=== PATIENT | female | born 1945 | race Caucasian/White ===

== ENCOUNTER → 2017-10-14 | Outpatient (CLI) | payer MEDICARE ==
[2016-12-06 14:00] VITALS: BMI 16.8
[~2017-10-14] MED LIST: ACE325 PO; ACE500 PO; ALB17R INH; ALB6.7R; ALB6.7R INH; ALBU8.5H IH; ALBU8TAB4 INH; AMO500 PO; AMOX-362 PO; AMOX500T10 PO; AMOX875T60 PO; ARTO15 OP; ASMANEXPT IH; ASPI-1471 PO; AUG500 PO; AZIT-1 PO; BEN100 PO; BENZ100C26 PO; BENZ200C15 PO; CAFF200T69 PO; CALC-515 PO; CEF300 PO; CETI-169 PO; CHOL10005 PO; CHOL200038 PO; CIP500 PO; CIPHCO RIGHT EAR; CITA-137 PO; CLAR-1 PO; CLAR-13 PO; CLI150 PO; CLO10 PO; CORED RIGHT EAR; CYAN50TA3 PO; DEN60I SUBQ; DEXL60CA6 PO; DEXT1DRO15 OP; DIA2 PO; DIA5 PO; DICL100G39 TOP; DOC100 PO; DOXY-179 PO; ESOM40CA42 PO; ESTR-1 PO; ESTR-41; ESTR-41 PO; ESTR0.5T16 PO; ESTR2TAB26 PO; FISH OIL1 CAP PO; FLU IM; FLU45SYR25 IM ONLY; FLUC100T35 PO; FLUT16SP19; FLUT16SP19 NS; FLUT16SP20 NS; FOLI-68 PO; GAS X; GLUC500C29 PO; GLUC500T13 PO; GUALA600 PO; HYD200 PO; HYDR-4225 PO; HYDR200T38 PO; HYDR200T42 PO; IBUP-1618 PO; IBUP600T22 PO; ITR100; KET10 PO; LACT1CAP6 PO; LACT1CAP74 PO; LEV500 PO; LEVO-3 PO; LEVO-85 PO; LEVO50 PO; LEVO50TA80 PO; LEVO50TA86 PO; LEVO750T44 PO; LEVO75TA73 PO; LEVO88TA45 PO; LIO5 PO; LIOT5TAB10 PO; LIOT5TAB18 PO; LOP2 PO; LOR5/325 PO; LORA-788 PO; MECL12.5 PO; MELO-205 PO; MES400 PO; MESA1.2T2 PO; MESA4ENE RC; MESA800T PO; METO-1 PO; METR-1 PO; MIRT-22 PO; MIRT-27 PO; MIRT7.5T2 PO; MOMR; MONT10TA PO; MOX400 PO; MULT-900 PO; NYSL PO; NYST100040 PO; OMEG-11 PO; ONDA4TAB PO; ONDA4TAB9 PO; OSE75 PO; PAN40 PO; PANT40TA65 PO; PNEI IJ; PNEU0.5D3 IM; POTT20 PO; PRE1 PO; PRE10 PO; PRE5 PO; PRED-1 PO; PRED-420 PO; PRED20TA6 PO; PRED5DRO34 OS; PREOD OD; PROM-110 PO; PSEU-112 PO; PSEU-123; RANI-320 PO; Sucralfate PO; TOBR5DRO OP; TRA50 PO; TRAM-420 PO; TRAM-627 PO; TRI40I IM; TRIA60LO10 TP; TUM500 PO; [UNRECOGNIZED DRUG - CODE]; [UNRECOGNIZED DRUG - CODE] IH; [UNRECOGNIZED DRUG - CODE] PO; [UNRECOGNIZED DRUG - CODE] PO; [UNRECOGNIZED DRUG - CODE] PO; [UNRECOGNIZED DRUG - CODE] PR; [UNRECOGNIZED DRUG - OTHER]
[2017-10-14 15:35] LABS: PLATELET COUNT, AUTOMATED 204 K/uL (150-450)
== END ==
LOC: LAB 14:59
PROVIDERS: ATTEND Internal Medicine
DX: R42 Dizziness and giddiness (principal); R23.2 Flushing; E03.9 Hypothyroidism, unspecified; H93.19 Tinnitus, unspecified ear; M35.00 Sjogren syndrome, unspecified; M32.9 Systemic lupus erythematosus, unspecified; E55.9 Vitamin D deficiency, unspecified; R73.09 Other abnormal glucose
CPT/HCPCS: 36415; 81001; 82040; 82247; 82306; 82310; 82374; 82435; 82565; 82947; 83036; 84075; 84132; 84155; 84295; 84443; 84450; 84460; 84520; 84550; 85025; 85651; 86038; 86140; 86200; 86430

== ENCOUNTER → 2017-11-18 | Outpatient (CLI) | payer MEDICARE ==
[2016-12-06 14:00] VITALS: BMI 16.8
[~2017-11-18] MED LIST changes: +CETI-176 PO; -HYDR200T38 PO; +HYDR200T77 PO
[2017-11-18 09:39] LABS: PLATELET COUNT, AUTOMATED 236 K/uL (150-450)
== END ==
LOC: LAB 09:12
PROVIDERS: ATTEND Internal Medicine
DX: E03.9 Hypothyroidism, unspecified (principal); R23.2 Flushing; E55.9 Vitamin D deficiency, unspecified; M32.9 Systemic lupus erythematosus, unspecified; R41.3 Other amnesia
CPT/HCPCS: 36415; 82040; 82247; 82310; 82374; 82435; 82565; 82947; 84075; 84132; 84155; 84295; 84439; 84443; 84450; 84460; 84520; 85025

== ENCOUNTER → 2018-01-17 | Outpatient (CLI) | payer MEDICARE ==
[2016-12-06 14:00] VITALS: BMI 16.8
[~2018-01-17] MED LIST changes: +CHOL200051 PO; +ESCI5TAB3 PO; +HYDR10TA3 PO
--- NOTE | 2018-01-17 09:16 | EKG ---
FACILITY: [facility] PATIENT NAME: GABRIELA ROWLEY : [id number] MR: [id number] V: [id number] EXAM DATE: ORDERING PHYSICIAN: SWATHI SIMS TECHNOLOGIST: [place] Meek Reason : CHEST PAIN Blood Pressure : / mmHG Vent. Rate : 063 BPM Atrial Rate : 063 BPM P-R Int : 140 ms QRS Dur : 084 ms QT Int : 442 ms P-R-T Axes : 083 -25 080 degrees QTc Int : 452 ms Normal sinus rhythm Right atrial enlargement Borderline ECG When compared with ECG of 21-MAR-2017 11:43, Previous ECG has undetermined rhythm, needs review Referred By: Confirmed By:
[2018-01-17 09:34] LABS: PLATELET COUNT, AUTOMATED 201 K/uL (150-450)
== END ==
LOC: LAB 08:42
PROVIDERS: ATTEND Internal Medicine
DX: I51.7 Cardiomegaly (principal); E03.9 Hypothyroidism, unspecified
CPT/HCPCS: 36415; 82040; 82247; 82310; 82374; 82435; 82565; 82947; 84075; 84132; 84155; 84295; 84439; 84443; 84450; 84460; 84484; 84520; 85025

== ENCOUNTER → 2018-04-02 | Outpatient (CLI) | payer MEDICARE ==
[2016-12-06 14:00] VITALS: BMI 16.8
--- NOTE | 2018-04-02 15:42 | EKG ---
FACILITY: [facility] PATIENT NAME: GABRIELA ROWLEY : [id number] MR: [id number] V: [id number] EXAM DATE: ORDERING PHYSICIAN: DUONG JEFFERS TECHNOLOGIST: JASMYN Test Reason : HEART PALPITATIONS Blood Pressure : / mmHG Vent. Rate : 082 BPM Atrial Rate : 082 BPM P-R Int : 136 ms QRS Dur : 084 ms QT Int : 408 ms P-R-T Axes : 085 -42 082 degrees QTc Int : 476 ms Sinus rhythm with occasional premature ventricular complexes Right atrial enlargement Left axis deviation Abnormal ECG When compared with ECG of 17-JAN-2018 07:51, premature ventricular complexes are now present Referred By: AURY Confirmed By:
== END ==
LOC: RESP 15:33
PROVIDERS: ATTEND Surgery
DX: R94.31 Abnormal electrocardiogram [ECG] [EKG] (principal)

== ENCOUNTER → 2018-04-17 | Outpatient (CLI) | payer MEDICARE ==
[2016-12-06 14:00] VITALS: BMI 16.8
[~2018-04-17] MED LIST changes: +REGADENOSON 0.4 MG/5 ML SYR ONE; -TRIA60LO10 TP; +TRIA60LO3 TP
== END ==
LOC: NUC 02:10
PROVIDERS: ATTEND Internal Medicine
DX: R07.9 Chest pain, unspecified (principal)
CPT/HCPCS: J2785

== ENCOUNTER 2018-04-21 15:18 | Emergency (ER) | payer MEDICARE ==
[2016-12-06 14:00] VITALS: Wt 40.9 kg
[2018-04-21] MEDS: NS(*) 0.9% 1000 ML BAG 1,000 ML IV ONE ×2 (10:00→16:00)
[~2018-04-21 15:18] MED LIST changes: -BUDE3CAP4 PO
--- NOTE | 2018-04-21 15:35 | ER Report ---
History and Physical Time Seen By MD: 15:34 Hx. of Stated Complaint: NAUSEA AND DIARRHEA SINCE NUC MED CONTRAST THIS AM. (ARTIS ROLLINS MD) HPI/ROS CHIEF COMPLAINT: nausea and diarrhea HISTORY OF PRESENT ILLNESS: This is a 72 year old female. She had a Lexiscan for chest pain today. This was ordered after a pre-op evaluation prior to her having a colonoscopy this week on Saturday. She had been having chest pain at time. Ongoing problem has been with diarrhea and Dr. Loomis had been evaluating. Today after getting the Lexiscan, she has had ongoing vomiting as well as worsened diarrhea. She is feeling very weak and light headed when standing. Having abdominal cramping as well. Has felt like she has been urinating more than normal today as well, but no dysuria. No fevers, but she feels very cold with shivering. General weakness, but no focal weakness in arm or leg. No cough or shortness of breath with this. No chest pain at this time. REVIEW OF SYSTEMS: As above. (ARTIS ROLLINS MD) Allergies: Coded Allergies: Sulfa (Sulfonamide Antibiotics) (Verified Allergy, Severe, VISUAL DISTURBANCES, 12/06/16) clavulanic acid (Verified Allergy, Severe, CHOLITIS, 12/06/16) metoclopramide (Verified Allergy, Severe, PSYCHOTIC EFFECTS, 12/06/16) codeine (Verified Allergy, Intermediate, NAUSEA, 12/06/16) meperidine (Verified Allergy, Intermediate, NAUSEA, HIVES, 12/06/16) morphine (Verified Allergy, Intermediate, NAUSEA, HIVES, 12/06/16) lactose (Verified Allergy, Mild, GI DISTRESS, 12/06/16) Niacin Preparations (Verified Allergy, Unknown, UNKNOWN, 12/06/16) cephalexin (Verified Allergy, Unknown, UNKNOWN, 12/06/16) furosemide (Verified Allergy, Unknown, 12/06/16) levofloxacin (Verified Adverse Reaction, Mild, 12/06/16) tendon inflammation Uncoded Allergies: erythromycin (Allergy, Unknown, 06/01/14) Home Meds Active Scripts Ondansetron (ZOFRAN ODT) 4 Mg Tab.rapdis, 4 MG PO every 6 hours Y for NAUSEA/ VOMITING, #20 TAB TAKE 1 TABLET BY MOUTH EVERY 12 HOURS Prov:MARIANO FERNANDO DO 04/21/18 Hydroxyzine Hcl (HYDROXYZINE HCL) 10 Mg Tablet, 1-2 TAB PO TID Y for itching, # 60 TAB 6 Refills Prov:SWATHI SIMS MD 04/08/18 Montelukast Sodium (SINGULAIR) 10 Mg Tablet, 1 TAB PO QDAY, #90 TAB 6 Refills Prov:SWATHI SIMS MD 11/27/17 Levothyroxine Sodium (LEVOTHYROXINE SODIUM) 75 Mcg Tablet, 75 MCG PO QDAY, #90 TAB 3 Refills Prov:SWATHI SIMS MD 11/27/17 Prednisone 5 Mg Tab (PREDNISONE 5 MG TAB) 5 Mg Tablet, 5 MG PO QDAY, #90 TAB 2 Refills Prov:SWATHI SIMS MD 11/27/17 Pantoprazole Sodium (PANTOPRAZOLE SODIUM) 40 Mg Tablet.dr, 40 MG PO QDAY, #90 TAB.SR 3 Refills Prov:SWATHI SIMS MD 11/27/17 Hydroxychloroquine Sulfate (HYDROXYCHLOROQUINE SULFATE) 200 Mg Tablet, 1 TAB PO QDAY, #90 TAB 4 Refills Prov:SWATHI SIMS MD 11/27/17 Albuterol Sulfate 90 Mcg/Act (PROAIR HFA 90 MCG/ACT) 8.5 Gm Hfa.aer.ad, 2 PUFF IH TID Y for to healp breathing. , #1 INHALER Prov:SWATHI SIMS MD 11/27/17 Fluticasone Prop 50 Mcg Ns (FLONASE 50 MCG NS) 16 Gm [place].susp, 2 SPRAYS NA QDAY for 30 Days, #1 BOT 3 Refills Prov:JAY ROWLEY JR, MD 10/31/17 Dextran 70/Hypromellose (ARTIFICIAL TEARS) 1 Each [place], 1 EACH OP QID, # 15 ML Prov:SWATHI SIMS MD 07/04/17 Reported Medications Cholecalciferol (Vitamin D3) (D-2000) 2,000 Unit Capsule, 2000 UNIT PO QDAY, CAPSULE 11/27/17 Reviewed Nurses Notes: Yes (ARTIS ROLLINS MD) Hx Smoking: No Smoking Status: Never Smoker Exposure to Second Hand Smoke?: Yes Hx Substance Use Disorder: No Hx Alcohol Use: No (ARTIS ROLLINS MD) Constitutional Vital Sign - Last 24 Hours 04/21/18 04/21/18 04/21/18 04/21/18 15:19 15:21 15:24 15:26 Pulse 82 Resp 18 B/P (MAP) 137/67 (90) 137/67 143/62 (89) 108/75 (86) Pulse Ox 92 O2 Delivery Room Air 04/21/18 04/21/18 04/21/18 04/21/18 15:28 15:34 15:46 16:00 Pulse 82 Resp 18 B/P (MAP) 61/48 (52) 142/62 (88) 141/75 (97) 134/72 (92) 108/75 (86) 61/48 (52) Pulse Ox 94 O2 Delivery Room Air 04/21/18 04/21/18 04/21/18 04/21/18 16:03 16:15 16:18 16:30 Pulse 81 84 Resp 14 13 B/P (MAP) 138/72 (94) 143/70 (94) 04/21/18 04/21/18 04/21/18 04/21/18 16:33 17:21 17:30 17:35 Pulse 80 80 Resp 12 11 B/P (MAP) 138/109 (119) 149/74 (99) 04/21/18 04/21/18 04/21/18 04/21/18 17:45 17:50 18:05 18:20 Pulse 79 80 82 Resp 17 42 28 B/P (MAP) 144/79 (100) 04/21/18 04/21/18 04/21/18 04/21/18 18:35 18:40 19:25 19:40 Pulse 90 70 83 84 Resp 13 12 13 12 Pulse Ox 96 95 04/21/18 04/21/18 04/21/18 04/21/18 19:55 20:10 20:25 20:26 Pulse 102 78 79 81 Resp 44 15 21 18 B/P (MAP) 150/84 (106) 150/84 (106) Pulse Ox 96 95 O2 Delivery Room Air 04/21/18 04/21/18 20:27 20:29 Pulse 85 101 Resp 18 18 B/P (MAP) 140/73 (95) 137/86 (103) Pulse Ox 93 96 O2 Delivery Room Air Room Air (MARIANO FERNANDO DO) Physical Exam General Appearance: The patient is alert. No acute distress. Eyes: Pupils are equal, round. No pallor, injection or icterus. ENT: Mucous membranes are dry, but otherwise normal oral mucosa. Posterior oropharynx is normal. Normal nasal mucosa. Normal tympanic membranes and canals. Neck: Supple and non tender. Respiratory: Breathing easily and unlabored. Lungs are clear to auscultation. Cardiovascular: Regular rate and rhythm. No murmurs, gallops or rubs. Normal capillary refill. No edema. Gastrointestinal: Abdomen is soft, some discomfort with palpation on the left abdomen. Nondistended. Some guarding, but no rebound. Hyperactive bowel sounds. Neurological: Alert and oriented x3. Skin: Warm and dry. DIFFERENTIAL DIAGNOSIS: After history and physical exam, differential diagnosis was considered for diarrhea and abdominal cramping, the diarrhea has been chronic and undergoing workup with Dr. Frazier, worsen diarrhea and vomiting after nuclear med scan today. ([facility]) Medical Decision Making Data Points Result Diagram: 04/21/18 18004/21/18 180 Laboratory Hematology Test 04/21/18 16:50 04/21/18 18:05 Urine Color Straw Urine Clarity Clear Urine pH 7.0 pH (4.8-9.5) Urine Specific [place] 1.008 Urine Protein Negative mg/dL (NEGATIVE) Urine Glucose (UA) Negative mg/dL (NEGATIVE) Urine Ketones Trace mg/dL (NEGATIVE) Urine Blood Small (NEGATIVE) Urine Nitrite Negative (NEGATIVE) Urine Bilirubin Negative (NEGATIVE) Urine Urobilinogen Negative mg/dL (0.2-1.9) Urine Leukocyte Esterase Negative (NEGATIVE) Urine RBC 1 /HPF (0-2/HPF) Urine WBC 3 /HPF (0-5/HPF) Urine Squamous Epithelial Cells None /LPF (</=FEW) Urine Bacteria Negative /HPF (NONE-FEW) Urine Mucus None /HPF (NONE-FEW) Red Blood Count 4.25 M/uL (4.17-5.56) Mean Corpuscular Volume 93.1 fL (80.0-96.0) Mean Corpuscular Hemoglobin 32.0 pg (26.0-33.0) Mean Corpuscular Hemoglobin Concent 34.3 g/dL (32.0-36.0) Red Cell Distribution Width 13.5 % (11.5-14.5) Mean Platelet Volume 8.7 fL (7.2-11.1) Neutrophils (%) (Auto) 83.7 % (39.4-72.5) Lymphocytes (%) (Auto) 8.1 % (17.6-49.6) Monocytes (%) (Auto) 7.5 % (4.1-12.4) Eosinophils (%) (Auto) 0.6 % (0.4-6.7) Basophils (%) (Auto) 0.1 % (0.3-1.4) Nucleated RBC Relative Count (auto) 0.0 /100WBC Neutrophils # (Auto) 6.9 K/uL (2.0-7.4) Lymphocytes # (Auto) 0.7 K/uL (1.3-3.6) Monocytes # (Auto) 0.6 K/uL (0.3-1.0) Eosinophils # (Auto) 0.0 K/uL (0.0-0.5) Basophils # (Auto) 0.0 K/uL (0.0-0.1) Nucleated RBC Absolute Count (auto) 0.00 K/uL Sodium Level 141 mmol/L (137-145) Potassium Level 3.7 mmol/L (3.5-5.0) Chloride Level 107 mmol/L (98-107) Carbon Dioxide Level 24 mmol/L (22-31) Blood Urea Nitrogen 9 mg/dl (7-18) Creatinine 0.70 mg/dl (0.52-1.04) Glomerular Filtration Rate Calc > 60.0 Random Glucose 83 mg/dl (75-110) Calcium Level 7.8 mg/dl (8.4-10.2) Total Bilirubin 0.5 mg/dl (0.2-1.3) Aspartate Amino Transf (AST/SGOT) 25 U/L (0-35) Alanine Aminotransferase (ALT/SGPT) 23 U/L (0-56) Alkaline Phosphatase 59 U/L (0-126) Troponin I < 0.012 ng/ml Total Protein 6.2 g/dl (6.3-8.2) Albumin 3.4 g/dl (3.5-5.0) Chemistry Test 04/21/18 16:50 04/21/18 18:05 Urine Color Straw Urine Clarity Clear Urine pH 7.0 pH (4.8-9.5) Urine Specific [place] 1.008 Urine Protein Negative mg/dL (NEGATIVE) Urine Glucose (UA) Negative mg/dL (NEGATIVE) Urine Ketones Trace mg/dL (NEGATIVE) Urine Blood Small (NEGATIVE) Urine Nitrite Negative (NEGATIVE) Urine Bilirubin Negative (NEGATIVE) Urine Urobilinogen Negative mg/dL (0.2-1.9) Urine Leukocyte Esterase Negative (NEGATIVE) Urine RBC 1 /HPF (0-2/HPF) Urine WBC 3 /HPF (0-5/HPF) Urine Squamous Epithelial Cells None /LPF (</=FEW) Urine Bacteria Negative /HPF (NONE-FEW) Urine Mucus None /HPF (NONE-FEW) White Blood Count 8.3 k/uL (4.5-11.0) Red Blood Count 4.25 M/uL (4.17-5.56) Hemoglobin 13.6 g/dL (12.0-16.0) Hematocrit 39.6 % (34.0-47.0) Mean Corpuscular Volume 93.1 fL (80.0-96.0) Mean Corpuscular Hemoglobin 32.0 pg (26.0-33.0) Mean Corpuscular Hemoglobin Concent 34.3 g/dL (32.0-36.0) Red Cell Distribution Width 13.5 % (11.5-14.5) Platelet Count 169 K/uL (150-450) Mean Platelet Volume 8.7 fL (7.2-11.1) Neutrophils (%) (Auto) 83.7 % (39.4-72.5) Lymphocytes (%) (Auto) 8.1 % (17.6-49.6) Monocytes (%) (Auto) 7.5 % (4.1-12.4) Eosinophils (%) (Auto) 0.6 % (0.4-6.7) Basophils (%) (Auto) 0.1 % (0.3-1.4) Nucleated RBC Relative Count (auto) 0.0 /100WBC Neutrophils # (Auto) 6.9 K/uL (2.0-7.4) Lymphocytes # (Auto) 0.7 K/uL (1.3-3.6) Monocytes # (Auto) 0.6 K/uL (0.3-1.0) Eosinophils # (Auto) 0.0 K/uL (0.0-0.5) Basophils # (Auto) 0.0 K/uL (0.0-0.1) Nucleated RBC Absolute Count (auto) 0.00 K/uL Glomerular Filtration Rate Calc > 60.0 Calcium Level 7.8 mg/dl (8.4-10.2) Total Bilirubin 0.5 mg/dl (0.2-1.3) Aspartate Amino Transf (AST/SGOT) 25 U/L (0-35) Alanine Aminotransferase (ALT/SGPT) 23 U/L (0-56) Alkaline Phosphatase 59 U/L (0-126) Troponin I < 0.012 ng/ml Total Protein 6.2 g/dl (6.3-8.2) Albumin 3.4 g/dl (3.5-5.0) Urinalysis Test 04/21/18 16:50 Urine Color Straw Urine Clarity Clear Urine pH 7.0 pH (4.8-9.5) Urine Specific [place] 1.008 Urine Protein Negative mg/dL (NEGATIVE) Urine Glucose (UA) Negative mg/dL (NEGATIVE) Urine Ketones Trace mg/dL (NEGATIVE) Urine Blood Small (NEGATIVE) Urine Nitrite Negative (NEGATIVE) Urine Bilirubin Negative (NEGATIVE) Urine Urobilinogen Negative mg/dL (0.2-1.9) Urine Leukocyte Esterase Negative (NEGATIVE) Urine RBC 1 /HPF (0-2/HPF) Urine WBC 3 /HPF (0-5/HPF) Urine Squamous Epithelial Cells None /LPF (</=FEW) Urine Bacteria Negative /HPF (NONE-FEW) Urine Mucus None /HPF (NONE-FEW) (MARIANO FERNANDO DO) EKG/Imaging EKG Interpretation 12 lead EKG: Rhythm: Normal sinus rhythm, rate 92 [place]: Left axis deviation QRS: normal ST segments: No ST segment elevation or depression (ARTIS ROLLINS MD) Imaging Results: CT scan of the abdomen and pelvis with IV contrast was obtained. The results of the study are EXAMINATION: CT abdomen and pelvis with contrast COMPARISON: None. HISTORY: Chronic worsening abdominal cramping and diarrhea. PROCEDURE: Multiplanar contrast enhanced CT of the abdomen and pelvis with 75 mL intravenous Isovue 370. One of the following dose optimization techniques was utilized in the performance of this exam: Automated exposure control; adjustment of the mA and/or kV according to the patient's size; or use of an iterative reconstruction technique. Specific details can be referenced in the facility's radiology CT exam operational policy. FINDINGS: Visualized thorax: No evidence of acute disease within the visualized lower thorax. Liver: Negative. Gallbladder and biliary system: Negative Spleen: Negative. Pancreas: Negative. Adrenal glands: Negative. Kidneys and bladder: No definite radiopaque urolithiasis is identified. Bilateral mild pelviectasis is favored to be physiologic; no caliectasis or definite radiopaque urolithiasis is identified. Urinary bladder is within normal limits. Vessels: Aortoiliac moderate atherosclerosis. No aneurysm. Portal venous system and IVC are within normal limits. The superior mesenteric artery and superior mesenteric vein are patent. Bowel and mesentery: Stomach is within normal limits. Mildly prominent fluid- filled loops of proximal and mid small bowel. The distal small bowel wall including the terminal ileum is markedly thickened and edematous with prominent associated mesenteric edema as well as trace fluid tracking along the mesenteric leaves and within the dependent pelvis. No bowel wall pneumatosis. The appendix is not identified. Minimal liquid stool in the colon. Sigmoidectomy with a few diverticula along the distal colon. No definite site of acute colonic inflammation. Pelvic organs: Hysterectomy. No adnexal mass. Lymph nodes: No adenopathy. Free air/free fluid: Small amount of fluid extending along the mesentery and within the dependent pelvis is noted above. No organized fluid collection. No pneumoperitoneum. Abdominal wall and osseous structures: Abdominal wall is intact. Osseous structures are demineralized. Prior discectomy and posterior decompression at L4 -L5. No acute osseous abnormality. IMPRESSION: 1. Marked inflammation of the distal small bowel and terminal ileum is most suggestive of an infectious versus inflammatory enteritis. Ischemic enteritis due to distal mesenteric vascular occlusion is thought to be less likely. 2. Small amount of free fluid in the mesentery and dependent pelvis. This is favored to be reactive with fluid related to infection or perforation consider less likely. 3. Additional nonacute findings as described above. The study was read by the radiologist. I viewed the images myself on the PACS system. (MARIANO FERNANDO DO) ED Course/Re-evaluation Clinical Indication for ER IV: Hydration, IV Access ED Course Orthostatic hypotension and dizziness with sitting and then much worse with standing. Turned Over The care of the patient was turned over to Dr. Fernando. Artis Rollins M.D. I authorize my typed signature that I authenticated this report. (ARTIS ROLLINS MD) Clinical Indication for ER IV: Hydration, IV Access ED Course Care assumed at shift change from Dr. Rollins with a diagnostic CT pending of her abdomen. Patient's had long-term diarrhea undergoing an extensive evaluation. She has a colonoscopy planned in 2 days. She has a family history of inflammatory bowel disease. Her orthostatics are grossly positive with significant drop in her blood pressure from 140-60 systolic. He was hydrated with 2 L of crystalloid. Her CAT scan returns with gross enteritis, either infectious or inflammatory. Ischemic bowel is pretty much ruled out with good perfusion of the arteries on CT scan with contrast. Patient repeat orthostatics are unremarkable. Patient's diagnostic laboratory studies are unremarkable. Patient be discharged home on clear liquid diet with Zofran. 04/21/2018 8:26:05 pm case discussed with Dr. Jamal Frazier, general surgeon on- call, who is agreeable with the patient going home. His lungs. Orthostatics are unremarkable. Decision to Disposition Date: Apr 21, 2018 Decision to Disposition Time: 20:20 (MARIANO FERNANDO DO) Depart Departure Latest Vital Signs Vital Signs Date Time Temp Pulse Resp B/P (MAP) Pulse Ox O2 Delivery O2 Flow Rate FiO2 04/21/18 20:29 101 18 137/86 (103) 96 Room Air (MARIANO FERNANDO DO) Impression: Primary Impression: Near syncope Additional Impressions: Vomiting and diarrhea Enteritis Condition: Improved Disposition: HOME OR SELF-CARE Referrals: SWATHI SIMS MD (PCP) New Scripts Ondansetron (ZOFRAN ODT) 4 Mg Tab.rapdis 4 MG PO every 6 hours Y for NAUSEA/VOMITING, #20 TAB TAKE 1 TABLET BY MOUTH EVERY 12 HOURS Prov: MARIANO FERNANDO DO 04/21/18 Patient Instructions: Near Syncope (ED) Additional Instructions: Drink plenty of fluids, especially sports drinks with electrolytes Use Zofran to control nausea and vomiting Follow-up with Dr. Frazier as planned Problem Qualifiers ARTIS ROLLINS MD Apr 21, 2018 15:34 MARIANO FERNANDO DO Apr 21, 2018 20:23
[2018-04-21] MEDS ORDERED: EMS NS 0.9%(*) 1000 ML BAG 1,000 ML IV ONE (16:30)
[2018-04-21] MEDS ORDERED: IOPAMIDOL 76% 75 ML INFUS BTL 75 ML ONE (16:48)
--- NOTE | 2018-04-21 16:55 | EKG ---
FACILITY: [facility] PATIENT NAME: GABRIELA ROWLEY : [id number] MR: [id number] V: [id number] EXAM DATE: ORDERING PHYSICIAN: LORA MCINTYRE TECHNOLOGIST: LARISA Meek Reason : DIZZY Blood Pressure : / mmHG Vent. Rate : 092 BPM Atrial Rate : 092 BPM P-R Int : 132 ms QRS Dur : 080 ms QT Int : 360 ms P-R-T Axes : 084 -58 072 degrees QTc Int : 445 ms Normal sinus rhythm with sinus arrhythmia Right atrial enlargement Left axis deviation Pulmonary disease pattern Abnormal ECG When compared with ECG of 02-APR-2018 13:47, premature ventricular complexes are no longer present Referred By: MIGUELINA Confirmed By:
[2018-04-21 18:14] LABS: PLATELET COUNT, AUTOMATED 169 K/uL (150-450)
--- NOTE | 2018-04-21 20:12 | RADIOLOGY IMAGING REPORT ---
[place] [facility] [place] Temo Chavez : 1945 MR: [id number] V: [id number] EXAM DATE: ORDERING PHYSICIAN: LORA MCINTYRE TECHNOLOGIST: Location: [facility] [place] Patient: Temo Chavez : 1945 Visit/Account:[id number] Date of Sevice: 04/21/2018 EXAMINATION: CT abdomen and pelvis with contrast COMPARISON: None. HISTORY: Chronic worsening abdominal cramping and diarrhea. PROCEDURE: Multiplanar contrast enhanced CT of the abdomen and pelvis with 75 mL intravenous Isovue 3 70. One of the following dose optimization techniques was utilized in the performance of this exam: A utomated exposure control; adjustment of the mA and/or kV according to the patient's size; or use of an iterative reconstruction technique. Specific details can be referenced in the facility's radiolo gy CT exam operational policy. FINDINGS: Visualized thorax: No evidence of acute disease within the visualized lower thorax. Liver: Negative. Gallbladder and biliary system: Negative Spleen: Negative. Pancreas: Negative. Adrenal glands: Negative. Kidneys and bladder: No definite radiopaque urolithiasis is identified. Bilateral mild pelviectasis i s favored to be physiologic; no caliectasis or definite radiopaque urolithiasis is identified. Urinar y bladder is within normal limits. Vessels: Aortoiliac moderate atherosclerosis. No aneurysm. Portal venous system and IVC are within no rmal limits. The superior mesenteric artery and superior mesenteric vein are patent. Bowel and mesentery: Stomach is within normal limits. Mildly prominent fluid-filled loops of proximal and mid small bowel. The distal small bowel wall including the terminal ileum is markedly thickened and edematous with prominent associated mesenteric edema as well as trace fluid tracking along the me senteric leaves and within the dependent pelvis. No bowel wall pneumatosis. The appendix is not ident ified. Minimal liquid stool in the colon. Sigmoidectomy with a few diverticula along the distal colon . No definite site of acute colonic inflammation. Pelvic organs: Hysterectomy. No adnexal mass. Lymph nodes: No adenopathy. Free air/free fluid: Small amount of fluid extending along the mesentery and within the dependent pel vis is noted above. No organized fluid collection. No pneumoperitoneum. Abdominal wall and osseous structures: Abdominal wall is intact. Osseous structures are demineralized . Prior discectomy and posterior decompression at L4-L5. No acute osseous abnormality. IMPRESSION: 1. Marked inflammation of the distal small bowel and terminal ileum is most suggestive of an infectio us versus inflammatory enteritis. Ischemic enteritis due to distal mesenteric vascular occlusion is t hought to be less likely. 2. Small amount of free fluid in the mesentery and dependent pelvis. This is favored to be reactive w ith fluid related to infection or perforation consider less likely. 3. Additional nonacute findings as described above. Results were discussed with Dr. Karen Fernando at 04/21/2018 8:04 PM. Report Dictated By: Joby Ramirez MD at 04/21/2018 7:52 PM Report E-Signed By: Joby Ramirez MD at 04/21/2018 8:08 PM WSN:[id number]
[2018-04-21 20:29] VITALS: BP 137/86
[2018-04-21] MEDS ORDERED: ONDA4TAB PO (20:37)
[2018-04-21] MEDS ORDERED: ONDANSETRON 4 MG ODT TH SL ONE (20:40)
[2018-04-25] MEDS ORDERED: BUDE3CAP4 PO (11:31)
== END 2018-04-21 21:00 | disposition home or self-care (01) ==
LOC: ER 15:28
DX: K52.9 Noninfective gastroenteritis and colitis, unspecified (principal); R55 Syncope and collapse; R11.10 Vomiting, unspecified; R19.7 Diarrhea, unspecified
CPT/HCPCS: 36415; 74177; 78452; 81001; 84484; 85025; 93005; 93017; 96360; 96361; 99284; A9500; J2785; J7030; Q0162; Q9967; 82040; 82247; 82310; 82374; 82435; 82565; 82947; 84075; 84132; 84155; 84295; 84450; 84460; 84520; S0119

== ENCOUNTER → 2018-04-21 | Outpatient (CLI) | payer MEDICARE ==
[2016-12-06 14:00] VITALS: BMI 16.8
[~2018-04-21] MED LIST changes: -REGADENOSON 0.4 MG/5 ML SYR ONE
--- NOTE | 2018-04-21 18:18 | RADIOLOGY IMAGING REPORT ---
FACILITY: [facility] PATIENT NAME: Temo Chavez : 1945 MR: [id number] V: [id number] EXAM DATE: ORDERING PHYSICIAN: SWATHI SIMS TECHNOLOGIST: Location: [facility] Patient: Temo Chavez : 1945 Visit/Account:[id number] Date of Sevice: 04/21/2018 EXAMINATION: Single isotope SPECT imaging with Regadenoson infusion and gated SPECT imaging. DATE OF EXAMINATION: April 21, 2018. DATE OF INTERPRETATION: April 21, 2018. REQUESTING PHYSICIAN: SWATHI SIMS. INDICATION: The patient is a 72-year-old female evaluated for CAD. PROCEDURE: After informed consent the patient received an intravenous injection of 12.4 mCi of Tc-99 m sestamibi followed at an appropriate time interval by rest imaging. The patient then subsequently received an intravenous infusion of 0.4 mg of Regadenoson per protocol without complication. Resting heart rate was 78 bpm with a peak heart rate of 105 bpm. Blood pressure at rest was 152 / 84 and fo llowing infusion was 154 / 80. Baseline EKG demonstrates normal sinus rhythm. There were no diagnos tic EKG changes of ischemia following infusion. Symptoms were nonspecific. The patient then receive d an intravenous injection of 27.6 mCi of Tc-99m sestamibi followed by stress imaging. RAW DATA: Examination of the summed raw data revealed a good quality study. MYOCARDIAL PERFUSION: The tomographic images demonstrate normal perfusion both at rest and at stress . GATED IMAGES: The gated images demonstrate a normal if not hyperdynamic ejection fraction at 70% or greater. IMPRESSION: 1. Baseline EKG is unremarkable and there are no changes with stress 2. Normal myocardial perfusion scan. 3. Hyperdynamic LV systolic function; LVEF greater than 70%. 4. Based on the results of this exam, the patient appears to be at low risk for future cardiovascular events. Report Dictated By: Gerard Elias MD at 04/21/2018 6:11 PM Report E-Signed By: Gerard Elias MD at 04/21/2018 6:14 PM WSN:[id number]
== END ==
LOC: RESP 00:25
PROVIDERS: ATTEND Internal Medicine
DX: R07.9 Chest pain, unspecified (principal)
CPT/HCPCS: 78452; 93017; A9500; J2785

== ENCOUNTER → 2018-04-21 | Outpatient (CLI) | payer MEDICARE ==
[2016-12-06 14:00] VITALS: BMI 16.8
[~2018-04-21] MED LIST changes: +BUDE3CAP4 PO
== END ==
LOC: AMB 14:47
PROVIDERS: ATTEND Nurse Practitioner
DX: R10.84 Generalized abdominal pain (principal); R53.1 Weakness
CPT/HCPCS: A0425; A0427

== ENCOUNTER → 2018-05-13 | Outpatient (CLI) | payer MEDICARE ==
[2016-12-06 14:00] VITALS: BMI 16.8
[~2018-05-13] MED LIST changes: +BUDE3CAP4 PO; +METR-160 PO
== END ==
LOC: LAB 09:19
PROVIDERS: ATTEND Surgery
DX: R19.7 Diarrhea, unspecified (principal)
CPT/HCPCS: 82274; 82705; 83630; 87045; 87177; 87205; 87324; 87449

== ENCOUNTER 2018-05-20 00:45 | Day surgery (SDC) | payer MEDICARE ==
[2016-12-06 14:00] VITALS: Ht 154.9 cm; Wt 39.0 kg
[~2018-05-20] VITALS: Ht 154.9 cm; Wt 39.0 kg
[2018-05-20] MEDS ORDERED: PROPOFOL EMUL(*) 10MG/ML 20 ML 20 ML ONE (07:10)
[2018-05-20 09:36] VITALS: BP 128/79
[2018-05-20] MEDS ORDERED: LIDOCAINE/SOD BICARB 8.4% SYR ID ONE (10:10)
[2018-05-20] MEDS ORDERED: NORMOSOL R SOLN(*) 1000 ML BAG 1,000 ML IV PRN (10:10)
[2018-05-20 11:22] VITALS: BP 94/45
--- NOTE | 2018-05-20 11:27 | Short(Outpt) Discharge Summary ---
Discharge Summary Reason for Hosp/Final Diag: (1) Diarrhea Status: Chronic Hospital Course & Plan: Colonoscopy with biopsies of terminal ileum and random colon biopsies completed without problems. Departure Discharge to: Home, Self Care Discharge Instructions Home Meds Active Scripts Budesonide (ENTOCORT EC) 3 Mg Capdr...er, 3 CAP PO QDAY, #90 CAP 3 Refills Prov:DUONG JEFFERS MD 04/25/18 Hydroxyzine Hcl (HYDROXYZINE HCL) 10 Mg Tablet, 1-2 TAB PO TID Y for itching, # 60 TAB 6 Refills Prov:SWATHI SIMS MD 04/08/18 Montelukast Sodium (SINGULAIR) 10 Mg Tablet, 1 TAB PO QDAY, #90 TAB 6 Refills Prov:SWATHI SIMS MD 11/27/17 Levothyroxine Sodium (LEVOTHYROXINE SODIUM) 75 Mcg Tablet, 75 MCG PO QDAY, #90 TAB 3 Refills Prov:SWATHI SIMS MD 11/27/17 Prednisone 5 Mg Tab (PREDNISONE 5 MG TAB) 5 Mg Tablet, 5 MG PO QDAY, #90 TAB 2 Refills Prov:SWATHI SIMS MD 11/27/17 Pantoprazole Sodium (PANTOPRAZOLE SODIUM) 40 Mg Tablet.dr, 40 MG PO QDAY, #90 TAB.SR 3 Refills Prov:SWATHI SIMS MD 11/27/17 Hydroxychloroquine Sulfate (HYDROXYCHLOROQUINE SULFATE) 200 Mg Tablet, 1 TAB PO QDAY, #90 TAB 4 Refills Prov:SWATHI SIMS MD 11/27/17 Albuterol Sulfate 90 Mcg/Act (PROAIR HFA 90 MCG/ACT) 8.5 Gm Hfa.aer.ad, 2 PUFF IH TID Y for to healp breathing. , #1 INHALER Prov:SWATHI SIMS MD 11/27/17 Fluticasone Prop 50 Mcg Ns (FLONASE 50 MCG NS) 16 Gm [place].susp, 2 SPRAYS NA QDAY for 30 Days, #1 BOT 3 Refills Prov:JAY ROWLEY JR, MD 10/31/17 Dextran 70/Hypromellose (ARTIFICIAL TEARS) 1 Each Droperette, 1 EACH OP QID, # 15 ML Prov:SWATHI SIMS MD 07/04/17 Reported Medications Cholecalciferol (Vitamin D3) (D-2000) 2,000 Unit Capsule, 2000 UNIT PO QDAY, CAPSULE 11/27/17 Discontinued Scripts Amoxicillin 500 Mg Tab (AMOXICILLIN 500 MG TAB) 500 Mg Tablet, 1 TAB PO Q8H, # 21 TAB 0 Refills Prov:DUONG JEFFERS MD 05/12/18 Metronidazole (METRONIDAZOLE) 500 Mg Tablet, 1 TAB PO TID, #21 TAB 0 Refills Prov:DUONG JEFFERS MD 05/12/18 Ondansetron (ZOFRAN ODT) 4 Mg Tab.rapdis, 4 MG PO every 6 hours Y for NAUSEA/ VOMITING, #20 TAB TAKE 1 TABLET BY MOUTH EVERY 12 HOURS Prov:MARIANO CRISTOBAL DO 04/21/18 Diet: Regular Activity: As Tolerated Special Instructions: Your colonoscopy was completed without any problems and your prep was excellent (Good Job!!). I took biopsies from your small bowel and colon but I didn't find any evidence of inflammation (crohn's or ulcerative colitis), polyps, or cancer. My office will call you today or tomorrow to schedule a follow up appointment with me. Problem Qualifiers (1) Diarrhea: Diarrhea type: unspecified type Qualified Codes: R19.7 - Diarrhea, unspecified DUONG JEFFERS MD May 20, 2018 11:27
[2018-05-20 11:45] VITALS: BP 121/75
[2018-05-20 11:58] VITALS: BP 127/71
[2018-05-20 11:59] VITALS: BP 116/68
== END 2018-05-20 12:25 | disposition home or self-care (01) ==
LOC: OR 00:45
PROVIDERS: ATTEND Surgery
DX: K52.9 Noninfective gastroenteritis and colitis, unspecified (principal); F32.9 Major depressive disorder, single episode, unspecified; K21.9 Gastro-esophageal reflux disease without esophagitis; J44.9 Chronic obstructive pulmonary disease, unspecified; K27.9 Peptic ulcer, site unspecified, unspecified as acute or chronic, without hemorrhage or perforation; E03.9 Hypothyroidism, unspecified; J45.909 Unspecified asthma, uncomplicated
CPT/HCPCS: 00811; 45380; 88305; J2704

== ENCOUNTER 2018-09-03 14:30 | Observation (INO) | payer MEDICARE ==
[~2018-09-03] VITALS: Ht 154.9 cm; Wt 39.9 kg
[~2018-09-03 14:30] MED LIST changes: +FLU180SY11 IM; -METR-160 PO; +METR500T54 PO
--- NOTE | 2018-09-03 14:41 | ER Report ---
History and Physical Time Seen By MD: 14:42 HPI/ROS CHIEF COMPLAINT: Chest pain HISTORY OF PRESENT ILLNESS: 72-year-old female patient presents to emergency room with complaints of chest pain. Patient states that she had a sudden onset of chest pain approximately 2:00 this afternoon. She states that she was having abdominal pain as well. states that all she is complaining of this that she passed out in his arms. He did put his oxygen on her and he says that seemed to help. When she came to she said that she felt like she is going to have diarrhea. He helped her to the bathroom. He states that she sat there for a little while, she was unsure if she had any bowel movement. He states that she was then complaining of chest pain and decided to bring her up here for evaluation. She denies any nausea, vomiting. She has not taken any medication for this. She states that she had been short of breath however she is not at this time. REVIEW OF SYSTEMS: Respiratory: As noted above Cardiovascular: As noted above Gastrointestinal: No vomiting, no abdominal pain. Musculoskeletal: No back pain. Allergies: Coded Allergies: Sulfa (Sulfonamide Antibiotics) (Verified Allergy, Severe, VISUAL DISTURBANCES, 09/03/18) clavulanic acid (Verified Allergy, Severe, CHOLITIS, 09/03/18) metoclopramide (Verified Allergy, Severe, PSYCHOTIC EFFECTS, 09/03/18) codeine (Verified Allergy, Intermediate, NAUSEA, 09/03/18) meperidine (Verified Allergy, Intermediate, NAUSEA, HIVES, 09/03/18) morphine (Verified Allergy, Intermediate, NAUSEA, HIVES, 09/03/18) lactose (Verified Allergy, Mild, GI DISTRESS, 09/03/18) Niacin Preparations (Verified Allergy, Unknown, UNKNOWN, 09/03/18) cephalexin (Verified Allergy, Unknown, UNKNOWN, 09/03/18) erythromycin base (Verified Allergy, Unknown, 09/03/18) furosemide (Verified Allergy, Unknown, 09/03/18) levofloxacin (Verified Adverse Reaction, Mild, 09/03/18) tendon inflammation Home Meds Active Scripts Albuterol Sulfate 90 Mcg/Act (PROAIR HFA 90 MCG/ACT) 8.5 Gm Hfa.aer.ad, 2 PUFF IH TID PRN for to help breathing, #1 INHALER 1 Refill Prov:SWATHI SMIS MD 08/25/18 Budesonide (ENTOCORT EC) 3 Mg Capdr...er, 3 CAP PO QDAY, #90 CAP 3 Refills Prov:DUONG JEFFERS MD 04/25/18 Hydroxyzine Hcl (HYDROXYZINE HCL) 10 Mg Tablet, 1-2 TAB PO TID PRN for itching, #60 TAB 6 Refills Prov:SWATHI SIMS MD 04/08/18 Montelukast Sodium (SINGULAIR) 10 Mg Tablet, 1 TAB PO QDAY, #90 TAB 6 Refills Prov:SWATHI SIMS MD 11/27/17 Levothyroxine Sodium (LEVOTHYROXINE SODIUM) 75 Mcg Tablet, 75 MCG PO QDAY, #90 TAB 3 Refills Prov:SWATHI SIMS MD 11/27/17 Prednisone 5 Mg Tab (PREDNISONE 5 MG TAB) 5 Mg Tablet, 5 MG PO QDAY, #90 TAB 2 Refills Prov:SWATHI SIMS MD 11/27/17 Pantoprazole Sodium (PANTOPRAZOLE SODIUM) 40 Mg Tablet.dr, 40 MG PO QDAY, #90 TAB.SR 3 Refills Prov:SWATHI SIMS MD 11/27/17 Hydroxychloroquine Sulfate (HYDROXYCHLOROQUINE SULFATE) 200 Mg Tablet, 1 TAB PO QDAY, #90 TAB 4 Refills Prov:SWATHI SIMS MD 11/27/17 Fluticasone Prop 50 Mcg Ns (FLONASE 50 MCG NS) 16 Gm [place].susp, 2 SPRAYS NA QDA Y for 30 Days, #1 BOT 3 Refills Prov:EDDIE ROWLEY JR, MD 10/31/17 Dextran 70/Hypromellose (ARTIFICIAL TEARS) 1 Each [place]pe[place], 1 EACH OP QID, #15 ML Prov:SWATHI SIMS MD 07/04/17 Reported Medications Ibuprofen (IBUPROFEN) 200 Mg Capsule, 1 CAP PO Q6H PRN for pain, CAPSULE 09/03/18 Cholecalciferol (Vitamin D3) (D-2000) 2,000 Unit Capsule, 2000 UNIT PO QDAY, CAPSULE 11/27/17 Past Medical/Surgical History Patient has a past medical history of possible MS, seizures, asthma, occasional skipped heartbeat, hyperlipidemia, asthma, pneumonia, ulcerative colitis, hiatal hernia, arthritis, fractures, back pain, difficulty swallowing, Sjorgren syndrome, shingles, basal cell carcinoma, depression. Patient has surgical history of basal cell carcinoma removed, bilateral cataract surgery, back fusion, rotator cuff surgery, right knee surgery, hysterectomy, partial colectomy, appendectomy, bilateral inguinal hernia repair. Patient has a family medical history of cancer, CAD, stroke, diabetes. Reviewed Nurses Notes: Yes Hx Smoking: No Smoking Status: Never Smoker Exposure to Second Hand Smoke?: Yes Hx Substance Use Disorder: No Hx Alcohol Use: No Constitutional Vital Sign - Last 24 Hours 09/03/18 09/03/18 09/03/18 09/03/18 14:36 14:38 14:45 15:10 Temp 98.1 Pulse 86 84 Resp 16 21 B/P (MAP) 164/94 164/94 (117) 151/74 (99) 159/80 (106) Pulse Ox 95 96 O2 Delivery Room Air 09/03/18 09/03/18 09/03/18 09/03/18 15:15 15:30 15:45 15:56 Pulse 79 81 81 Resp 12 31 12 B/P (MAP) 145/117 (126) 156/93 (114) 162/87 (112) 130/65 (86) Pulse Ox 96 93 09/03/18 09/03/18 09/03/18 09/03/18 16:00 16:11 16:15 16:15 Pulse 76 79 79 Resp 10 10 B/P (MAP) 135/64 (87) 119/63 (81) 141/73 (95) 141/73 (95) Pulse Ox 87 96 96 09/03/18 09/03/18 09/03/18 09/03/18 16:30 16:45 17:00 17:15 Pulse 72 76 81 72 Resp 14 14 13 17 B/P (MAP) 135/65 (88) 133/70 (91) 119/65 (83) 122/62 (82) Pulse Ox 85 87 89 90 09/03/18 09/03/18 09/03/18 17:30 17:45 19:06 Pulse 75 67 Resp 17 13 B/P (MAP) 116/54 (74) 136/76 (96) 152/70 (97) Pulse Ox 89 Physical Exam General Appearance: The patient is alert, has no immediate need for airway protection and no current signs of toxicity. Respiratory: Chest is non tender, lungs are clear to auscultation. Cardiac: regular rate and rhythm Gastrointestinal: Abdomen is soft and non tender, no masses, bowel sounds normal. Musculoskeletal: Neck: Neck is supple and non tender. Extremities have full range of motion and are non tender. Skin: No rashes or lesions. DIFFERENTIAL DIAGNOSIS: After history and physical exam differential diagnosis was considered for chest pain including but not limited to myocardial ischemia, pericarditis pulmonary embolus, chest wall pain, pleural inflammation and pulmonary infectious causes. Medical Decision Making Data Points Result Diagram: 09/03/18 1456 09/03/18 1456 Laboratory Hematology Test 09/03/18 14:56 09/03/18 15:06 Red Blood Count 4.22 M/uL (4.17-5.56) Mean Corpuscular Volume 91.5 fL (80.0-96.0) Mean Corpuscular Hemoglobin 31.1 pg (26.0-33.0) Mean Corpuscular Hemoglobin Concent 33.9 g/dL (32.0-36.0) Red Cell Distribution Width 13.6 % (11.5-14.5) Mean Platelet Volume 9.2 fL (7.2-11.1) Neutrophils (%) (Auto) 63.7 % (39.4-72.5) Lymphocytes (%) (Auto) 20.9 % (17.6-49.6) Monocytes (%) (Auto) 10.4 % (4.1-12.4) Eosinophils (%) (Auto) 3.4 % (0.4-6.7) Basophils (%) (Auto) 1.6 % (0.3-1.4) Nucleated RBC Relative Count (auto) 0.0 /100WBC Neutrophils # (Auto) 3.0 K/uL (2.0-7.4) Lymphocytes # (Auto) 1.0 K/uL (1.3-3.6) Monocytes # (Auto) 0.5 K/uL (0.3-1.0) Eosinophils # (Auto) 0.2 K/uL (0.0-0.5) Basophils # (Auto) 0.1 K/uL (0.0-0.1) Nucleated RBC Absolute Count (auto) 0.00 K/uL Sodium Level 139 mmol/L (137-145) Potassium Level 3.2 mmol/L (3.5-5.0) Chloride Level 103 mmol/L (98-107) Carbon Dioxide Level 29 mmol/L (22-31) Blood Urea Nitrogen 10 mg/dl (7-18) Creatinine 1.00 mg/dl (0.52-1.04) Glomerular Filtration Rate Calc 54.3 Random Glucose 102 mg/dl (75-110) Calcium Level 8.9 mg/dl (8.4-10.2) Total Bilirubin 0.2 mg/dl (0.2-1.3) Aspartate Amino Transf (AST/SGOT) 24 U/L (0-35) Alanine Aminotransferase (ALT/SGPT) 25 U/L (0-56) Alkaline Phosphatase 64 U/L (0-126) Troponin I < 0.012 ng/ml Total Protein 7.4 g/dl (6.3-8.2) Albumin 4.0 g/dl (3.5-5.0) Urine Color Colorless Urine Clarity Clear Urine pH 6.0 pH (4.8-9.5) Urine Specific [place] 1.003 Urine Protein Negative mg/dL (NEGATIVE) Urine Glucose (UA) Negative mg/dL (NEGATIVE) Urine Ketones Negative mg/dL (NEGATIVE) Urine Blood Small (NEGATIVE) Urine Nitrite Negative (NEGATIVE) Urine Bilirubin Negative (NEGATIVE) Urine Urobilinogen Negative mg/dL (0.2-1.9) Urine Leukocyte Esterase Negative (NEGATIVE) Urine RBC 1 /HPF (0-2/HPF) Urine WBC <1 /HPF (0-5/HPF) Urine Squamous Epithelial Cells None /LPF (</=FEW) Urine Bacteria Negative /HPF (NONE-FEW) Urine Mucus None /HPF (NONE-FEW) Chemistry Test 09/03/18 14:56 09/03/18 15:06 White Blood Count 4.6 k/uL (4.5-11.0) Red Blood Count 4.22 M/uL (4.17-5.56) Hemoglobin 13.1 g/dL (12.0-16.0) Hematocrit 38.6 % (34.0-47.0) Mean Corpuscular Volume 91.5 fL (80.0-96.0) Mean Corpuscular Hemoglobin 31.1 pg (26.0-33.0) Mean Corpuscular Hemoglobin Concent 33.9 g/dL (32.0-36.0) Red Cell Distribution Width 13.6 % (11.5-14.5) Platelet Count 192 K/uL (150-450) Mean Platelet Volume 9.2 fL (7.2-11.1) Neutrophils (%) (Auto) 63.7 % (39.4-72.5) Lymphocytes (%) (Auto) 20.9 % (17.6-49.6) Monocytes (%) (Auto) 10.4 % (4.1-12.4) Eosinophils (%) (Auto) 3.4 % (0.4-6.7) Basophils (%) (Auto) 1.6 % (0.3-1.4) Nucleated RBC Relative Count (auto) 0.0 /100WBC Neutrophils # (Auto) 3.0 K/uL (2.0-7.4) Lymphocytes # (Auto) 1.0 K/uL (1.3-3.6) Monocytes # (Auto) 0.5 K/uL (0.3-1.0) Eosinophils # (Auto) 0.2 K/uL (0.0-0.5) Basophils # (Auto) 0.1 K/uL (0.0-0.1) Nucleated RBC Absolute Count (auto) 0.00 K/uL Glomerular Filtration Rate Calc 54.3 Calcium Level 8.9 mg/dl (8.4-10.2) Total Bilirubin 0.2 mg/dl (0.2-1.3) Aspartate Amino Transf (AST/SGOT) 24 U/L (0-35) Alanine Aminotransferase (ALT/SGPT) 25 U/L (0-56) Alkaline Phosphatase 64 U/L (0-126) Troponin I < 0.012 ng/ml Total Protein 7.4 g/dl (6.3-8.2) Albumin 4.0 g/dl (3.5-5.0) Urine Color Colorless Urine Clarity Clear Urine pH 6.0 pH (4.8-9.5) Urine Specific [place] 1.003 Urine Protein Negative mg/dL (NEGATIVE) Urine Glucose (UA) Negative mg/dL (NEGATIVE) Urine Ketones Negative mg/dL (NEGATIVE) Urine Blood Small (NEGATIVE) Urine Nitrite Negative (NEGATIVE) Urine Bilirubin Negative (NEGATIVE) Urine Urobilinogen Negative mg/dL (0.2-1.9) Urine Leukocyte Esterase Negative (NEGATIVE) Urine RBC 1 /HPF (0-2/HPF) Urine WBC <1 /HPF (0-5/HPF) Urine Squamous Epithelial Cells None /LPF (</=FEW) Urine Bacteria Negative /HPF (NONE-FEW) Urine Mucus None /HPF (NONE-FEW) Urinalysis Test 09/03/18 15:06 Urine Color Colorless Urine Clarity Clear Urine pH 6.0 pH (4.8-9.5) Urine Specific [place] 1.003 Urine Protein Negative mg/dL (NEGATIVE) Urine Glucose (UA) Negative mg/dL (NEGATIVE) Urine Ketones Negative mg/dL (NEGATIVE) Urine Blood Small (NEGATIVE) Urine Nitrite Negative (NEGATIVE) Urine Bilirubin Negative (NEGATIVE) Urine Urobilinogen Negative mg/dL (0.2-1.9) Urine Leukocyte Esterase Negative (NEGATIVE) Urine RBC 1 /HPF (0-2/HPF) Urine WBC <1 /HPF (0-5/HPF) Urine Squamous Epithelial Cells None /LPF (</=FEW) Urine Bacteria Negative /HPF (NONE-FEW) Urine Mucus None /HPF (NONE-FEW) EKG/Imaging EKG Interpretation 12 lead EKG: Rhythm: normal sinus rhythm [place]: normal QRS: normal ST segments: normal Imaging COMPARISON: CT head without contrast performed earlier today. MR brain without and with contrast 04/02/2017 TECHNIQUE: Multi-planar, multi-sequence brain MRI was performed before and after IV gadolinium. CONTRAST: 8 mL IV enhance FINDINGS: Brain volume: Normal for patient age. Sagittal midline structures: Normal. Ventricles: Normal. Acute ischemic changes: None. Hemorrhage: None. Masses / edema: Stable 1 cm enhancing extra-axial mass overlying the an terior/superior right frontal lobe, partially calcified on the preceding CT and compatible with a small meningioma. Enhancement: No abnormal parenchymal enhancement. Oliveira-white: Negative. White matter lesions: Stable scattered foci of T2/FLAIR hyperintensity in the deep white matter bilaterally, compatible with chronic small vessel ischemic change. Vessels: Normal. Extra-axial: Small right frontal meningioma described above. Otherwise negative. Calvarium / scalp: Negative. Skull base: Negative. Visualized sinuses / orbits: Negative. Visualized upper neck: Negative. IMPRESSION: 1. No MR evidence of acute intracranial pathology. 2. Mild age-appropriate parenchymal volume loss with chronic small vessel ischemic change. 3. Stable small meningioma overlies the anterior/superior right frontal lobe. Report Dictated By: Eddie Rowley MD at 09/03/2018 6:44 PM Report E-Signed By: Eddie Rowley MD at 09/03/2018 6:52 PM Exam type: CHEST SINGLE AP History: chest pain Comparison: December 06, 2016. Findings: EKG leads project over the thorax. Mild hyperinflation lung camacho again noted. There is no evidence of focal infiltrates, pleural effusions or pulmonary edema. There is no evidence of a pneumothorax or pneumomediastinum. The cardiac silhouette appears normal in size. There has been postsurgical resection of the distal right clavicle. IMPRESSION: 1. Hyperinflation lung camacho although no evidence of acute pulmonary consolidation Report Dictated By: Melissa Gunn MD at 09/03/2018 3:39 PM Report E-Signed By: Melissa Gunn MD at 09/03/2018 3:41 PM EXAMINATION: CT head without IV contrast HISTORY: Seizure. TECHNIQUE: Axial CT images of the head were obtained from the vertex to the skull base without IV contrast, with coronal and sagittal 2D reconstructed images. One of the following dose optimization techniques was utilized in the p erformance of this exam: Automated exposure control; adjustment of the mA and/or kV according to the patient's size; or use of an iterative reconstruction technique. Specific details can be referenced in the facility's radiology CT exam operational policy. COMPARISON: 03/21/2017. FINDINGS: There is mild age-appropriate parenchymal volume loss, with stable mild patchy low attenuation in the deep white matter, compatible with chronic small vessel ischemic change. Intracranial vascular calcifications. Stable small partially calcified meningioma overlying the anterior/superior right frontal lobe, measuring [address] evidence of intracranial hemorrhage, new mass effect, or acute infarct. No midline shift or extra-axial fluid collections. Oliveira-white differentiation is maintained. The calvarium is intact. The partially visualized paranasal sinuses and mastoid air cells are unopacified. IMPRESSION: 1. No CT evidence of acute intracranial pathology. 2. Stable chronic age-related changes. 3. Stable small meningioma overlying the right frontal lobe. Report Dictated By: Eddie Rowley MD at 09/03/2018 4:25 PM Report E-Signed By: Eddie Rowley MD at 09/03/2018 4:30 PM ED Course/Re-evaluation ED Course Patient was admitted on exam room, history and physical were obtained. Differential diagnoses were considered. On examination lungs are clear, heart is regular, abdomen soft nontender. Patient at that time was acting normally. An IV was started, a CBC, CMP, EKG, troponin, chest x-ray were done. I was called back to the room with patient having a seizure. Patient was done by the time I arrived. The nurse states that she had gotten the patient up to go the bathroom. When they returned the patient slumped to the side and started having tonic- clonic movements. She is concerned that she may have had a seizure. Patient had no recollection of this. Patient did seem confused when normally she is very on top of things. She also had difficulty transitioning from the wheelchair to the bed in the bed to wheelchair. A CT scan of the head was done which was negative. The labs which were done were negative including a troponin. EKG was normal sinus rhythm and chest x-ray showed hyperinflation of the lungs but no other findings. I was concerned the patient may have had a stroke, I did a neuro exam which was normal. Patient had equal strength, although she did seem confused when historically she is not been. An MRI of the brain was done which was negative. I discussed the findings with the patient and her . I encouraged them to consider admission. I also states that she has been confused at home for quite some time and would like the patient to be admitted to the hospital. The patient also agreed to be admitted. I discussed the case with Dr. Muonz, hospitalist, who agreed to accept the patient for admission. I d iscussed this with the patient and her they verbalized understanding and agreement with plan. Decision to Disposition Date: Sep 03, 2018 Decision to Disposition Time: 19:38 Depart Departure Latest Vital Signs Vital Signs Date Time Temp Pulse Resp B/P (MAP) Pulse Ox O2 Delivery O2 Flow Rate FiO2 09/03/18 19:06 152/70 (97) 09/03/18 17:45 67 13 09/03/18 17:30 89 09/03/18 14:36 98.1 Room Air Impression: Primary Impression: Weakness Additional Impression: Confusion Condition: Condition Unchanged Disposition: Admitted from ER Referrals: SWATHI SIMS MD (PCP) Problem Qualifiers PIEDAD HUTCHISON Sep 03, 2018 14:41
[2018-09-03] MEDS ORDERED: ASPIRIN 81 MG CHEW PO ONE (14:50)
[2018-09-03] MEDS ORDERED: IBUP-136 PO (14:52)
[2018-09-03 15:08] LABS: PLATELET COUNT, AUTOMATED 192 K/uL (150-450)
[2018-09-03] MEDS ORDERED: LORazepam 2 MG/ML VIAL IVP ONE (15:10)
--- NOTE | 2018-09-03 15:45 | RADIOLOGY IMAGING REPORT ---
[place] [facility] [place] Temo Chavez : 1945 MR: [id number] V: [id number] EXAM DATE: ORDERING PHYSICIAN: PIEDAD HUTCHISON TECHNOLOGIST: Location: [facility] [place] Patient: Temo Chavez : 1945 Visit/Account:[id number] Date of Sevice: 09/03/2018 Exam type: CHEST SINGLE AP History: chest pain Comparison: December 06, 2016. Findings: EKG leads project over the thorax. Mild hyperinflation lung camacho again noted. There is no evidenc e of focal infiltrates, pleural effusions or pulmonary edema. There is no evidence of a pneumothorax or pneumomediastinum. The cardiac silhouette appears normal in size. There has been postsurgical r esection of the distal right clavicle. IMPRESSION: 1. Hyperinflation lung camacho although no evidence of acute pulmonary consolidation Report Dictated By: Melissa Gunn MD at 09/03/2018 3:39 PM Report E-Signed By: Melissa Gunn MD at 09/03/2018 3:41 PM [id number]
--- NOTE | 2018-09-03 16:03 | EKG ---
FACILITY: [facility] - [place], [place] PATIENT NAME: GABRIELA ROWLEY : [id number] MR: [id number] V: [id number] EXAM DATE: ORDERING PHYSICIAN: PIEDAD HUTCHISON TECHNOLOGIST: CESARIO Test Reason : CHEST PAIN Blood Pressure : / mmHG Vent. Rate : 085 BPM Atrial Rate : 085 BPM P-R Int : 138 ms QRS Dur : 086 ms QT Int : 390 ms P-R-T Axes : 083 -23 073 degrees QTc Int : 464 ms Normal sinus rhythm Right atrial enlargement Borderline ECG When compared with ECG of 21-APR-2018 16:50, No significant change was found Confirmed by Luis Winters ([id number]) on 09/03/2018 7:00:29 PM Referred By: PONCHO Confirmed By:Luis Ramos
--- NOTE | 2018-09-03 16:34 | RADIOLOGY IMAGING REPORT ---
FACILITY: [facility] PATIENT NAME: Temo Chavez : 1945 MR: [id number] V: [id number] EXAM DATE: ORDERING PHYSICIAN: PIEDAD HUTCHISON TECHNOLOGIST: Location: [facility] - [place] Patient: Temo Chavez : 1945 Visit/Account:[id number] Date of Sevice: 09/03/2018 EXAMINATION: CT head without IV contrast HISTORY: Seizure. TECHNIQUE: Axial CT images of the head were obtained from the vertex to the skull base without IV c ontrast, with coronal and sagittal 2D reconstructed images. One of the following dose optimization techniques was utilized in the performance of this exam: Autom ated exposure control; adjustment of the mA and/or kV according to the patient's size; or use of an i terative reconstruction technique. Specific details can be referenced in the facility's radiology C T exam operational policy. COMPARISON: 03/21/2017. FINDINGS: There is mild age-appropriate parenchymal volume loss, with stable mild patchy low attenuation in the deep white matter, compatible with chronic small vessel ischemic change. Intracranial vascular calci fications. Stable small partially calcified meningioma overlying the anterior/superior right frontal lobe, measu ring [address] evidence of intracranial hemorrhage, new mass effect, or acute infarct. No midline shift or ext ra-axial fluid collections. Oliveira-white differentiation is maintained. The calvarium is intact. The partially visualized paranasal sinuses and mastoid air cells are unopaci fied. IMPRESSION: 1. No CT evidence of acute intracranial pathology. 2. Stable chronic age-related changes. 3. Stable small meningioma overlying the right frontal lobe. Report Dictated By: Eddie Chavez MD at 09/03/2018 4:25 PM Report E-Signed By: Eddie Chavez MD at 09/03/2018 4:30 PM WSN:[id number]
[2018-09-03] MEDS ORDERED: GADOBENATE 529MG/1ML 10ML VIAL IVP ONE (18:13)
--- NOTE | 2018-09-03 18:56 | RADIOLOGY IMAGING REPORT ---
FACILITY: [facility] - [place] PATIENT NAME: Temo Chavez : 1945 MR: [id number] V: [id number] EXAM DATE: ORDERING PHYSICIAN: PIEDAD HUTCHISON TECHNOLOGIST: Location: [facility] [place] Patient: Temo Chavez : 1945 Visit/Account:[id number] Date of Sevice: 09/03/2018 EXAMINATION: MR Brain without and with IV contrast HISTORY: Syncope. Confusion. COMPARISON: CT head without contrast performed earlier today. MR brain without and with contrast 04/02/2017 TECHNIQUE: Multi-planar, multi-sequence brain MRI was performed before and after IV gadolinium. CONTRAST: 8 mL IV enhance FINDINGS: Brain volume: Normal for patient age. Sagittal midline structures: Normal. Ventricles: Normal. Acute ischemic changes: None. Hemorrhage: None. Masses / edema: Stable 1 cm enhancing extra-axial mass overlying the anterior/superior right frontal lobe, partially calcified on the preceding CT and compatible with a small meningioma. Enhancement: No abnormal parenchymal enhancement. Oliveira-white: Negative. White matter lesions: Stable scattered foci of T2/FLAIR hyperintensity in the deep white matter bila terally, compatible with chronic small vessel ischemic change. Vessels: Normal. Extra-axial: Small right frontal meningioma described above. Otherwise negative. Calvarium / scalp: Negative. Skull base: Negative. Visualized sinuses / orbits: Negative. Visualized upper neck: Negative. IMPRESSION: 1. No MR evidence of acute intracranial pathology. 2. Mild age-appropriate parenchymal volume loss with chronic small vessel ischemic change. 3. Stable small meningioma overlies the anterior/superior right frontal lobe. Report Dictated By: Eddie Chavez MD at 09/03/2018 6:44 PM Report E-Signed By: Eddie Chavez MD at 09/03/2018 6:52 PM WSN:[id number]
[2018-09-03 20:35] VITALS: BP 140/74
[2018-09-03] MEDS ORDERED: FLUSH 10 ML SYR IVP PRN (21:45)
[2018-09-03] MEDS ORDERED: ONDANSETRON 4 MG/2 ML VIAL IVP PRN (21:45)
[2018-09-03] MEDS ORDERED: ACETAMINOPHEN 325 MG TAB PO PRN (21:45)
[2018-09-03] MEDS ORDERED: INFLUENZA VIRUS VAC 0.5ML SYR IM ONLY ONE (21:45)
[2018-09-03] MEDS: NS(*) 0.9% 1000 ML BAG 1,000 ML IV PRN (22:23)
[2018-09-03 23:38] VITALS: BP 137/71
[2018-09-04] VITALS (7 sets, daily range): BP systolic 118–154; BP diastolic 67–123; Ht 154.9 cm; Wt 39.9 kg
--- NOTE | 2018-09-04 00:32 | History & Physical ---
History of Present Illness Chief Complaint syncope History of Present Illness 72F with PMHx significant for pre-syncope, dementia, Sjogren syndrome, chronic abdominal pain, presented with syncopal episode today while experiencing abdominal pain. Had episode of abdominal pain, then reported chest pain to and tried to have BM. After had renewed abdominal pain and reportedly passed out briefly. In ER again had episode of decreased consciousness. reports she has had episodes of presyncope, orthostasis, unsteadiness in past. Notes worsening memory since they moved 5 months ago. MMSE found on review of records showing MOCA score of 18/30 in 2017. History Problems: (1) Sjogrens syndrome Status: Chronic (2) Diastolic dysfunction Onset Date: 06/24/2015 Status: Chronic (3) Osteopenia Status: Chronic (4) Dementia Status: Chronic (5) Syncope Status: Acute Home Meds Active Scripts Albuterol Sulfate 90 Mcg/Act (PROAIR HFA 90 MCG/ACT) 8.5 Gm Hfa.aer.ad, 2 PUFF IH TID PRN for to help breathing, #1 INHALER 1 Refill Prov:SWATHI SIMS MD 08/25/18 Budesonide (ENTOCORT EC) 3 Mg Capdr...er, 3 CAP PO QDAY, #90 CAP 3 Refills Prov:DUONG JEFFERS MD 04/25/18 Hydroxyzine Hcl (HYDROXYZINE HCL) 10 Mg Tablet, 1-2 TAB PO TID PRN for itching, #60 TAB 6 Refills Prov:SWATHI SIMS MD 04/08/18 Montelukast Sodium (SINGULAIR) 10 Mg Tablet, 1 TAB PO QDAY, #90 TAB 6 Refills Prov:SWATHI SIMS MD 11/27/17 Levothyroxine Sodium (LEVOTHYROXINE SODIUM) 75 Mcg Tablet, 75 MCG PO QDAY, #90 TAB 3 Refills Prov:SWATHI SIMS MD 11/27/17 Prednisone 5 Mg Tab (PREDNISONE 5 MG TAB) 5 Mg Tablet, 5 MG PO QDAY, #90 TAB 2 Refills Prov:SWATIH SIMS MD 11/27/17 Pantoprazole Sodium (PANTOPRAZOLE SODIUM) 40 Mg Tablet.dr, 40 MG PO QDAY, #90 TAB.SR 3 Refills Prov:SWATHI SIMS MD 11/27/17 Hydroxychloroquine Sulfate (HYDROXYCHLOROQUINE SULFATE) 200 Mg Tablet, 1 TAB PO QDAY, #90 TAB 4 Refills Prov:SWATHI SIMS MD 11/27/17 Fluticasone Prop 50 Mcg Ns (FLONASE 50 MCG NS) 16 Gm [place].susp, 2 SPRAYS NA QDAY for 30 Days, #1 BOT 3 Refills Prov:JAY ROWLEY JR, MD 10/31/17 Dextran 70/Hypromellose (ARTIFICIAL TEARS) 1 Each Droperette, 1 EACH OP QID, #15 ML Prov:SWATHI SIMS MD 07/04/17 Reported Medications Ibuprofen (IBUPROFEN) 200 Mg Capsule, 1 CAP PO Q6H PRN for pain, CAPSULE 09/03/18 Cholecalciferol (Vitamin D3) (D-2000) 2,000 Unit Capsule, 2000 UNIT PO QDAY, CAPSULE 11/27/17 Allergies: Coded Allergies: Sulfa (Sulfonamide Antibiotics) (Verified Allergy, Severe, VISUAL DISTURBANCES, 09/03/18) clavulanic acid (Verified Allergy, Severe, CHOLITIS, 09/03/18) metoclopramide (Verified Allergy, Severe, PSYCHOTIC EFFECTS, 09/03/18) codeine (Verified Allergy, Intermediate, NAUSEA, 09/03/18) meperidine (Verified Allergy, Intermediate, NAUSEA, HIVES, 09/03/18) morphine (Verified Allergy, Intermediate, NAUSEA, HIVES, 09/03/18) lactose (Verified Allergy, Mild, GI DISTRESS, 09/03/18) Niacin Preparations (Verified Allergy, Unknown, UNKNOWN, 09/03/18) cephalexin (Verified Allergy, Unknown, UNKNOWN, 09/03/18) erythromycin base (Verified Allergy, Unknown, 09/03/18) furosemide (Verified Allergy, Unknown, 09/03/18) levofloxacin (Verified Adverse Reaction, Mild, 09/03/18) tendon inflammation Patient History: Cancer of mouth BROTHER OR SISTER (Smokes, Healthy and several half sisters and brothers. ) Hx Smoking: No Smoking Status: Never Smoker Exposure to Second Hand Smoke?: Yes Caffeine Intake: Soda Caffeine/Cups Per Day: 1 CAN DAILY Hx Alcohol Use: No Hx Substance Use Disorder: No Review of Systems All Systems Reviewed/Normal: Yes, Except as Noted Cardiovascular: Other (syncope) Exam Vital Signs Vital Signs Date Time Temp Pulse Resp B/P (MAP) Pulse Ox O2 Delivery O2 Flow Rate FiO2 09/03/18 23:38 98.3 77 16 137/71 (93) 97 Room Air General Appearance: Awake, No Acute Distress, Afebrile Neuro: No Gross deficits Eyes: PERRLA ENT: Normal Neck: No Masses Cardiovascular: Normal Rhythm & Peripheral Pulses Respiratory: No Respiratory Distress GI: Abd Soft and Non-Tender Extremities: Soft and Non Tender, Warm, Pulses, Perfused; No Edema Integumentary: Skin Intact without Lesion / Mass Medical Decision Making Data Points Result Diagram: 09/03/18 1456 09/03/18 1456 EKG / Imaging EKG Interpretation NSR Monitor Interpretation: Normal Sinus Rhythm Imaging MRI brain IMPRESSION: 1. No MR evidence of acute intracranial pathology. 2. Mild age-appropriate parenchymal volume loss with chronic small vessel ischemic change. 3. Stable small meningioma overlies the anterior/superior right frontal lobe. Assessment and Plan Problems: (1) Syncope Status: Acute Assessment & Plan: Previous presyncope but deny any previous syncopal episode. Suspect vasovagal due to reported abdominal pain. MRI and CT head negative for acute pathology. Had Lexiscan 4 months ago, unlikely ischemic heart disease. Will monitor on telemetry for arrhythmia, ECHO to evaluate for aortic stenosis (no murmur), carotid mechanical engineering draftsperson pending. If negative telemetry could discharge with Holter monitor arranged. (2) Systemic lupus erythematosus Assessment & Plan: Working diagnosis, CRISTIANA is elevated. On chronic steroid. (3) Dementia Status: Chronic Assessment & Plan: MOCA in 2017, consult speech for new MOCA. (4) Sjogrens syndrome Status: Chronic Venous Thromboembolism Antithrombotics Is Pt On Any Antithrombotics?: Yes Exam Sepsis Risk: No Definite Risk SPEARS ZAFAR LEBLANC DO Sep 04, 2018 00:32
[2018-09-04] MEDS ORDERED: ENOXAPARIN 40 MG/0.4ML SYR SC SCH (09:00)
[2018-09-04] MEDS: NS(*) 0.9% 1000 ML BAG 1,000 ML IV PRN (09:53)
[2018-09-04] MEDS: ENOXAPARIN 30 MG/0.3 ML SYR SC SCH (11:47)
[2018-09-04] MEDS ORDERED: FLUOD OU (13:42)
--- NOTE | 2018-09-04 13:54 | SLP EVALUATION SUMMARY REPORT ---
COGNITIVE LINGUISTIC AND CLINICAL DYSPHAGIA certified coding specialist: Dariana Plummer MS, CCC-SEED ANALYST Type of Assessment: Bedside dysphagia evaluation; Cognitive linguistic assessment Patient: Temo Chavez : [birth year], 72yo Evaluation Date: 09/04/2018 BACKGROUND The patient is a 72year old female w/ pmhx significant for pre-syncope, dementia, and Sjogrens syndrome. She was brought in by her on 09/03/18 with syncopal episode while experiencing abdominal pain. In the ER, she had an episode of decreased consciousness and was admitted. An ST assessment was ordered to analyze cognitive linguistic status due to suspected decline in cognition with advancing dementia diagnosis, and to evaluate swallow status due to reports of dysphagia. Primary Medical Diagnosis: syncope Pain Scale (0-10): patient w/ no reports of pain. LOC / Participation: alert, cooperative Follows Instructions: single level only, frequently required repetition of task instructions Orientation: A&O to self, caregivers Functional Communication Deficits impact swallow function/safety, or response to therapy: Yes. Pt with severe memory deficits, difficulty following complex commands, decreased orientation to current situation. Will benefit from intermittent supervision to monitor diet tolerance and provide reminders for compensatory swallow strategies. DYSPHAGIA ASSESSMENT Sialorrhea: No Xerostomia: Yes Supplemental Oxygen Use: No COPD Dx: No Pain with Swallow: Denies Pt was seen at the bedside for clinical swallowing assessment with spouse present throughout entirety of encounter. Pt was alert and cooperative, but confused re: current situation with intermittent requests to leave hospital. Oromotor exam was unremarkable with adequate strength, speed, coordination, and ROM of all oral musculature. Administered PO trials of thin liquids via cup and straw, pureed solids, soft solids, and regular solids. Oral phase was WNL. Pharyngeally, the pt tolerated all trials with no overt or subtle s/sx of aspiration. However, visible effort was observed during swallow execution characterized by facial grimace and muscle strain. Pt reported sensation of material sticking in throat with trials of puree, soft solids, and hard solids. Sticking sensation was successfully alleviated with use of double swallow, liquid wash, and/or instruction to perform effortful swallow. Pt and spouse report long-standing history of globus sensation with increased effort to clear material from pharynx. Suspect symptoms of Sjogrens syndrome are negatively impacting swallow function. Unable to directly observe pt w/ medication administration. However, pt and spouse do not report any difficulties. Recommend medications as tolerated. At baseline, the pt consumes whole medications with thin liquids. STEFANI: Level 5: Mild dysphagia. Intermittent supervision with meals. Provide extra moisture with dry foods. Aspiration Risk: Mildly increased. Suspected reduction in pharyngeal clearance with elevated risk for post-swallow aspiration of residual material. Pt is also at increased risk for aspiration of solids d/t medical diagnosis. RECOMMENDATIONS 1. Diet: regular solids, thin liquids, add extra moisture to dry foods. 2. Medications: whole, with thin liquids 3. Compensatory Techniques: ensure upright positioning during PO intake, small bites/sips, one bite/sip at a time, alternate solids and liquids, swallow twice per bite, swallow with effort. COGNITIVE LINGUISTIC ASSESSMENT Pt also seen at the bedside for cognitive linguistic analysis using the Antoine Cognitive Assessment, (Version 7.3) paired with informal evaluation procedures. The pt obtained a score of 8/30, exhibiting severe, widespread deficits in the areas of attention, immediate recall, short-term recall, executive function, language, temporal orientation, and visuospatial skills. Of note, the pt obtained an 18/30 in 2017. Relative areas of strength were observed during tasks requiring object naming and mental abstraction. Long-term memory also appears to be a relative area of strength. The pt required multiple repetitions of task instructions and demonstrated non-linear, disorganized thought patterns during encounter. Language was often vague with frequent word finding difficulties. The pt appeared aware of cognitive deficits with attempts to mask impairments via humor, conversational redirection, and negation of task relevance. Although the pt was oriented to her current location when directly questioned, she appeared disoriented to the current situation with attempt to exit her bed and go home upon completion of evaluation tasks. Spouse reports he is available to provide 24/7 supervision and assists with all IADLs. He also supports the pt with majority of ADLs, and they receive assistance with cleaning 1x/wk. Spouse attempts to support the pt with medication management; however, he states that the pt is resistant to utilizing a pill box system and insists on administering her own pills. She often forgets what whether or not a dosage was already taken. Speech Therapy Need ST will continue monitor diet tolerance, provide diet upgrade recommendations, and instruct patient/caregiver re: safe swallow strategies to minimize risk for aspiration. ST will provide caregiver education re: external strategies and environmental modifications to support advancing dementia. It is recommended that the pt receive HH ST services at discharge to continue addressing pharyngeal dysphagia and to provide support for advancing dementia diagnosis. PLAN OF CARE Goals 1. Pt/caregivers will receive education regarding safe swallow strategies/precautions, diet modification recommendations, and compensatory techniques, and will provide verbal/visual demonstration of comprehension. 2. Patient will safely tolerate least restrictive diet textures at PLOF (regular solids, thin liquids) during 90% of attempts with appropriate support via trained caregivers for execution of compensatory strategies (e.g., double swallow, effortful swallow, etc). 3. Caregivers will demonstrate comprehension of education provided re: communication strategies and environmental arrangement techniques to support advancing dementia diagnosis when provided with min SEED ANALYST assist. Rehabilitation Prognosis: Good. Pt is cooperative. Strong spousal support. Thank you for this referral. Dariana Plummer M.S., [facility]ED ANALYST Speech Therapist [*] SERGIO
--- NOTE | 2018-09-04 14:12 | RADIOLOGY IMAGING REPORT ---
FACILITY: [facility] - [place] PATIENT NAME: Temo Chavez : 1945 MR: [id number] V: [id number] EXAM DATE: ORDERING PHYSICIAN: ZAFAR LEBLANC TECHNOLOGIST: Location: [facility] [place] Patient: Temo Chavez : 1945 Visit/Account:[id number] Date of Sevice: 09/03/2018 CAROTID HISTORY: syncope COMPARISON: September 11, 2011 FINDINGS: Grayscale, duplex and color Doppler interrogation of the extracranial carotid and vertebral arteries was performed bilateral. On the right, peak systolic velocities within the common and internal carotid arteries are 100 and 96 cm/sec respectively. There is mild intimal thickening in the right common carotid artery. Antegrad e flow within the common, internal and external carotid arteries as well as vertebral artery. ICA/CCA ratio 1. On the left, peak systolic velocities within the common and internal carotid arteries are 105 and 141 cm/sec respectively. There is mild intimal thickening in the left common carotid artery. Antegrade flow within the common, internal and external carotid arteries as well as vertebral artery. ICA/CCA ratio 1.3. IMPRESSION: There is mild intimal thickening in the common carotid arteries bilaterally. Area there is a mildly elevated peak systolic velocity in the distal left ICA measuring 141 cm/s which is increased when com pared the prior study. No significant stenoses identified Velocity criteria are extrapolated from diameter data as defined by the Society of Radiologists in [facility] Consensus Conference Radiology 2003; 229;[id number] Report Dictated By: Melissa Gunn MD at 09/04/2018 2:02 PM Report E-Signed By: Melissa Gunn MD at 09/04/2018 2:09 PM WSN:[id number]
[2018-09-04] MEDS ORDERED: HYDR10TA3 PO (14:13)
[2018-09-04] MEDS ORDERED: DEXT1DRO15 OU (14:13)
[2018-09-04] MEDS ORDERED: POLY15DR5 OU (14:13)
[2018-09-04] MEDS ORDERED: ALBU8.5H IH (14:13)
[2018-09-04] MEDS ORDERED: HYPROMELLOSE 0.4% LUB 15ML BTL OU PRN (14:35)
[2018-09-04] MEDS ORDERED: ALBUTEROL 2.5 MG/3 ML NEB NEB PRN (14:35)
--- NOTE | 2018-09-04 14:54 | Hospitalist Progress Note ---
Subjective Progress Notes Subjective The patient had an event this morning with staff where she was transiently very confused. The nurse also noted that the patient was bradycardic on the monitor. She reported some bilateral shoulder pain, but said it was chronic. No further events. Physical Exam Vital Signs Date Time Temp Pulse Resp B/P (MAP) Pulse Ox O2 Delivery O2 Flow Rate FiO2 09/04/18 11:44 98.1 66 8 134/118 (123) 95 Room Air 09/03/18 23:09 2.0 Intake and Output 09/04/18 06:58 # Voids 5 # Bowel Movements 1 General Appearance: Alert, Awake, No Acute Distress Cardiovascular: Regular Rate and Rhythm Respiratory: Clear to Auscultation Extremities: No Edema Result Diagram: 09/03/18 1456 09/04/18 0615 Monitor Interpretation: Normal Sinus Rhythm Assessment and Plan Problems: (1) Syncope Status: Acute Assessment & Plan: She presented with chest pain, SOB and then a syncopal event while on the toilet. Then, in the ER, she had a syncopal event after going to the bathroom while in the wheelchair going back to her room. Previously, she has had presyncope but denies any syncopal episodes. Likely, she had increased vagal tone due to reported abdominal pain. MRI and CT head negative for acute pathology. Had a negative Lexiscan 4 months ago, so unlikely ischemic heart disease. Echo and carotid studies pending. This morning, she had a witnessed episode of increased confusion that correlated with a sinus bradycardia event that led to a 3.6 second pause. The whole event was about a minute. I discussed with the patient and about the possible need for a pacemaker. She would like to be more conservative. I spoke with Cardiology from [facility]. They felt that she didn't need immediate pacemaker placement based on one event. Manjit gordon watch tonight on telemetry and if she has no further events, then could have the Cardiology clinic tech's place a patch that will follow electrical activity for 2 weeks. (2) Symptomatic bradycardia Status: Acute Assessment & Plan: See above. (3) Systemic lupus erythematosus Assessment & Plan: Working diagnosis, CRISTIANA is elevated. On chronic prednisone and Plaquenil. (4) Dementia Status: Chronic Assessment & Plan: MOCA in 2017, consult speech for new MOCA. (5) Sjogrens syndrome Status: Chronic Exam Sepsis Risk: No Definite Risk FIDEL UP MD Sep 04, 2018 14:54
[2018-09-04] MEDS: predniSONE 5 MG TAB PO SCH (16:07)
[2018-09-04] MEDS: FLUOROMETHOLONE 0.1% OP SUSP OU SCH (21:13)
[2018-09-05 02:38] VITALS: BP 174/85
[2018-09-05] MEDS ORDERED: LEVOTHYROXINE SOD 0.075 MG TAB PO SCH (06:00)
[2018-09-05 07:21] VITALS: BP 155/89
[2018-09-05] MEDS ORDERED: HYDROXYCHLOROQUINE 200 MG TAB PO SCH (09:00)
[2018-09-05] MEDS ORDERED: MONTELUKAST SODIUM 10 MG TAB PO SCH (09:00)
[2018-09-05] MEDS ORDERED: PANTOPRAZOLE SOD 40 MG TABEC PO SCH (09:00)
[2018-09-05] MEDS: ENOXAPARIN 30 MG/0.3 ML SYR SC SCH (09:29)
[2018-09-05] MEDS: predniSONE 5 MG TAB PO SCH (09:30)
[2018-09-05] MEDS: FLUOROMETHOLONE 0.1% OP SUSP OU SCH (09:30)
--- NOTE | 2018-09-05 09:32 | Hospitalist Depart ---
Discharge Summary Reason for Hosp/Final Diag: (1) Syncope Status: Acute Hospital Course & Plan: She presented with chest pain, SOB and then a syncopal event while on the toilet. Then, in the ER, she had a syncopal event after going to the bathroom while in the wheelchair going back to her room. Previously, she has had presyncope but denies any syncopal episodes. Likely, she had increased vagal tone due to reported abdominal pain. MRI and CT head were both negative for acute pathology. An echocardiogram and carotid ultrasound were also unrevealing. She did have a witnessed episode of increased confusion that correlated with a sinus bradycardia event that led to a 3.6 second pause. She will have a cardiac recorder placed and follow up in the cardiology clinic. (2) Symptomatic bradycardia Status: Acute Hospital Course & Plan: See above. (3) Systemic lupus erythematosus Hospital Course & Plan: She is on chronic prednisone and Plaquenil. (4) Dementia Status: Chronic Hospital Course & Plan: MOCA in 2017, consult speech for new MOCA. (5) Sjogrens syndrome Status: Chronic Departure Latest Vital Signs Vital Signs 09/03/18 09/05/18 23:09 07:21 Temp 97.9 Pulse 82 Resp 16 B/P (MAP) 155/89 (111) Pulse Ox 95 O2 Delivery Room Air O2 Flow Rate 2.0 Weight (Pounds): 88 Weight (Ounces): 7.0 Result Diagram: 09/03/18 1456 09/04/18 0615 Condition: Improved Discharge: Home, Home Health PT/OT Follow Up For: PT For Strengthening Home Health RN Follow Up For: Medication Management, Nursing Assessment Discharge Instructions Home Meds Active Scripts Montelukast Sodium (SINGULAIR) 10 Mg Tablet, 1 TAB PO QDAY, #90 TAB 6 Refills Prov:SWATHI SIMS MD 11/27/17 Levothyroxine Sodium (LEVOTHYROXINE SODIUM) 75 Mcg Tablet, 75 MCG PO QDAY, #90 TAB 3 Refills Prov:SWATHI SIMS MD 11/27/17 Prednisone 5 Mg Tab (PREDNISONE 5 MG TAB) 5 Mg Tablet, 5 MG PO QDAY, #90 TAB 2 Refills Prov:SWATHI SIMS MD 11/27/17 Pantoprazole Sodium (PANTOPRAZOLE SODIUM) 40 Mg Tablet.dr, 40 MG PO QDAY, #90 TAB.SR 3 Refills Prov:SWATHI SIMS MD 11/27/17 Hydroxychloroquine Sulfate (HYDROXYCHLOROQUINE SULFATE) 200 Mg Tablet, 1 TAB PO QDAY, #90 TAB 4 Refills Prov:SWATHI SIMS MD 11/27/17 Fluticasone Prop 50 Mcg Ns (FLONASE 50 MCG NS) 16 Gm [place].susp, 2 SPRAYS NA QDAY for 30 Days, #1 BOT 3 Refills Prov:JAY ROWLEY JR, MD 10/31/17 Reported Medications Hydroxyzine Hcl (HYDROXYZINE HCL) 10 Mg Tablet, 2 TAB PO TID 09/04/18 Dextran 70/Hypromellose (ARTIFICIAL TEARS) 1 Each Droperette, 1 DROP OU PRN 09/04/18 Albuterol Sulfate 90 Mcg/Act (PROAIR HFA 90 MCG/ACT) 8.5 Gm Hfa.aer.ad, 2 PUFF IH QDAY, INHALER 09/04/18 Fluorometholone (FLUOROMETHOLONE) 5 Ml Drops.susp, 1 DROP OU BID 09/04/18 Ibuprofen (IBUPROFEN) 200 Mg Capsule, 1 CAP PO Q6H PRN for pain, CAPSULE 09/03/18 Cholecalciferol (Vitamin D3) (D-2000) 2,000 Unit Capsule, 2000 UNIT PO QDAY, CAPSULE 11/27/17 Discontinued Reported Medications Polyvinyl Alcohol (ARTIFICIAL TEARS) 15 Ml Drops, 15 ML OU PRN 09/04/18 Discontinued Scripts Albuterol Sulfate 90 Mcg/Act (PROAIR HFA 90 MCG/ACT) 8.5 Gm Hfa.aer.ad, 2 PUFF IH TID PRN for to help breathing, #1 INHALER 1 Refill Prov:SWATHI SIMS MD 08/25/18 Budesonide (ENTOCORT EC) 3 Mg Capdr...er, 3 CAP PO QDAY, #90 CAP 3 Refills Prov:DUONG JEFFERS MD 04/25/18 Hydroxyzine Hcl (HYDROXYZINE HCL) 10 Mg Tablet, 1-2 TAB PO TID PRN for itching, #60 TAB 6 Refills Prov:SWATHI SIMS MD 04/08/18 Dextran 70/Hypromellose (ARTIFICIAL TEARS) 1 Each Droperette, 1 EACH OP QID, #15 ML Prov:SWATHI SIMS MD 07/04/17 Diet: Regular Activity: As Tolerated Copies to: SWATHI SIMS MD ; Venous Thromboembolism Antithrombotics Is Pt On Any Antithrombotics?: Yes [id number] Certification Face to Face Home Health Certification Institutional Provider conducted the [id number] encounter. Electronic Undersigning Physician Certifies Home Health. I certify that the patient has been under my care and that I had a [id number] encounter that meets the physician [id number] encounter requirements with this patient. This patient is home-bound due to safety issues and continues to require assistance with ADL's. I certify that based on my findings, that Nursing, Aides and the following Home Health services are medically necessary: Medical Necessity: Nursing, Rehab Date Face to Face Conducted: Sep 05, 2018 DUONG VILLAGOMZE DO Sep 05, 2018 09:32
--- NOTE | 2018-09-05 10:00 | Medical Nutrition Therapy ---
Nutrition Anthropometrics Height (Inches): 61.00 Height (Calculated Centimeters: 154.617260 Weight (Pounds): 88 Weight (Calculated Kilograms): 39.916 BMI: 16.6 Nazario Nutrition Score: Probably Inadequate Nazario Nutrition Risk Score: 20 Dietary Referral Nutrition Risk Factors: Significantly Underwt., Diff. Swallowing, Special Diet Nutrition Risk Comment: LACTOSE INTOLERANT Physical Findings Physical Appearance: Underweight BMI<19 Skin Appearance Skin Appearance: Edema Edema Location Modifier: Edema Location: Type of Edema: Degree of Edema: Gastrointestinal Symptoms GI Symtoms: Tube Present: Bowel Sounds: Recent Bowel Pattern: Stool Characteristics: Nutritional Diagnosis Nutritional Risk Acuity 2: Swallowing Problem Nutritional Risk Acuity 3: %IBW 81-89% Past Medical History: Hx of glaucoma, vetigo, difficulty swallowing, headaches, asthma, partial colectomy, osteoarthritis, hypothyroidism, basal cell carcinoma, shingles, Sjorgrens Syndrome. Nutritional Acuity: 2-Moderate Nutrition Diagnosis: Under-weight Nutrition Etiology: Physiological Causes Nutrition Problem/Etiology/Sym: Underweight r/t physiological causes AEB BMI of 16.6, 84% IDW Energy Requirement: 1100 (M-SJ * 1.3) Protein Requirement: 50 (1.3g/kg) Fluid Requirement: 1200 (30ml/kg) Diet Type: Diet as Tolerated UMM/REG Nutrition Intervention: Cont diet as ordered, Encourage intake, Between meal supplement Additional Diet Restrictions: LACTOSE INTOLERANT Diet Comment To RSA: PROVIDE NUTR SUPPLEMENT, extra moist dry foods for swallowing Nutrition Monitoring & Eval Nutrition Goals: Drink > 1200 cc/day, Eat 75-100% Meal RD Patient Assessment Time: [address] Assessment Type: RD Assessment Patient Nutrition Acuity: 2-Moderate Follow Up Date: Sep 08, 2018 Nutritional Comment: 09/04 Pt admitted for syncope showing symptoms of confusion and weakness. Hx of glaucoma, vetigo, difficulty swallowing, headaches, asthma, partial colectomy, osteoarthritis, hypothyroidism, basal cell carcinoma, shingles, Sjorgrens Syndrome, IBS. Pt on UMM. Pt is underweight with BMI of 16.6 and 84% IBW. Muscle wasting prevalent in temples, clavicles, scapula, and interosseous per Nutrition-Focused Physical Assessment.Will provide nutrition supplement. Discussed TF as a means of ensuring pt recieving adequate kcal and protein for wt maintence and/ or wt gain. Pt stated her and her will think about it. Pt has difficulty swallowing and is lactose intolerant. Per ST eval, pt is fine with regular solids, thin liquids, but needs extra moist dry foods (noted to RSAs). Pt admitted with low K+, but back WNL today. Pt ate 100% of soft food for lunch. Will follow labs and intake. EDMOND NEWBY Sep 04, 2018 08:15
[2018-09-05 11:34] VITALS: BP 134/83
== END 2018-09-05 12:10 | disposition home health service (06) ==
LOC: ER 14:58 → INTOOBSV 20:01 → MED 20:01
PROVIDERS: ADMIT Internal Medicine; ATTEND Internal Medicine
DX: R00.1 Bradycardia, unspecified (principal); M32.9 Systemic lupus erythematosus, unspecified; M35.00 Sjogren syndrome, unspecified; R53.1 Weakness; R41.0 Disorientation, unspecified
CPT/HCPCS: 36415; 70450; 70553; 71045; 81001; 84484; 85025; 92523; 92610; 93005; 93306; 93880; 96374; 97162; 97165; 99285; A9270; A9577; G0378; J1650; J2060; J7030; J7512; 82040; 82247; 82310; 82374; 82435; 82565; 82947; 84075; 84132; 84155; 84295; 84450; 84460; 84520; 96372

== ENCOUNTER → 2018-09-16 | Outpatient (CLI) | payer MEDICARE ==
[2018-09-04 07:56] VITALS: BMI 16.6
[~2018-09-16] MED LIST changes: +DEXT1DRO15 OU; +FLUOD OU; +IBUP-136 PO; +POLY15DR5 OU
== END ==
LOC: LAB 13:19
PROVIDERS: ATTEND Internal Medicine
DX: E03.9 Hypothyroidism, unspecified (principal)
CPT/HCPCS: 36415; 84439; 84443

== ENCOUNTER → 2018-09-19 | Outpatient (CLI) | payer MEDICARE ==
[2018-09-04 07:56] VITALS: BMI 16.6
== END ==
LOC: RESP 07:50
PROVIDERS: ATTEND Internal Medicine
DX: F03.90 Unspecified dementia, unspecified severity, without behavioral disturbance, psychotic disturbance, mood disturbance, and anxiety (principal); R55 Syncope and collapse; I45.5 Other specified heart block
CPT/HCPCS: 95819

== ENCOUNTER 2018-11-12 15:22 | Observation (INO) | payer MEDICARE ==
[~2018-11-12] VITALS: Ht 157.5 cm; Wt 44.9 kg
[~2018-11-12 15:22] MED LIST changes: -ASPI81TA94 PO; -CYA1000 PO; -PROM12.556 PO
--- NOTE | 2018-11-12 15:35 | ER Report ---
History and Physical Time Seen By MD: 15:35 Hx. of Stated Complaint: flu like symptoms since this morning. nausea and vomitting unable to keep anything down HPI/ROS CHIEF COMPLAINT: Nausea, vomiting and diarrhea HISTORY OF PRESENT ILLNESS: 73-year-old female patient presents to the emergency room with complaint of nausea, vomiting and diarrhea. Patient states that she has not been feeling well all day today. She states she started not feeling well last night, having some fevers and chills. They stated they never did check her temperature, however she was complaining of being hot and then cold. This morning patient's not been able to keep anything down, she's been having bouts of nausea and vomiting. Patient states that she has not taken any medication for this. She states that they felt that she needed to be evaluated so she is not been able to keep anything down. Patient states that yesterday she had been feeling fine. REVIEW OF SYSTEMS: Respiratory: No cough, no dyspnea. Cardiovascular: No chest pain, no palpitations. Gastrointestinal: As noted above Musculoskeletal: No back pain. Allergies: Coded Allergies: Sulfa (Sulfonamide Antibiotics) (Verified Allergy, Severe, VISUAL DISTURBANCES, 09/03/18) clavulanic acid (Verified Allergy, Severe, CHOLITIS, 09/03/18) metoclopramide (Verified Allergy, Severe, PSYCHOTIC EFFECTS, 09/03/18) codeine (Verified Allergy, Intermediate, NAUSEA, 09/03/18) meperidine (Verified Allergy, Intermediate, NAUSEA, HIVES, 09/03/18) morphine (Verified Allergy, Intermediate, NAUSEA, HIVES, 09/03/18) lactose (Verified Allergy, Mild, GI DISTRESS, 09/03/18) Niacin Preparations (Verified Allergy, Unknown, UNKNOWN, 09/03/18) cephalexin (Verified Allergy, Unknown, UNKNOWN, 09/03/18) erythromycin base (Verified Allergy, Unknown, 09/03/18) furosemide (Verified Allergy, Unknown, 09/03/18) levofloxacin (Verified Adverse Reaction, Mild, 09/03/18) tendon inflammation Home Meds Active Scripts Mirtazapine (MIRTAZAPINE) 7.5 Mg Tablet, 7.5 MG PO QHS, #30 TAB 6 Refills Prov:SWATHI SIMS MD 11/07/18 Montelukast Sodium (SINGULAIR) 10 Mg Tablet, 1 TAB PO QDAY, #90 TAB 3 Refills Prov:SWATHI SIMS MD 11/05/18 Triamcinolone Acet 0.5% (TRIAMCINOLONE ACETONIDE 0.5%) 15 Gm Cr, 15 GM TP BID for 14 Days, #15 GM Prov:SWATHI SIMS MD 10/21/18 Prednisone 5 Mg Tab (PREDNISONE 5 MG TAB) 5 Mg Tablet, 5 MG PO QDAY, #90 TAB 4 Refills Prov:SWATHI SIMS MD 09/23/18 Levothyroxine Sodium (LEVOTHYROXINE SODIUM) 75 Mcg Tablet, 75 MCG PO QDAY, #90 TAB 3 Refills Prov:ELÍAS CORRALES MD 09/23/18 Pantoprazole Sodium (PANTOPRAZOLE SODIUM) 40 Mg Tablet.dr, 40 MG PO QDAY, #90 TAB.SR 3 Refills Prov:SWATHI SIMS MD 11/27/17 Hydroxychloroquine Sulfate (HYDROXYCHLOROQUINE SULFATE) 200 Mg Tablet, 1 TAB PO QDAY, #90 TAB 4 Refills Prov:SWATHI SIMS MD 11/27/17 Fluticasone Prop 50 Mcg Ns (FLONASE 50 MCG NS) 16 Gm [place].susp, 2 SPRAYS NA QDAY for 30 Days, #1 BOT 3 Refills Prov:JAY ROWLEY JR, MD 10/31/17 Reported Medications Dextran 70/Hypromellose (ARTIFICIAL TEARS) 1 Each Droperette, 1 DROP OU PRN 09/04/18 Albuterol Sulfate 90 Mcg/Act (PROAIR HFA 90 MCG/ACT) 8.5 Gm Hfa.aer.ad, 2 PUFF IH QDAY, INHALER 09/04/18 Fluorometholone (FLUOROMETHOLONE) 5 Ml Drops.susp, 1 DROP OU BID 09/04/18 Ibuprofen (IBUPROFEN) 200 Mg Capsule, 1 CAP PO Q6H PRN for pain, CAPSULE 09/03/18 Cholecalciferol (Vitamin D3) (D-2000) 2,000 Unit Capsule, 2000 UNIT PO QDAY, CAPSULE 11/27/17 Discontinued Reported Medications Hydroxyzine Hcl (HYDROXYZINE HCL) 10 Mg Tablet, 2 TAB PO TID 09/04/18 Past Medical/Surgical History Patient has a past medical history of seizures, asthma, occasional missed beats, asthma, shortness of breath with exertion, pneumonia, ulcerative colitis, reflux, hiatal hernia, arthritis, fractures, difficulty swallowing, Sjogrens syndrome, shingles, depression, skin cancer. Patient has surgical history of skin cancer removal, bilateral cataract surgery, back surgery, rotator cuff surgery, right knee surgery, hysterectomy, partial colectomy, appendectomy. Patient has a family medical history of cancer, CAD, stroke, diabetes. Reviewed Nurses Notes: Yes Hx Smoking: No Smoking Status: Never Smoker Exposure to Second Hand Smoke?: Yes Hx Substance Use Disorder: No Hx Alcohol Use: No Constitutional Vital Sign - Last 24 Hours 11/12/18 11/12/18 11/12/18 11/12/18 15:22 15:27 15:31 15:37 Pulse ??? 89 B/P (MAP) 128/77 (94) Pulse Ox 95 O2 Delivery Room Air 11/12/18 11/12/18 11/12/18 11/12/18 15:52 16:07 16:22 16:31 Pulse 95 85 ??? B/P (MAP) 123/111 (115) Pulse Ox 96 94 11/12/18 11/12/18 11/12/18 11/12/18 16:37 16:52 17:07 17:12 Pulse ? 92 ??? Pulse Ox 81 90 81 11/12/18 11/12/18 11/12/18 11/12/18 17:27 17:30 17:42 17:57 Pulse ? B/P (MAP) ???/??? (1665) 11/12/18 11/12/18 11/12/18 11/12/18 18:00 18:12 18:27 18:30 Pulse ? B/P (MAP) ???/??? (1665) ???/??? (166) 11/12/18 11/12/18 11/12/18 11/12/18 18:42 18:57 19:02 19:03 Pulse ? 105 B/P (MAP) 129/80 (96) Pulse Ox 85 11/12/18 11/12/18 11/12/18 11/12/18 19:17 19:32 19:40 19:47 Pulse ? 98 Pulse Ox 90 95 O2 Flow Rate 1.0 11/12/18 20:02 Pulse ??? Physical Exam General Appearance: The patient is alert, has no immediate need for airway protection and no current signs of toxicity. Respiratory: Chest is non tender, lungs are clear to auscultation. Cardiac: regular rate and rhythm Gastrointestinal: Abdomen is soft and diffusely tender, no masses, bowel sounds are hyperactive. Musculoskeletal: Neck: Neck is supple and non tender. Extremities have full range of motion and are non tender. Skin: No rashes or lesions. DIFFERENTIAL DIAGNOSIS: After history and physical exam differential diagnosis was considered for nausea and vomiting including but not limited to gastroenteritis, gastritis, appendicitis, and medication side effect. Medical Decision Making Data Points Result Diagram: 11/12/18 1522 11/12/18 1522 Laboratory Hematology Test 11/12/18 15:22 11/12/18 15:50 11/12/18 19:38 Red Blood Count 4.40 M/uL (4.17-5.56) Mean Corpuscular Volume 92.2 fL (80.0-96.0) Mean Corpuscular Hemoglobin 30.9 pg (26.0-33.0) Mean Corpuscular Hemoglobin Concent 33.5 g/dL (32.0-36.0) Red Cell Distribution Width 14.0 % (11.5-14.5) Mean Platelet Volume 8.9 fL (7.2-11.1) Neutrophils (%) (Auto) 90.9 % (39.4-72.5) Lymphocytes (%) (Auto) 2.6 % (17.6-49.6) Monocytes (%) (Auto) 5.2 % (4.1-12.4) Eosinophils (%) (Auto) 1.1 % (0.4-6.7) Basophils (%) (Auto) 0.2 % (0.3-1.4) Nucleated RBC Relative Count (auto) 0.0 /100WBC Neutrophils # (Auto) 6.0 K/uL (2.0-7.4) Lymphocytes # (Auto) 0.2 K/uL (1.3-3.6) Monocytes # (Auto) 0.3 K/uL (0.3-1.0) Eosinophils # (Auto) 0.1 K/uL (0.0-0.5) Basophils # (Auto) 0.0 K/uL (0.0-0.1) Nucleated RBC Absolute Count (auto) 0.00 K/uL Peripheral Blood Smear No Y/N Sodium Level 137 mmol/L (137-145) Potassium Level 3.4 mmol/L (3.5-5.0) Chloride Level 107 mmol/L (98-107) Carbon Dioxide Level 27 mmol/L (22-31) Blood Urea Nitrogen 15 mg/dl (7-18) Creatinine 0.90 mg/dl (0.52-1.04) Glomerular Filtration Rate Calc > 60.0 Random Glucose 97 mg/dl (75-110) Calcium Level 9.3 mg/dl (8.4-10.2) Total Bilirubin 0.7 mg/dl (0.2-1.3) Aspartate Amino Transf (AST/SGOT) 26 U/L (0-35) Alanine Aminotransferase (ALT/SGPT) 23 U/L (0-56) Alkaline Phosphatase 88 U/L (0-126) Total Protein 7.5 g/dl (6.3-8.2) Albumin 4.1 g/dl (3.5-5.0) Amylase Level 139 U/L (0-110) Lipase 105 U/L (23-300) Influenza Virus Type A (PCR) Negative (NEGATIVE) Influenza Virus Type B (PCR) Negative (NEGATIVE) Urine Color Yellow Urine Clarity Clear Urine pH 8.0 pH (4.8-9.5) Urine Specific [place] 1.012 Urine Protein Negative mg/dL (NEGATIVE) Urine Glucose (UA) Negative mg/dL (NEGATIVE) Urine Ketones Trace mg/dL (NEGATIVE) Urine Blood Negative (NEGATIVE) Urine Nitrite Negative (NEGATIVE) Urine Bilirubin Negative (NEGATIVE) Urine Urobilinogen Negative mg/dL (0.2-1.9) Urine Leukocyte Esterase Negative (NEGATIVE) Urine RBC 3 /HPF (0-2/HPF) Urine WBC 3 /HPF (0-5/HPF) Urine Squamous Epithelial Cells Moderate /LPF (</=FEW) Urine Bacteria Negative /HPF (NONE-FEW) Urine Mucus Few /HPF (NONE-FEW) Chemistry Test 11/12/18 15:22 11/12/18 15:50 11/12/18 19:38 White Blood Count 6.6 k/uL (4.5-11.0) Red Blood Count 4.40 M/uL (4.17-5.56) Hemoglobin 13.6 g/dL (12.0-16.0) Hematocrit 40.6 % (34.0-47.0) Mean Corpuscular Volume 92.2 fL (80.0-96.0) Mean Corpuscular Hemoglobin 30.9 pg (26.0-33.0) Mean Corpuscular Hemoglobin Concent 33.5 g/dL (32.0-36.0) Red Cell Distribution Width 14.0 % (11.5-14.5) Platelet Count 197 K/uL (150-450) Mean Platelet Volume 8.9 fL (7.2-11.1) Neutrophils (%) (Auto) 90.9 % (39.4-72.5) Lymphocytes (%) (Auto) 2.6 % (17.6-49.6) Monocytes (%) (Auto) 5.2 % (4.1-12.4) Eosinophils (%) (Auto) 1.1 % (0.4-6.7) Basophils (%) (Auto) 0.2 % (0.3-1.4) Nucleated RBC Relative Count (auto) 0.0 /100WBC Neutrophils # (Auto) 6.0 K/uL (2.0-7.4) Lymphocytes # (Auto) 0.2 K/uL (1.3-3.6) Monocytes # (Auto) 0.3 K/uL (0.3-1.0) Eosinophils # (Auto) 0.1 K/uL (0.0-0.5) Basophils # (Auto) 0.0 K/uL (0.0-0.1) Nucleated RBC Absolute Count (auto) 0.00 K/uL Peripheral Blood Smear No Y/N Glomerular Filtration Rate Calc > 60.0 Calcium Level 9.3 mg/dl (8.4-10.2) Total Bilirubin 0.7 mg/dl (0.2-1.3) Aspartate Amino Transf (AST/SGOT) 26 U/L (0-35) Alanine Aminotransferase (ALT/SGPT) 23 U/L (0-56) Alkaline Phosphatase 88 U/L (0-126) Total Protein 7.5 g/dl (6.3-8.2) Albumin 4.1 g/dl (3.5-5.0) Amylase Level 139 U/L (0-110) Lipase 105 U/L (23-300) Influenza Virus Type A (PCR) Negative (NEGATIVE) Influenza Virus Type B (PCR) Negative (NEGATIVE) Urine Color Yellow Urine Clarity Clear Urine pH 8.0 pH (4.8-9.5) Urine Specific [place] 1.012 Urine Protein Negative mg/dL (NEGATIVE) Urine Glucose (UA) Negative mg/dL (NEGATIVE) Urine Ketones Trace mg/dL (NEGATIVE) Urine Blood Negative (NEGATIVE) Urine Nitrite Negative (NEGATIVE) Urine Bilirubin Negative (NEGATIVE) Urine Urobilinogen Negative mg/dL (0.2-1.9) Urine Leukocyte Esterase Negative (NEGATIVE) Urine RBC 3 /HPF (0-2/HPF) Urine WBC 3 /HPF (0-5/HPF) Urine Squamous Epithelial Cells Moderate /LPF (</=FEW) Urine Bacteria Negative /HPF (NONE-FEW) Urine Mucus Few /HPF (NONE-FEW) Urinalysis Test 11/12/18 19:38 Urine Color Yellow Urine Clarity Clear Urine pH 8.0 pH (4.8-9.5) Urine Specific [place] 1.012 Urine Protein Negative mg/dL (NEGATIVE) Urine Glucose (UA) Negative mg/dL (NEGATIVE) Urine Ketones Trace mg/dL (NEGATIVE) Urine Blood Negative (NEGATIVE) Urine Nitrite Negative (NEGATIVE) Urine Bilirubin Negative (NEGATIVE) Urine Urobilinogen Negative mg/dL (0.2-1.9) Urine Leukocyte Esterase Negative (NEGATIVE) Urine RBC 3 /HPF (0-2/HPF) Urine WBC 3 /HPF (0-5/HPF) Urine Squamous Epithelial Cells Moderate /LPF (</=FEW) Urine Bacteria Negative /HPF (NONE-FEW) Urine Mucus Few /HPF (NONE-FEW) EKG/Imaging Imaging EXAMINATION: CT HEAD WITHOUT CONTRAST COMPARISON: 09/03/2018. HISTORY: Confusion. PROCEDURE: Noncontrast CT from the vertex through the skull base. One of the following dose optimization techniques was utilized in the performance of this exam: Automated exposure control; adjustment of the mA and/or kV according to t he patient's size; or use of an iterative reconstruction technique. Specific details can be referenced in the facility's radiology CT exam operational policy. FINDINGS: Brain volume: Mild global volume loss. Hemorrhage/extra-axial fluid: None. Mass effect/midline shift/edema: Right frontal calcified 8 mm meningioma is unchanged. No mass effect, midline shift, or edema. Ischemia: No flores-white differentiation loss. Ventricles and basal cisterns: Within normal limits. Posterior fossa: Negative. Vessels: Atherosclerosis. Calvarium, skull base, and scalp: Negative. Visualized sinuses and orbits: Within normal limits. IMPRESSION: 1. No intracranial hemorrhage or mass effect. 2. No CT findings of acute ischemia. 3. Unchanged right frontal small meningioma. Report Dictated By: Joby Ramirez MD at 11/12/2018 6:31 PM Report E-Signed By: Joby Ramirez MD at 11/12/2018 6:38 PM Study: ACUTE ABDOMEN SERIES 3 VIEW Indication: Pain Comparison study: September 23, 2014 Findings: Upright AP chest and upright and supine views of the abdomen demonstrates no evidence of acute chest abnormality. The abdomen is unremarkable in appearance. There is no evidence of small bowel obstruction. There is no evidence of pneumoperitoneum. IMPRESSION: Unremarkable exam Report Dictated By: Neftaly Cleary at 11/12/2018 5:54 PM Report E-Signed By: Neftaly Cleary at 11/12/2018 5:55 PM ED Course/Re-evaluation ED Course Patient was admitted to an exam room, history and physical obtained. Differential diagnoses were considered. On examination lungs are clear, heart is regular, abdomen is soft and nontender. Bowel sounds were hyperactive. An IV was started, a CBC, CMP, urinalysis, acute abdominal x-ray were done. Lab results were unremarkable, patient had a slight left shift, but I believe that is likely secondary to a viral illness. Imaging results were also negative. I went and discussed the findings with the patient and her . stated that he did not feel that she was able to go home. He felt that if she were to go home that she would not do well and would come back. He also stated that he felt that her confusion was getting worse. At that time a CT scan of the head was done which was negative. I discussed the case with Dr. Valderrama, hospitalist, who came down and evaluated the patient. He felt that he would go ahead and admit her as she does appear to be very frail this point in time. I discussed this with the patient and her verbalized understanding and agreement with plan. Decision to Disposition Date: Nov 12, 2018 Decision to Disposition Time: 19:23 Depart Departure Latest Vital Signs Vital Signs Date Time Temp Pulse Resp B/P (MAP) Pulse Ox O2 Delivery O2 Flow Rate FiO2 11/12/18 20:02 ??? 11/12/18 19:47 95 11/12/18 19:40 1.0 11/12/18 19:03 129/80 (96) 11/12/18 15:27 Room Air Impression: Primary Impression: Gastroenteritis Condition: Condition Unchanged Disposition: Admitted from ER Referrals: SWATHI SIMS MD (PCP) PIEDAD HUTCHISON Nov 12, 2018 15:35
[2018-11-12] MEDS ORDERED: NS(*) 0.9% 500 ML BAG 500 ML IV ONE (15:40)
[2018-11-12 15:50] LABS: PLATELET COUNT, AUTOMATED 197 K/uL (150-450)
[2018-11-12] MEDS ORDERED: ONDANSETRON 4 MG/2 ML VIAL IVP ONE ×2 (16:00→17:20)
--- NOTE | 2018-11-12 17:59 | RADIOLOGY IMAGING REPORT ---
FACILITY: [facility] [place] PATIENT NAME: Temo Chavez : 1945 MR: [id number] V: [id number] EXAM DATE: ORDERING PHYSICIAN: PIEDAD HUTCHISON TECHNOLOGIST: Location: [facility] Patient: Temo Chavez : 1945 Visit/Account:[id number] Date of Sevice: 11/12/2018 Study: ACUTE ABDOMEN SERIES 3 VIEW Indication: Pain Comparison study: September 23, 2014 Findings: Upright AP chest and upright and supine views of the abdomen demonstrates no evidence of ac bessy chest abnormality. The abdomen is unremarkable in appearance. There is no evidence of small bowel obstruction. There is no evidence of pneumoperitoneum. IMPRESSION: Unremarkable exam Report Dictated By: Neftaly Cleary at 11/12/2018 5:54 PM Report E-Signed By: Neftaly Cleary at 11/12/2018 5:55 PM WSN:[id number]
--- NOTE | 2018-11-12 18:41 | RADIOLOGY IMAGING REPORT ---
FACILITY: [facility] PATIENT NAME: Temo Cahvez : 1945 MR: [id number] V: [id number] EXAM DATE: ORDERING PHYSICIAN: PIEDAD HUTCHISON TECHNOLOGIST: Location: [facility] [place] Patient: Temo Chavez : 1945 Visit/Account:[id number] Date of Sevice: 11/12/2018 EXAMINATION: CT HEAD WITHOUT CONTRAST COMPARISON: 09/03/2018. HISTORY: Confusion. PROCEDURE: Noncontrast CT from the vertex through the skull base. One of the following dose optimizat ion techniques was utilized in the performance of this exam: Automated exposure control; adjustment o f the mA and/or kV according to the patient's size; or use of an iterative reconstruction technique. Specific details can be referenced in the facility's radiology CT exam operational policy. FINDINGS: Brain volume: Mild global volume loss. Hemorrhage/extra-axial fluid: None. Mass effect/midline shift/edema: Right frontal calcified 8 mm meningioma is unchanged. No mass effect , midline shift, or edema. Ischemia: No flores-white differentiation loss. Ventricles and basal cisterns: Within normal limits. Posterior fossa: Negative. Vessels: Atherosclerosis. Calvarium, skull base, and scalp: Negative. Visualized sinuses and orbits: Within normal limits. IMPRESSION: 1. No intracranial hemorrhage or mass effect. 2. No CT findings of acute ischemia. 3. Unchanged right frontal small meningioma. Report Dictated By: Joby Ramirez MD at 11/12/2018 6:31 PM Report E-Signed By: oJby Ramirez MD at 11/12/2018 6:38 PM WSN:[id number]
[2018-11-12] MEDS ORDERED: ALBUTEROL 2.5 MG/3 ML NEB NEB PRN (19:50)
[2018-11-12] MEDS ORDERED: PROMETHAZINE 25 MG/ML 1 ML AMP IVP PRN (19:50)
[2018-11-12] MEDS ORDERED: HYPROMELLOSE 0.4% LUB 15ML BTL OU PRN (19:50)
--- NOTE | 2018-11-12 20:17 | History & Physical ---
History of Present Illness History of Present Illness 73yo female with dementia, SLE vs RA who was brought to the ER for n/v/diarrhea. She was in her normal state of health until this morning. When she began having q15min vomiting and diarrhea. There was no report of blood or black substance in either. She has felt hot and cold all day. She hasn't had any sick contacts or suspicious food exposures. She is not reporting abdominal pain. She was started on mirtazapine by her PCP on 11/07, but no other new medications or supplements. In the ER, she was given Zofran x2 and 500cc of crystalloid. History Problems: (1) Rheumatoid arthritis Status: Chronic (2) Sjogrens syndrome Status: Chronic (3) Hypothyroidism Status: Chronic (4) PUD (peptic ulcer disease) Status: Chronic (5) Glaucoma Status: Chronic (6) GERD (gastroesophageal reflux disease) Status: Chronic (7) Asthma Status: Chronic (8) Memory loss Status: Chronic (9) Eczematous dermatitis Status: Chronic Home Meds Active Scripts Mirtazapine (MIRTAZAPINE) 7.5 Mg Tablet, 7.5 MG PO QHS, #30 TAB 6 Refills Prov:SWATHI SIMS MD 11/07/18 Montelukast Sodium (SINGULAIR) 10 Mg Tablet, 1 TAB PO QDAY, #90 TAB 3 Refills Prov:SWATHI SIMS MD 11/05/18 Triamcinolone Acet 0.5% (TRIAMCINOLONE ACETONIDE 0.5%) 15 Gm Cr, 15 GM TP BID for 14 Days, #15 GM Prov:SWATHI SIMS MD 10/21/18 Prednisone 5 Mg Tab (PREDNISONE 5 MG TAB) 5 Mg Tablet, 5 MG PO QDAY, #90 TAB 4 Refills Prov:SWATHI SIMS MD 09/23/18 Levothyroxine Sodium (LEVOTHYROXINE SODIUM) 75 Mcg Tablet, 75 MCG PO QDAY, #90 TAB 3 Refills Prov:ELÍAS CORRALES MD 09/23/18 Pantoprazole Sodium (PANTOPRAZOLE SODIUM) 40 Mg Tablet.dr, 40 MG PO QDAY, #90 TAB.SR 3 Refills Prov:SWATHI SIMS MD 11/27/17 Hydroxychloroquine Sulfate (HYDROXYCHLOROQUINE SULFATE) 200 Mg Tablet, 1 TAB PO QDAY, #90 TAB 4 Refills Prov:SWATHI SIMS MD 11/27/17 Fluticasone Prop 50 Mcg Ns (FLONASE 50 MCG NS) 16 Gm [place].susp, 2 SPRAYS NA QDAY for 30 Days, #1 BOT 3 Refills Prov:JAY ROWLEY JR, MD 10/31/17 Reported Medications Dextran 70/Hypromellose (ARTIFICIAL TEARS) 1 Each Droperette, 1 DROP OU PRN 09/04/18 Albuterol Sulfate 90 Mcg/Act (PROAIR HFA 90 MCG/ACT) 8.5 Gm Hfa.aer.ad, 2 PUFF IH QDAY, INHALER 09/04/18 Fluorometholone (FLUOROMETHOLONE) 5 Ml Drops.susp, 1 DROP OU BID 09/04/18 Ibuprofen (IBUPROFEN) 200 Mg Capsule, 1 CAP PO Q6H PRN for pain, CAPSULE 09/03/18 Cholecalciferol (Vitamin D3) (D-2000) 2,000 Unit Capsule, 2000 UNIT PO QDAY, CAPSULE 11/27/17 Discontinued Reported Medications Hydroxyzine Hcl (HYDROXYZINE HCL) 10 Mg Tablet, 2 TAB PO TID 09/04/18 Allergies: Coded Allergies: Sulfa (Sulfonamide Antibiotics) (Verified Allergy, Severe, VISUAL DISTURBANCES, 09/03/18) clavulanic acid (Verified Allergy, Severe, CHOLITIS, 09/03/18) metoclopramide (Verified Allergy, Severe, PSYCHOTIC EFFECTS, 09/03/18) codeine (Verified Allergy, Intermediate, NAUSEA, 09/03/18) meperidine (Verified Allergy, Intermediate, NAUSEA, HIVES, 09/03/18) morphine (Verified Allergy, Intermediate, NAUSEA, HIVES, 09/03/18) lactose (Verified Allergy, Mild, GI DISTRESS, 09/03/18) Niacin Preparations (Verified Allergy, Unknown, UNKNOWN, 09/03/18) cephalexin (Verified Allergy, Unknown, UNKNOWN, 09/03/18) erythromycin base (Verified Allergy, Unknown, 09/03/18) furosemide (Verified Allergy, Unknown, 09/03/18) levofloxacin (Verified Adverse Reaction, Mild, 09/03/18) tendon inflammation Patient History: Cancer of mouth BROTHER OR SISTER (Smokes, Healthy and several half sisters and brothers. ) Other Social/Family Hx Lives with her . No alcohol or tobacco use. Hx Smoking: No Smoking Status: Never Smoker Exposure to Second Hand Smoke?: Yes Caffeine Intake: Soda Caffeine/Cups Per Day: 1 CAN DAILY Hx Alcohol Use: No Hx Substance Use Disorder: No Review of Systems All Systems Reviewed/Normal: Yes, Except as Noted Exam Vital Signs Vital Signs Date Time Temp Pulse Resp B/P (MAP) Pulse Ox O2 Delivery O2 Flow Rate FiO2 11/12/18 19:40 1.0 11/12/18 18:57 ??? 11/12/18 18:30 ???/??? (2485) 11/12/18 17:12 81 11/12/18 15:27 Room Air General Appearance: Awake, Other (Pale. Breathing comfortably. Cachectic appearing) Neuro: Other (Answers questions, but is confused to the events of the day.) ENT: Other (Dry mmm) Cardiovascular: Regular Rate and Rhythm Respiratory: Clear to Auscultation GI: Other (Soft, non-distended, mild epigastric tenderness with palpation) Extremities: No Edema Integumentary: No Jaundice, No Cyanosis Medical Decision Making Data Points Result Diagram: 11/12/18 1522 11/12/18 1522 Item Value Date Time Neutrophils (%) (Auto) 90.9 % H 11/12/18 1522 Lymphocytes (%) (Auto) 2.6 % L 11/12/18 1522 Monocytes (%) (Auto) 5.2 % 11/12/18 1522 Eosinophils (%) (Auto) 1.1 % 11/12/18 1522 Basophils (%) (Auto) 0.2 % L 11/12/18 1522 Total Bilirubin 0.7 mg/dl 11/12/18 1522 Aspartate Amino Transf (AST/SGOT) 26 U/L 11/12/18 1522 Alanine Aminotransferase (ALT/SGPT) 23 U/L 11/12/18 1522 Alkaline Phosphatase 88 U/L 11/12/18 1522 Influenza Virus Type A (PCR) Negative 11/12/18 1550 Influenza Virus Type B (PCR) Negative 11/12/18 1550 EKG / Imaging Imaging Head CT - 1. No intracranial hemorrhage or mass effect. 2. No CT findings of acute ischemia. 3. Unchanged right frontal small meningioma. Abd Xray - Unremarkable exam Assessment and Plan Problems: (1) Vomiting and diarrhea Status: Acute Assessment & Plan: She presented with about 12 hours of nausea, vomiting, and diarrhea. There are no symptoms concerning for bleeding. She has no sick contacts or worrisome food exposures. She has mild epigastric tenderness on exam, but it is otherwise benign. WBC wnl. Afebrile. Amylase is mildly elevated. Likely, a viral gastroenteritis that is complicated by her baseline malnutrition. Will hydrate, treat nausea, test stool for C. D if/leukocytes/offending bacteria. Will not start Imodium until stool studies back. Recheck amylase and lipase in the morning. (2) PUD (peptic ulcer disease) Status: Chronic Assessment & Plan: She is chronically on Protonix. Will change to IV and give a dose tonight for probable gastritis. (3) Rheumatoid arthritis Status: Chronic Assessment & Plan: Chronically on prednisone 5mg daily with will be continued. Will give a dose of hydrocortisone IV for stress dosing. (4) Sjogrens syndrome Status: Chronic Assessment & Plan: Continue chronic Plaquenil. (5) Memory loss Status: Chronic Copies to: SWATHI SIMS MD ; Venous Thromboembolism Antithrombotics Is Pt On Any Antithrombotics?: No Exam Sepsis Risk: No Definite Risk FIDEL UP MD Nov 12, 2018 20:16
[2018-11-12 20:30] VITALS: BP 123/63
[2018-11-12] MEDS ORDERED: HYDROCORTISONE 100 MG/2 ML IVP ONE (20:30)
[2018-11-12] MEDS: KCL/D1/2NS 20 MEQ 1000 ML 1,000 ML IV PRN (21:26)
[2018-11-12] MEDS: PANTOPRAZOLE SOD 40 MG IV VIAL IVP SCH (21:28)
[2018-11-12] MEDS: FLUOROMETHOLONE 0.1% OP SUSP OU SCH (21:28)
[2018-11-13 03:17] VITALS: BP 121/66
[2018-11-13] MEDS: LEVOTHYROXINE SOD 0.075 MG TAB PO SCH (05:29)
[2018-11-13 06:59] LABS: PLATELET COUNT, AUTOMATED 194 K/uL (150-450)
[2018-11-13 07:43] VITALS: BP 116/59
[2018-11-13] MEDS: KCL/D1/2NS 20 MEQ 1000 ML 1,000 ML IV PRN ×2 (08:05→18:19)
[2018-11-13] MEDS: PANTOPRAZOLE SOD 40 MG IV VIAL IVP SCH (09:53)
[2018-11-13] MEDS: FLUOROMETHOLONE 0.1% OP SUSP OU SCH ×2 (09:53→20:38)
[2018-11-13] MEDS: predniSONE 5 MG TAB PO SCH (09:54)
[2018-11-13] MEDS: ENOXAPARIN 30 MG/0.3 ML SYR SC SCH (09:54)
[2018-11-13] MEDS: HYDROXYCHLOROQUINE 200 MG TAB PO SCH (09:54)
[2018-11-13] MEDS: MONTELUKAST SODIUM 10 MG TAB PO SCH (09:54)
[2018-11-13] MEDS: ACETAMINOPHEN 325 MG TAB PO PRN ×2 (11:56→20:37)
[2018-11-13] MEDS ORDERED: ASPI81TA94 PO (13:19)
[2018-11-13] MEDS ORDERED: CYA1000 PO (13:19)
--- NOTE | 2018-11-13 13:50 | Hospitalist Progress Note ---
Subjective Progress Notes Subjective She was admitted with gastroenteritis. She has complaints of slight headache, some nausea and diarrhea. She did try to eat part of her lunch, but became nauseous. Patient Complains of: Cardiovascular: No: Chest Pain Respiratory: No: Shortness of Breath Gastrointestinal: Nausea Physical Exam Vital Signs Date Time Temp Pulse Resp B/P (MAP) Pulse Ox O2 Delivery O2 Flow Rate FiO2 11/13/18 07:43 95 Room Air 11/13/18 07:43 99.2 93 16 116/59 (78) 11/13/18 03:17 0.5 Intake and Output 11/13/18 07:00 Intake Total 700 ml Balance 700 ml Intake Oral 200 ml IV Total 500 ml # Voids 1 General Appearance: Alert, Awake, No Acute Distress, Afebrile Neuro: No Gross deficits Cardiovascular: Regular Rate and Rhythm Respiratory: No Respiratory Distress, Clear to Auscultation GI: Soft and Non-Tender Psych: Alert & Oriented X3, Appropriate Mood & Affect Result Diagram: 11/13/1864611/13/18646 Assessment and Plan Problems: (1) Vomiting and diarrhea Status: Acute Assessment & Plan: She presented with about 12 hours of nausea, vomiting, and diarrhea. There are no symptoms concerning for bleeding. She has no sick contacts or worrisome food exposures. She has mild epigastric tenderness on exam, but it is otherwise benign. WBC wnl. Afebrile. Amylase is mildly elevated upon admission. Likely, a viral gastroenteritis that is complicated by her baseline malnutrition. Will hydrate, treat nausea, test stool for C. Dif/leukocytes/offending bacteria. Will not start Imodium until stool studies back. Amylase and lipase were within normal limits. (2) PUD (peptic ulcer disease) Status: Chronic Assessment & Plan: She is chronically on Protonix. It was changed to IV and was given a dose upon admission for probable gastritis. (3) Rheumatoid arthritis Status: Chronic Assessment & Plan: Chronically on prednisone 5mg daily with will be continued. She was given a dose of hydrocortisone IV for stress dosing. (4) Sjogrens syndrome Status: Chronic Assessment & Plan: Continue chronic Plaquenil. (5) Memory loss Status: Chronic Exam Sepsis Risk: No Definite Risk JOSIAH CARRILLO Nov 13, 2018 13:50
[2018-11-13 14:00] VITALS: Ht 157.5 cm; Wt 44.9 kg
[2018-11-13 15:46] VITALS: BP 138/64
[2018-11-13 18:49] VITALS: BP 129/66
[2018-11-13] MEDS ORDERED: KCL/D1/2NS 20 MEQ 1000 ML 1,000 ML IV PRN (22:02)
[2018-11-13 23:00] VITALS: BP 138/60
[2018-11-14 05:38] VITALS: BP 153/72
[2018-11-14] MEDS: ACETAMINOPHEN 325 MG TAB PO PRN ×4 (05:38→21:29)
[2018-11-14] MEDS: LEVOTHYROXINE SOD 0.075 MG TAB PO SCH (05:38)
[2018-11-14 06:27] LABS: PLATELET COUNT, AUTOMATED 162 K/uL (150-450)
[2018-11-14 07:27] VITALS: BP 149/78
[2018-11-14] MEDS ORDERED: INFLUENZA VIRUS VAC 0.5ML SYR IM ONLY ONE (09:00)
[2018-11-14] MEDS: MONTELUKAST SODIUM 10 MG TAB PO SCH (09:21)
[2018-11-14] MEDS: ENOXAPARIN 30 MG/0.3 ML SYR SC SCH (09:21)
[2018-11-14] MEDS: PANTOPRAZOLE SOD 40 MG IV VIAL IVP SCH (09:21)
[2018-11-14] MEDS: HYDROXYCHLOROQUINE 200 MG TAB PO SCH (09:21)
[2018-11-14] MEDS: predniSONE 5 MG TAB PO SCH (09:21)
[2018-11-14] MEDS: FLUOROMETHOLONE 0.1% OP SUSP OU SCH ×2 (09:22→21:29)
--- NOTE | 2018-11-14 10:30 | NUR ---
Patient belongings After shower while getting dressed, money fell out of patient's jeans pocket. It was found to be a couple hundred dollars. This nurse encouraged patient and patient's to place money in sealed envelope and store in hospital safe. Patient and her have decided that items will stay in patient's possession at this time.
--- NOTE | 2018-11-14 10:45 | NUR ---
After giving Pt. a shower, I witness a few hundred dollars fall on the floor. I decided to pull all the money out of her pockets in front of the Pt. and put it all into a ziplock bad. Pt. refused to have the nurse and I count it and put it away.
--- NOTE | 2018-11-14 11:11 | Hospitalist Progress Note ---
Subjective Progress Notes Subjective She reports she feels better this morning. However, she reports her is ill with the same thing and had to go to the ER this morning. She reports he would be the one to care for her. Physical Exam Vital Signs Date Time Temp Pulse Resp B/P (MAP) Pulse Ox O2 Delivery O2 Flow Rate FiO2 11/14/18 07:27 97.5 73 18 149/78 (101) 96 Room Air 11/13/18 03:17 0.5 Intake and Output 11/14/18 00:00 Intake Total 240 ml Output Total 700 ml Balance -460 ml Intake Oral 240 ml Output Urine Total 700 ml # Voids 14 # Bowel Movements 4 General Appearance: Alert, Awake, No Acute Distress, Afebrile Neuro: No Gross deficits Cardiovascular: Regular Rate and Rhythm Respiratory: No Respiratory Distress, Clear to Auscultation GI: Soft and Non-Tender Psych: Alert & Oriented X3, Appropriate Mood & Affect Result Diagram: 11/14/1855011/14/18550 Assessment and Plan Problems: (1) Vomiting and diarrhea Status: Acute Assessment & Plan: She presented with about 12 hours of nausea, vomiting, and diarrhea. There are no symptoms concerning for bleeding. She has no sick contacts or worrisome food exposures. She has mild epigastric tenderness on exam, but it is otherwise benign. WBC wnl. Afebrile. Amylase is mildly elevated upon admission. Likely, a viral gastroenteritis that is complicated by her baseline malnutrition. Will hydrate, treat nausea, stool was tested for C. Diff was negative/leukocytes were positive/offending bacteria pending. Amylase and lipase were within normal limits. (2) PUD (peptic ulcer disease) Status: Chronic Assessment & Plan: She is chronically on Protonix. It was changed to IV and was given a dose upon admission for probable gastritis. (3) Rheumatoid arthritis Status: Chronic Assessment & Plan: Chronically on prednisone 5mg daily with will be continued. She was given a dose of hydrocortisone IV for stress dosing. (4) Sjogrens syndrome Status: Chronic Assessment & Plan: Continue chronic Plaquenil. (5) Memory loss Status: Chronic Assessment & Plan: She will remain in the hospital, secondary to her not being able to care for her. Exam Sepsis Risk: No Definite Risk JOSIAH CARRILLO Nov 14, 2018 11:11
[2018-11-14 11:12] VITALS: BP 141/77
[2018-11-14 19:50] VITALS: BP 154/74
[2018-11-15 02:25] VITALS: BP 136/83
[2018-11-15] MEDS: LEVOTHYROXINE SOD 0.075 MG TAB PO SCH (05:32)
[2018-11-15 07:36] VITALS: BP 129/81
--- NOTE | 2018-11-15 07:37 | Hospitalist Progress Note ---
Subjective Progress Notes Subjective This patient was admitted for diarrhea and weakness. She had no acute events overnight. Patient Complains of: Cardiovascular: No: Chest Pain Respiratory: No: Shortness of Breath Physical Exam Vital Signs Date Time Temp Pulse Resp B/P (MAP) Pulse Ox O2 Delivery O2 Flow Rate FiO2 11/15/18 02:25 97.8 87 18 136/83 (100) 95 Room Air 11/13/18 03:17 0.5 Intake and Output 11/15/18 07:00 Intake Total 230 ml Balance 230 ml Intake Oral 100 ml IV Total 130 ml # Voids 5 Cardiovascular: Regular Rate and Rhythm Respiratory: Clear to Auscultation GI: Soft and Non-Tender Result Diagram: 11/14/1855011/14/18550 Assessment and Plan Problems: (1) Vomiting and diarrhea Status: Acute Assessment & Plan: She presented with about 12 hours of nausea, vomiting, and diarrhea. Her symptoms have now resolved. However, her day care home mother is now admitted for a similar diagnosis. She will need to remain until a safe discharge plan is in place. (2) PUD (peptic ulcer disease) Status: Chronic Assessment & Plan: She is chronically on Protonix. (3) Rheumatoid arthritis Status: Chronic Assessment & Plan: Chronically on prednisone 5mg daily with will be continued. She was given a dose of hydrocortisone IV for stress dosing. (4) Sjogrens syndrome Status: Chronic Assessment & Plan: Continue chronic Plaquenil. (5) Memory loss Status: Chronic Assessment & Plan: She will remain in the hospital, secondary to her not being able to care for her. Exam Sepsis Risk: No Definite Risk DUONG VILLAGOMEZ DO Nov 15, 2018 07:37
[2018-11-15] MEDS: HYDROXYCHLOROQUINE 200 MG TAB PO SCH (09:13)
[2018-11-15] MEDS: MONTELUKAST SODIUM 10 MG TAB PO SCH (09:13)
[2018-11-15] MEDS: PANTOPRAZOLE SOD 40 MG TABEC PO SCH (09:13)
[2018-11-15] MEDS: ENOXAPARIN 30 MG/0.3 ML SYR SC SCH (09:13)
[2018-11-15] MEDS: predniSONE 5 MG TAB PO SCH (09:13)
[2018-11-15] MEDS: FLUOROMETHOLONE 0.1% OP SUSP OU SCH ×2 (09:13→20:59)
[2018-11-15 14:45] VITALS: BP 134/6
[2018-11-15] MEDS: ACETAMINOPHEN 325 MG TAB PO PRN (21:01)
[2018-11-16] MEDS: LEVOTHYROXINE SOD 0.075 MG TAB PO SCH (05:56)
--- NOTE | 2018-11-16 08:04 | Hospitalist Progress Note ---
Subjective Progress Notes Subjective No new problems today. She is eating/drinking. Physical Exam Vital Signs Date Time Temp Pulse Resp B/P (MAP) Pulse Ox O2 Delivery O2 Flow Rate FiO2 11/15/18 21:01 96 Room Air 11/15/18 14:45 98.5 77 16 134/6 (48) 11/13/18 03:17 0.5 Intake and Output 11/16/18 07:00 Intake Total 500 ml Balance 500 ml Intake Oral 500 ml # Voids 2 General Appearance: Alert, Awake Cardiovascular: Regular Rate and Rhythm Respiratory: Clear to Auscultation GI: Soft and Non-Tender Result Diagram: 11/14/1851 11/14/18550 Assessment and Plan Problems: (1) Vomiting and diarrhea Status: Acute Assessment & Plan: Improved/resolved. However, her manager respiratory care is now admitted for a similar diagnosis. Due to her dementia, she will need to remain until a safe discharge plan is in place. (2) PUD (peptic ulcer disease) Status: Chronic Assessment & Plan: She is chronically on Protonix. (3) Rheumatoid arthritis Status: Chronic Assessment & Plan: Chronically on prednisone 5mg daily with will be continued. She was given a dose of hydrocortisone IV for stress dosing. (4) Sjogrens syndrome Status: Chronic Assessment & Plan: Continue chronic Plaquenil. (5) Memory loss Status: Chronic Assessment & Plan: She will remain in the hospital, secondary to her not being available/able to care for her (as he is currently admitted to [facility] as well). Exam Sepsis Risk: No Definite Risk ALEJANDRO GILL MD Nov 16, 2018 08:04
[2018-11-16 08:10] VITALS: BP 149/75
[2018-11-16] MEDS: HYDROXYCHLOROQUINE 200 MG TAB PO SCH (09:31)
[2018-11-16] MEDS: FLUOROMETHOLONE 0.1% OP SUSP OU SCH ×2 (09:31→20:41)
[2018-11-16] MEDS: predniSONE 5 MG TAB PO SCH (09:31)
[2018-11-16] MEDS: PANTOPRAZOLE SOD 40 MG TABEC PO SCH (09:31)
[2018-11-16] MEDS: ENOXAPARIN 30 MG/0.3 ML SYR SC SCH (09:31)
[2018-11-16] MEDS: MONTELUKAST SODIUM 10 MG TAB PO SCH (09:31)
[2018-11-16 13:38] VITALS: BP 150/82
[2018-11-16 19:42] VITALS: BP 129/72
[2018-11-16] MEDS: ACETAMINOPHEN 325 MG TAB PO PRN (20:41)
[2018-11-17 01:35] VITALS: BP 152/74
[2018-11-17] MEDS: LEVOTHYROXINE SOD 0.075 MG TAB PO SCH (05:51)
[2018-11-17 08:54] VITALS: BP 126/76
[2018-11-17] MEDS: predniSONE 5 MG TAB PO SCH (09:03)
[2018-11-17] MEDS: MONTELUKAST SODIUM 10 MG TAB PO SCH (09:03)
[2018-11-17] MEDS: HYDROXYCHLOROQUINE 200 MG TAB PO SCH (09:03)
[2018-11-17] MEDS: PANTOPRAZOLE SOD 40 MG TABEC PO SCH (09:03)
[2018-11-17] MEDS: FLUOROMETHOLONE 0.1% OP SUSP OU SCH (09:03)
[2018-11-17] MEDS: ENOXAPARIN 30 MG/0.3 ML SYR SC SCH (09:04)
--- NOTE | 2018-11-17 10:09 | Hospitalist Progress Note ---
Subjective Progress Notes Subjective She has no complaints this morning. She had no acute events overnight. Patient Complains of: Cardiovascular: No: Chest Pain Respiratory: No: Shortness of Breath Physical Exam Vital Signs Date Time Temp Pulse Resp B/P (MAP) Pulse Ox O2 Delivery O2 Flow Rate FiO2 11/17/18 08:54 98.5 9 16 126/76 (93) Room Air 11/17/18 07:55 97 Intake and Output 11/17/18 07:00 Intake Total 940 ml Balance 940 ml Intake Oral 940 ml # Voids 2 General Appearance: Alert, Awake, No Acute Distress, Afebrile Neuro: No Gross deficits Cardiovascular: Regular Rate and Rhythm Respiratory: No Respiratory Distress, Clear to Auscultation GI: Soft and Non-Tender Psych: Alert & Oriented X3, Appropriate Mood & Affect Result Diagram: 11/14/1855011/14/18550 Assessment and Plan Problems: (1) Vomiting and diarrhea Status: Acute Assessment & Plan: Improved/resolved. However, her hearing care professional is now admitted for a similar diagnosis. Due to her dementia, she will need to remain until a safe discharge plan is in place. (2) PUD (peptic ulcer disease) Status: Chronic Assessment & Plan: She is chronically on Protonix. (3) Rheumatoid arthritis Status: Chronic Assessment & Plan: Chronically on prednisone 5mg daily with will be continued. She was given a dose of hydrocortisone IV for stress dosing. (4) Sjogrens syndrome Status: Chronic Assessment & Plan: Continue chronic Plaquenil. (5) Memory loss Status: Chronic Assessment & Plan: She will remain in the hospital, secondary to her not being available/able to care for her (as he is currently admitted to [facility] as well). Exam Sepsis Risk: No Definite Risk JOSIAH CARRILLO Nov 17, 2018 10:09
[2018-11-17] MEDS ORDERED: PROM12.556 PO (13:34)
--- NOTE | 2018-11-17 13:37 | Hospitalist Depart ---
Discharge Summary Reason for Hosp/Final Diag: (1) Vomiting and diarrhea Status: Acute Hospital Course & Plan: Improved/resolved. However, her long term care phlebotomist was admitted for a similar diagnosis. Due to her dementia, she remained at the hospital until a safe discharge plan was in place. She will go home with her and has home health. (2) PUD (peptic ulcer disease) Status: Chronic Hospital Course & Plan: She is chronically on Protonix. (3) Rheumatoid arthritis Status: Chronic Hospital Course & Plan: Chronically on prednisone 5mg daily with will be continued. She was given a dose of hydrocortisone IV for stress dosing. (4) Sjogrens syndrome Status: Chronic Hospital Course & Plan: Continue chronic Plaquenil. (5) Memory loss Status: Chronic Hospital Course & Plan: She remained in the hospital, secondary to her not being available/able to care for her (as he is currently admitted to [facility] as well). Departure Weight (Pounds): 99 Weight (Ounces): 0.6 Result Diagram: 11/14/1855011/14/18550 Condition: Improved Discharge: Home, Home Health PT/OT Follow Up For: PT For Strengthening, OT For ADL's, ST Evaluation and Treat, OT Evaluation and Treat Home Health RN Follow Up For: Medication Management, Nursing Assessment Home Health PACKAGING SPECIALIST Follow Up For: ADL Assistance Discharge Instructions Home Meds Active Scripts Promethazine Hcl (PROMETHAZINE HCL) 12.5 Mg Tablet, 12.5 MG PO Q6H, #20 TAB Prov:JOSIAH CARRILLO MANAGER OCCUPATIONAL 11/17/18 Mirtazapine (MIRTAZAPINE) 7.5 Mg Tablet, 7.5 MG PO QHS, #30 TAB 6 Refills Prov:SWATHI HANDY MD 11/07/18 Montelukast Sodium (SINGULAIR) 10 Mg Tablet, 1 TAB PO QDAY, #90 TAB 3 Refills Prov:SWATHI HANDY MD 11/05/18 Triamcinolone Acet 0.5% (TRIAMCINOLONE ACETONIDE 0.5%) 15 Gm Cr, 15 GM TP BID for 14 Days, #15 GM Prov:SWATHI HANDY MD 10/21/18 Prednisone 5 Mg Tab (PREDNISONE 5 MG TAB) 5 Mg Tablet, 5 MG PO QDAY, #90 TAB 4 Refills Prov:SWATHI HANDY MD 09/23/18 Levothyroxine Sodium (LEVOTHYROXINE SODIUM) 75 Mcg Tablet, 75 MCG PO QDAY, #90 TAB 3 Refills Prov:ELÍAS CORRALES MD 09/23/18 Pantoprazole Sodium (PANTOPRAZOLE SODIUM) 40 Mg Tablet.dr, 40 MG PO QDAY, #90 TAB.SR 3 Refills Prov:SWATHI HANDY MD 11/27/17 Hydroxychloroquine Sulfate (HYDROXYCHLOROQUINE SULFATE) 200 Mg Tablet, 1 TAB PO QDAY, #90 TAB 4 Refills Prov:SWATHI HANDY MD 11/27/17 Fluticasone Prop 50 Mcg Ns (FLONASE 50 MCG NS) 16 Gm [place].susp, 2 SPRAYS NA QDAY for 30 Days, #1 BOT 3 Refills Prov:JAY ROWLEY JR, MD 10/31/17 Reported Medications Cyanocobalamin (Vitamin B-12) (VITAMIN B-12) 1,000 Mcg Tablet, 1000 MCG PO QDAY 11/13/18 Aspirin (ASPIRIN) 81 Mg Tab.chew, 81 MG PO QDAY, TAB.CHEW 11/13/18 Albuterol Sulfate 90 Mcg/Act (PROAIR HFA 90 MCG/ACT) 8.5 Gm Hfa.aer.ad, 2 PUFF IH QDAY, INHALER 09/04/18 Fluorometholone (FLUOROMETHOLONE) 5 Ml Drops.susp, 1 DROP OU BID 09/04/18 Ibuprofen (IBUPROFEN) 200 Mg Capsule, 1 CAP PO Q6H PRN for pain, CAPSULE 09/03/18 Cholecalciferol (Vitamin D3) (D-2000) 2,000 Unit Capsule, 2000 UNIT PO QDAY, CAPSULE 11/27/17 Discontinued Reported Medications Dextran 70/Hypromellose (ARTIFICIAL TEARS) 1 Each Droperette, 1 DROP OU PRN 09/04/18 Diet: Regular Activity: As Tolerated Special Instructions: Follow up with Dr. Handy in one week. Copies to: SWATHI HANDY MD ; Venous Thromboembolism Antithrombotics Is Pt On Any Antithrombotics?: No [id number] Certification Face to Face Home Health Certification Institutional Provider conducted the [id number] encounter. Electronic Undersigning Physician Certifies Home Health. I certify that the patient has been under my care and that I had a [id number] encounter that meets the physician [id number] encounter requirements with this patient. This patient is home-bound due to safety issues and continues to require assistance with ADL's. I certify that based on my findings, that Nursing, Aides and the following Home Health services are medically necessary. Medical Necessity: Nursing, Rehab Date Face to Face Conducted: Nov 17, 2018 JOSIAH CARRILLO Nov 17, 2018 13:37
[2018-11-24] MEDS ORDERED: GENT3.5O26 OP (15:47)
== END 2018-11-17 13:33 | disposition home health service (06) ==
LOC: ER 15:48 → MED 20:08
PROVIDERS: ADMIT Internal Medicine; ATTEND Internal Medicine
DX: K52.9 Noninfective gastroenteritis and colitis, unspecified (principal); K27.7 Chronic peptic ulcer, site unspecified, without hemorrhage or perforation; M06.9 Rheumatoid arthritis, unspecified; M35.00 Sjogren syndrome, unspecified; R41.3 Other amnesia
CPT/HCPCS: 36415; 70450; 74022; 81001; 82150; 82274; 83605; 83630; 83690; 85025; 87045; 87177; 87493; 87502; 96361; 96372; 96374; 96376; 99284; A9270; C9113; G0378; J1650; J1720; J2405; J3480; J7040; J7512; 82040; 82247; 82310; 82374; 82435; 82565; 82947; 84075; 84132; 84155; 84295; 84450; 84460; 84520

== ENCOUNTER → 2018-11-12 | Outpatient (CLI) | payer MEDICARE ==
[~2018-11-12] MED LIST changes: +ASPI81TA94 PO; +CYA1000 PO; +METR500T15 PO; -METR500T54 PO; -MIRT-27 PO; +MIRT15TA11 PO; +PROM12.556 PO; +TRI05T TP
[2018-11-13 14:00] VITALS: BMI 18.1
== END ==
LOC: AMB 14:48
PROVIDERS: ATTEND Nurse Practitioner
DX: R11.2 Nausea with vomiting, unspecified (principal); R19.7 Diarrhea, unspecified; R53.1 Weakness
CPT/HCPCS: A0425; A0427

== ENCOUNTER → 2018-11-27 | Outpatient (CLI) | payer MEDICARE ==
[2018-11-13 14:00] VITALS: BMI 18.1
[~2018-11-27] MED LIST changes: +ASPI81TA94 PO; +CYA1000 PO; +DEXTROSE 5%(*) 100 ML BAG 100 ML IVPB PRN; +GENT3.5O26 OP; +LIDOCAINE/SOD BICARB 8.4% SYR ID PRN; +NS(*) 0.9% 100 ML BAG 100 ML IVPB PRN; +NS(*) 0.9% 1000 ML BAG 1,000 ML IV ONE; +PROM12.556 PO
[2018-11-27 15:24] VITALS: BP 122/63
[2018-11-27 15:27] LABS: PLATELET COUNT, AUTOMATED 249 K/uL (150-450)
== END ==
LOC: SPU 14:51
PROVIDERS: ATTEND Internal Medicine
DX: K52.9 Noninfective gastroenteritis and colitis, unspecified (principal); M06.9 Rheumatoid arthritis, unspecified; R42 Dizziness and giddiness; R41.3 Other amnesia; M35.00 Sjogren syndrome, unspecified
CPT/HCPCS: 82150; 83690; 84439; 84443; 85025; 86140; 96360; J7030; 82040; 82247; 82310; 82374; 82435; 82565; 82947; 84075; 84132; 84155; 84295; 84450; 84460; 84520

== ENCOUNTER 2018-12-03 15:24 | Emergency (ER) | payer MEDICARE ==
[2018-11-13 14:00] VITALS: Wt 39.9 kg
[~2018-12-03 15:24] MED LIST changes: -DEXTROSE 5%(*) 100 ML BAG 100 ML IVPB PRN; -LIDOCAINE/SOD BICARB 8.4% SYR ID PRN; -NS(*) 0.9% 100 ML BAG 100 ML IVPB PRN; -NS(*) 0.9% 1000 ML BAG 1,000 ML IV ONE
--- NOTE | 2018-12-03 16:02 | ER Report ---
History and Physical Time Seen By : 15:30 Hx. of Stated Complaint: Pt. having seizure like activity, per . Dr. Handy is supposed to set up an EEG. HPI/ROS CHIEF COMPLAINT: Seizure-like activity HISTORY OF PRESENT ILLNESS: 73-year-old female multiple significant past medical history comes emergency Department today while sitting at [facility] waiting for food she had was reportedly witnessed seizure activity since she realized it was happening this is happening multiple times in the last couple of days on arrival to the emergency department she is back at her baseline she denies having any postictal phase poked her primary care schedule her for an EEG tomorrow however when the 2nd episode happened restaurant she came here for emergent evaluation. Arrival here she is at her baseline since she feels weeks that she didn't eat anything this morning or this afternoon which is somewhat abnormal for her patient denies any chest pain shortness of breath nausea vomiting diarrhea fever chills or additional complaints noted REVIEW OF SYSTEMS: Respiratory: No cough, no dyspnea. Cardiovascular: No chest pain, no palpitations. Gastrointestinal: No vomiting, no abdominal pain. Musculoskeletal: No back pain. Remainder of the 14 system rev: Yes Allergies: Coded Allergies: Sulfa (Sulfonamide Antibiotics) (Verified Allergy, Severe, VISUAL DISTURBANCES, 09/03/18) clavulanic acid (Verified Allergy, Severe, CHOLITIS, 09/03/18) metoclopramide (Verified Allergy, Severe, PSYCHOTIC EFFECTS, 09/03/18) codeine (Verified Allergy, Intermediate, NAUSEA, 09/03/18) meperidine (Verified Allergy, Intermediate, NAUSEA, HIVES, 09/03/18) morphine (Verified Allergy, Intermediate, NAUSEA, HIVES, 09/03/18) lactose (Verified Allergy, Mild, GI DISTRESS, 09/03/18) Niacin Preparations (Verified Allergy, Unknown, UNKNOWN, 09/03/18) cephalexin (Verified Allergy, Unknown, UNKNOWN, 09/03/18) erythromycin base (Verified Allergy, Unknown, 09/03/18) furosemide (Verified Allergy, Unknown, 09/03/18) levofloxacin (Verified Adverse Reaction, Mild, 09/03/18) tendon inflammation Home Meds Active Scripts Levothyroxine Sodium (LEVOTHYROXINE SODIUM) 50 Mcg Tablet, 50 MCG PO QDAY, #90 TAB 3 Refills Prov:SWATHI HANDY MD 12/01/18 Gentamicin Sulfate (GENTAMICIN SULFATE) 3.5 Gm Oint...g., 1-2 DROP OP Q4H for 7 Days, #1 BOTTLE 1-2 drops [id number] for 7 days in Left Eye Prov:SWATHI HANDY MD 11/24/18 Promethazine Hcl (PROMETHAZINE HCL) 12.5 Mg Tablet, 12.5 MG PO Q6H, #20 TAB Prov:JOSIAH CARRILLO WHEAT SHIPPER 11/17/18 Mirtazapine (MIRTAZAPINE) 7.5 Mg Tablet, 7.5 MG PO QHS, #30 TAB 6 Refills Prov:SWATHI HANDY MD 11/07/18 Montelukast Sodium (SINGULAIR) 10 Mg Tablet, 1 TAB PO QDAY, #90 TAB 3 Refills Prov:SWATHI HANDY MD 11/05/18 Triamcinolone Acet 0.5% (TRIAMCINOLONE ACETONIDE 0.5%) 15 Gm Cr, 15 GM TP BID for 14 Days, #15 GM Prov:SWATHI HANDY MD 10/21/18 Prednisone 5 Mg Tab (PREDNISONE 5 MG TAB) 5 Mg Tablet, 5 MG PO QDAY, #90 TAB 4 Refills Prov:SWATHI HANDY MD 09/23/18 Pantoprazole Sodium (PANTOPRAZOLE SODIUM) 40 Mg Tablet.dr, 40 MG PO QDAY, #90 TAB.SR 3 Refills Prov:SWATHI HANDY MD 11/27/17 Hydroxychloroquine Sulfate (HYDROXYCHLOROQUINE SULFATE) 200 Mg Tablet, 1 TAB PO QDAY, #90 TAB 4 Refills Prov:SWATHI HANDY MD 11/27/17 Fluticasone Prop 50 Mcg Ns (FLONASE 50 MCG NS) 16 Gm [place].susp, 2 SPRAYS NA QDAY for 30 Days, #1 BOT 3 Refills Prov:JAY ROWLEY JR, MD 10/31/17 Reported Medications Cyanocobalamin (Vitamin B-12) (VITAMIN B-12) 1,000 Mcg Tablet, 1000 MCG PO QDAY 11/13/18 Aspirin (ASPIRIN) 81 Mg Tab.chew, 81 MG PO QDAY, TAB.CHEW 11/13/18 Albuterol Sulfate 90 Mcg/Act (PROAIR HFA 90 MCG/ACT) 8.5 Gm Hfa.aer.ad, 2 PUFF IH QDAY, INHALER 09/04/18 Fluorometholone (FLUOROMETHOLONE) 5 Ml Drops.susp, 1 DROP OU BID 09/04/18 Cholecalciferol (Vitamin D3) (D-2000) 2,000 Unit Capsule, 2000 UNIT PO QDAY, CAPSULE 11/27/17 Discontinued Reported Medications Ibuprofen (IBUPROFEN) 200 Mg Capsule, 1 CAP PO Q6H PRN for pain, CAPSULE 09/03/18 Discontinued Scripts Levothyroxine Sodium (LEVOTHYROXINE SODIUM) 75 Mcg Tablet, 75 MCG PO QDAY, #90 TAB 3 Refills Prov:ELÍAS CORRALES MD 09/23/18 Reviewed Nurses Notes: Yes Old Medical Records Reviewed: Yes Hx Smoking: No Smoking Status: Never Smoker Exposure to Second Hand Smoke?: Yes (childhood) Hx Substance Use Disorder: No Hx Alcohol Use: No Constitutional Vital Sign - Last 24 Hours 12/03/18 12/03/18 12/03/18 12/03/18 15:30 15:40 15:54 16:10 Temp 97.8 Pulse 82 78 Resp 16 B/P (MAP) 137/77 137/77 (97) 140/85 (103) Pulse Ox 96 94 O2 Delivery Room Air 12/03/18 12/03/18 12/03/18 12/03/18 16:30 16:35 17:00 17:05 Pulse 72 B/P (MAP) 125/82 (96) 75/53 (60) Pulse Ox 71 92 12/03/18 17:17 B/P (MAP) 131/61 (84) Physical Exam General Appearance: [The patient is alert, has no immediate need for airway protection and no current signs of toxicity.] [ ] Eyes: Pupils equal and round no injection. Respiratory: Chest is non tender, lungs are clear to auscultation. Cardiac: regular rate and rhythm [ ] Gastrointestinal: Abdomen is soft and non tender, no masses, bowel sounds normal. Musculoskeletal: Neck: Neck is supple and non tender. Extremities have full range of motion and are non tender. Skin: No rashes or lesions. [ ] DIFFERENTIAL DIAGNOSIS: After history and physical exam differential diagnosis was considered for syncope versus seizure hypoglycemia cardiac abnormality cardiac-induced syncope neurogenic syncope Medical Decision Making Data Points Result Diagram: 12/03/18 1605 12/03/18 1605 Laboratory Hematology Test 12/03/18 15:38 12/03/18 15:45 12/03/18 16:05 12/03/18 16:43 Urine Color Straw Urine Clarity Clear Urine pH 7.0 pH (4.8-9.5) Urine Specific [place] 1.003 Urine Protein Negative mg/dL (NEGATIVE) Urine Glucose (UA) Negative mg/dL (NEGATIVE) Urine Ketones Negative mg/dL (NEGATIVE) Urine Blood Negative (NEGATIVE) Urine Nitrite Negative (NEGATIVE) Urine Bilirubin Negative (NEGATIVE) Urine Urobilinogen Negative mg/dL (0.2-1.9) Urine Leukocyte Esterase Negative (NEGATIVE) Urine RBC None /HPF (0-2/HPF) Urine WBC <1 /HPF (0-5/HPF) Urine Squamous Epithelial Cells Moderate /LPF (</=FEW) Urine Bacteria Negative /HPF (NONE-FEW) Urine Mucus None /HPF (NONE-FEW) Whole Blood Glucose 92 mg/DL (75-110) Red Blood Count 4.07 M/uL (4.17-5.56) Mean Corpuscular Volume 93.6 fL (80.0-96.0) Mean Corpuscular Hemoglobin 31.2 pg (26.0-33.0) Mean Corpuscular Hemoglobin Concent 33.3 g/dL (32.0-36.0) Red Cell Distribution Width 14.2 % (11.5-14.5) Mean Platelet Volume 9.0 fL (7.2-11.1) Neutrophils (%) (Auto) 65.5 % (39.4-72.5) Lymphocytes (%) (Auto) 21.6 % (17.6-49.6) Monocytes (%) (Auto) 10.2 % (4.1-12.4) Eosinophils (%) (Auto) 1.9 % (0.4-6.7) Basophils (%) (Auto) 0.8 % (0.3-1.4) Nucleated RBC Relative Count (auto) 0.0 /100WBC Neutrophils # (Auto) 3.1 K/uL (2.0-7.4) Lymphocytes # (Auto) 1.0 K/uL (1.3-3.6) Monocytes # (Auto) 0.5 K/uL (0.3-1.0) Eosinophils # (Auto) 0.1 K/uL (0.0-0.5) Basophils # (Auto) 0.0 K/uL (0.0-0.1) Nucleated RBC Absolute Count (auto) 0.00 K/uL Sodium Level 137 mmol/L (137-145) Potassium Level 3.4 mmol/L (3.5-5.0) Chloride Level 101 mmol/L (98-107) Carbon Dioxide Level 26 mmol/L (22-31) Blood Urea Nitrogen 12 mg/dl (7-18) Creatinine 0.90 mg/dl (0.52-1.04) Glomerular Filtration Rate Calc > 60.0 Random Glucose 84 mg/dl (75-110) Calcium Level 9.0 mg/dl (8.4-10.2) Total Bilirubin 0.5 mg/dl (0.2-1.3) Aspartate Amino Transf (AST/SGOT) 28 U/L (0-35) Alanine Aminotransferase (ALT/SGPT) 23 U/L (0-56) Alkaline Phosphatase 66 U/L (0-126) Troponin I < 0.012 ng/ml Total Protein 7.8 g/dl (6.3-8.2) Albumin 4.3 g/dl (3.5-5.0) Prothrombin Time 13.5 seconds (12.0-14.4) Prothromb Time International Ratio 1.02 Activated Partial Thromboplast Time 29 seconds (23-35) Chemistry Test 12/03/18 15:38 12/03/18 15:45 12/03/18 16:05 12/03/18 16:43 Urine Color Straw Urine Clarity Clear Urine pH 7.0 pH (4.8-9.5) Urine Specific [place] 1.003 Urine Protein Negative mg/dL (NEGATIVE) Urine Glucose (UA) Negative mg/dL (NEGATIVE) Urine Ketones Negative mg/dL (NEGATIVE) Urine Blood Negative (NEGATIVE) Urine Nitrite Negative (NEGATIVE) Urine Bilirubin Negative (NEGATIVE) Urine Urobilinogen Negative mg/dL (0.2-1.9) Urine Leukocyte Esterase Negative (NEGATIVE) Urine RBC None /HPF (0-2/HPF) Urine WBC <1 /HPF (0-5/HPF) Urine Squamous Epithelial Cells Moderate /LPF (</=FEW) Urine Bacteria Negative /HPF (NONE-FEW) Urine Mucus None /HPF (NONE-FEW) Whole Blood Glucose 92 mg/DL (75-110) White Blood Count 4.7 k/uL (4.5-11.0) Red Blood Count 4.07 M/uL (4.17-5.56) Hemoglobin 12.7 g/dL (12.0-16.0) Hematocrit 38.1 % (34.0-47.0) Mean Corpuscular Volume 93.6 fL (80.0-96.0) Mean Corpuscular Hemoglobin 31.2 pg (26.0-33.0) Mean Corpuscular Hemoglobin Concent 33.3 g/dL (32.0-36.0) Red Cell Distribution Width 14.2 % (11.5-14.5) Platelet Count 220 K/uL (150-450) Mean Platelet Volume 9.0 fL (7.2-11.1) Neutrophils (%) (Auto) 65.5 % (39.4-72.5) Lymphocytes (%) (Auto) 21.6 % (17.6-49.6) Monocytes (%) (Auto) 10.2 % (4.1-12.4) Eosinophils (%) (Auto) 1.9 % (0.4-6.7) Basophils (%) (Auto) 0.8 % (0.3-1.4) Nucleated RBC Relative Count (auto) 0.0 /100WBC Neutrophils # (Auto) 3.1 K/uL (2.0-7.4) Lymphocytes # (Auto) 1.0 K/uL (1.3-3.6) Monocytes # (Auto) 0.5 K/uL (0.3-1.0) Eosinophils # (Auto) 0.1 K/uL (0.0-0.5) Basophils # (Auto) 0.0 K/uL (0.0-0.1) Nucleated RBC Absolute Count (auto) 0.00 K/uL Glomerular Filtration Rate Calc > 60.0 Calcium Level 9.0 mg/dl (8.4-10.2) Total Bilirubin 0.5 mg/dl (0.2-1.3) Aspartate Amino Transf (AST/SGOT) 28 U/L (0-35) Alanine Aminotransferase (ALT/SGPT) 23 U/L (0-56) Alkaline Phosphatase 66 U/L (0-126) Troponin I < 0.012 ng/ml Total Protein 7.8 g/dl (6.3-8.2) Albumin 4.3 g/dl (3.5-5.0) Prothrombin Time 13.5 seconds (12.0-14.4) Prothromb Time International Ratio 1.02 Activated Partial Thromboplast Time 29 seconds (23-35) Coagulation Test 12/03/18 16:43 Prothrombin Time 13.5 seconds Prothromb Time International Ratio 1.02 Activated Partial Thromboplast Time 29 seconds Urinalysis Test 12/03/18 15:38 Urine Color Straw Urine Clarity Clear Urine pH 7.0 pH (4.8-9.5) Urine Specific [place] 1.003 Urine Protein Negative mg/dL (NEGATIVE) Urine Glucose (UA) Negative mg/dL (NEGATIVE) Urine Ketones Negative mg/dL (NEGATIVE) Urine Blood Negative (NEGATIVE) Urine Nitrite Negative (NEGATIVE) Urine Bilirubin Negative (NEGATIVE) Urine Urobilinogen Negative mg/dL (0.2-1.9) Urine Leukocyte Esterase Negative (NEGATIVE) Urine RBC None /HPF (0-2/HPF) Urine WBC <1 /HPF (0-5/HPF) Urine Squamous Epithelial Cells Moderate /LPF (</=FEW) Urine Bacteria Negative /HPF (NONE-FEW) Urine Mucus None /HPF (NONE-FEW) ED Course/Re-evaluation ED Course 73-year-old female with unclear syncope versus seizure versus hypoglycemic episode earlier today she's had several she has an EEG scheduled tomorrow workup here is negative head CT chest x-ray EKG continual monitoring blood work all within normal limits she feels great we ambulated her she saturated 92% with name [place] pulse ox without supplemental O2 she feels great wants to go home and has an appointment tomorrow for an EEG with Lonnie davis if symptoms worsen diagnosis near syncope Decision to Disposition Date: Dec 03, 2018 Decision to Disposition Time: 17:33 Depart Departure Latest Vital Signs Vital Signs Date Time Temp Pulse Resp B/P (MAP) Pulse Ox O2 Delivery O2 Flow Rate FiO2 12/03/18 17:17 131/61 (84) 12/03/18 17:05 72 92 12/03/18 15:30 97.8 16 Room Air Impression: Primary Impression: Near syncope Condition: Improved Disposition: HOME OR SELF-CARE Referrals: SWATHI HANDY MD (PCP) 1 Day Patient Instructions: Near Syncope (ED) VIVIEN KATZ MD Dec 03, 2018 16:02
--- NOTE | 2018-12-03 16:13 | EKG ---
[place] [facility] [place] GABRIELA ROWLEY : [id number] MR: [id number] V: [id number] EXAM DATE: ORDERING PHYSICIAN: VIVIEN KATZ TECHNOLOGIST: DARREN Meek Reason : Blood Pressure : / mmHG Vent. Rate : 075 BPM Atrial Rate : 075 BPM P-R Int : 146 ms QRS Dur : 086 ms QT Int : 408 ms P-R-T Axes : 083 -39 071 degrees QTc Int : 455 ms Sinus rhythm Possible biatrial enlargement Left axis deviation Abnormal ECG Confirmed by ALEJANDRO GILL ([id number]) on 12/03/2018 5:20:03 PM Referred By: Confirmed By:ALEJANDRO GILL
[2018-12-03 16:27] LABS: PLATELET COUNT, AUTOMATED 220 K/uL (150-450)
--- NOTE | 2018-12-03 16:51 | RADIOLOGY IMAGING REPORT ---
[place] [facility] [place] NAME: Temo Chavez : 1945 MR: [id number] V: [id number] EXAM DATE: ORDERING PHYSICIAN: VIVIEN KATZ TECHNOLOGIST: Location: [facility] Patient: Temo Chavez : 1945 Visit/Account:[id number] Date of Sevice: 12/03/2018 EXAMINATION: Head CT without intravenous contrast HISTORY: Seizure. COMPARISON: 11/12/2018. TECHNIQUE: Contiguous axial images were obtained from the skull base to the vertex without intraven ous contrast. Sagittal and coronal reformatted images are also submitted. One of the following dose optimization techniques was utilized in the performance of this exam: Autom ated exposure control; adjustment of the mA and/or kV according to the patient's size; or use of an i terative reconstruction technique. Specific details can be referenced in the facility's radiology C T exam operational policy. FINDINGS: Brain and intracranial structures: Ventricles, sulci, and cisterns are normal in size. Oliveira-white ma tter differentiation is maintained. Mild patchy hypoattenuation in the white matter. Unchanged small calcified meningioma overlying the right frontal convexity. No midline shift, acute hemorrhage, or evidence of acute infarct. Vessels: Calcified plaque of the carotid siphons. Calvarium / scalp: Negative. No acute fracture. Skull base / visualized face: Negative. Visualized sinuses / orbits: The lenses have been replaced. IMPRESSION: No CT evidence of acute intracranial pathology. Mild patchy hypoattenuation in the white matter, likely chronic small vessel ischemic changes. Unchanged small calcified meningioma overlying the right frontal convexity. Report Dictated By: Randy Ojeda MD at 12/03/2018 4:39 PM Report E-Signed By: Randy Ojeda MD at 12/03/2018 4:46 PM WSN:[id number]
--- NOTE | 2018-12-03 16:59 | RADIOLOGY IMAGING REPORT ---
FACILITY: [facility] - [place] PATIENT NAME: Temo Chavez : 1945 MR: [id number] V: [id number] EXAM DATE: ORDERING PHYSICIAN: VIVIEN KATZ TECHNOLOGIST: [facility] Patient: Temo Chavez : 1945 Visit/Account:[id number] Date of Sevice: 12/03/2018 Single view of the chest Indication: Seizure. Comparison: X-ray examination September 2018 Findings: Heart size within normal limits. Lungs are clear. Bones are without acute finding. No pneumothorax or pleural effusion. IMPRESSION: 1. No acute cardiopulmonary process. Report Dictated By: Vivien Swan MD at 12/03/2018 4:39 PM Report E-Signed By: Vivien Swan MD at 12/03/2018 4:54 PM WSN:[id number]
[2018-12-03 17:06] LABS: INR 1.02
[2018-12-03 17:17] VITALS: BP 131/61
== END 2018-12-03 17:42 | disposition home or self-care (01) ==
LOC: ER 15:32
DX: R55 Syncope and collapse (principal)
CPT/HCPCS: 36416; 70450; 71045; 81001; 82040; 82247; 82310; 82374; 82435; 82565; 82947; 82948; 84075; 84132; 84155; 84295; 84450; 84460; 84484; 84520; 85025; 85610; 85730; 93005; 99284

== ENCOUNTER 2019-01-15 19:23 | Emergency (ER) | payer MEDICARE, MEDICAID ==
[2018-11-13 14:00] VITALS: Wt 38.1 kg
--- NOTE | 2019-01-15 19:26 | ER Report ---
History and Physical Time Seen By MD: 19:25 HPI/ROS CHIEF COMPLAINT: Right dorsal hand pain HISTORY OF PRESENT ILLNESS: Patient is a 73-year-old female here with complaints of right dorsal hand pain. Patient reportedly accidentally struck the dorsum of her right hand on the edge of her couch at approximately 10:00 this morning. Patient took ibuprofen around 1800 without significant relief of symptoms. Patient is neurovascularly intact at time of evaluation. Denies further injuries at this time. Capillary refill less than 3 seconds. REVIEW OF SYSTEMS: Constitutional: No fever, no chills. Musculoskeletal: + Right dorsal hand pain Skin: Erythema and tenderness of the right dorsal hand Neurological: Neurovascular exam intact Allergies: Coded Allergies: Sulfa (Sulfonamide Antibiotics) (Verified Allergy, Severe, VISUAL DISTURBANCES, 01/15/19) clavulanic acid (Verified Allergy, Severe, CHOLITIS, 01/15/19) metoclopramide (Verified Allergy, Severe, PSYCHOTIC EFFECTS, 01/15/19) codeine (Verified Allergy, Intermediate, NAUSEA, 01/15/19) meperidine (Verified Allergy, Intermediate, NAUSEA, HIVES, 01/15/19) morphine (Verified Allergy, Intermediate, NAUSEA, HIVES, 01/15/19) lactose (Verified Allergy, Mild, GI DISTRESS, 01/15/19) Niacin Preparations (Verified Allergy, Unknown, UNKNOWN, 01/15/19) cephalexin (Verified Allergy, Unknown, UNKNOWN, 01/15/19) erythromycin base (Verified Allergy, Unknown, 01/15/19) furosemide (Verified Allergy, Unknown, 01/15/19) levofloxacin (Verified Adverse Reaction, Mild, 01/15/19) tendon inflammation Home Meds Active Scripts Triamcinolone Acet 0.5% (TRIAMCINOLONE ACETONIDE 0.5%) 15 Gm Cr, 15 GM TP BID for 14 Days, #15 GM Prov:SWATHI SIMS MD 12/24/18 Hydroxychloroquine Sulfate (HYDROXYCHLOROQUINE SULFATE) 200 Mg Tablet, 1 TAB PO QDAY, #90 TAB 4 Refills Prov:SWATHI SIMS MD 12/24/18 Pantoprazole Sodium (PANTOPRAZOLE SODIUM) 40 Mg Tablet.dr, 40 MG PO QDAY, #90 TAB.SR 3 Refills Prov:SWATHI SIMS MD 12/19/18 Levothyroxine Sodium (LEVOTHYROXINE SODIUM) 50 Mcg Tablet, 50 MCG PO QDAY, #90 TAB 3 Refills Prov:SWATHI SIMS MD 12/01/18 Gentamicin Sulfate (GENTAMICIN SULFATE) 3.5 Gm Oint...g., 1-2 DROP OP Q4H for 7 Days, #1 BOTTLE 1-2 drops [id number] for 7 days in Left Eye Prov:SWATHI SIMS MD 11/24/18 Promethazine Hcl (PROMETHAZINE HCL) 12.5 Mg Tablet, 12.5 MG PO Q6H, #20 TAB Prov:JOSIAH CARRILLO [employer] ADMINISTRATOR 11/17/18 Mirtazapine (MIRTAZAPINE) 7.5 Mg Tablet, 7.5 MG PO QHS, #30 TAB 6 Refills Prov:SWATHI SIMS MD 11/07/18 Montelukast Sodium (SINGULAIR) 10 Mg Tablet, 1 TAB PO QDAY, #90 TAB 3 Refills Prov:SWATHI SIMS MD 11/05/18 Prednisone 5 Mg Tab (PREDNISONE 5 MG TAB) 5 Mg Tablet, 5 MG PO QDAY, #90 TAB 4 Refills Prov:SWATHI SIMS MD 09/23/18 Fluticasone Prop 50 Mcg Ns (FLONASE 50 MCG NS) 16 Gm [place].susp, 2 SPRAYS NA QDAY for 30 Days, #1 BOT 3 Refills Prov:JAY ROWLEY JR, MD 10/31/17 Reported Medications Cyanocobalamin (Vitamin B-12) (VITAMIN B-12) 1,000 Mcg Tablet, 1000 MCG PO QDAY 11/13/18 Aspirin (ASPIRIN) 81 Mg Tab.chew, 81 MG PO QDAY, TAB.CHEW 11/13/18 Albuterol Sulfate 90 Mcg/Act (PROAIR HFA 90 MCG/ACT) 8.5 Gm Hfa.aer.ad, 2 PUFF IH QDAY, INHALER 09/04/18 Fluorometholone (FLUOROMETHOLONE) 5 Ml Drops.susp, 1 DROP OU BID 09/04/18 Cholecalciferol (Vitamin D3) (D-2000) 2,000 Unit Capsule, 2000 UNIT PO QDAY, CAPSULE 11/27/17 Hx Smoking: No Smoking Status: Never Smoker Exposure to Second Hand Smoke?: Yes (childhood) Hx Substance Use Disorder: No Hx Alcohol Use: No Constitutional Vital Sign - Last 24 Hours 01/15/19 01/15/19 01/15/19 01/15/19 19:29 19:30 20:00 20:30 Temp 97.6 Pulse 82 81 70 Resp 16 B/P (MAP) 134/65 152/69 (96) 114/58 (76) 125/65 (85) Pulse Ox 97 96 93 94 O2 Delivery Room Air 01/15/19 21:00 Pulse 69 B/P (MAP) 115/71 (86) Pulse Ox 87 Physical Exam General Appearance: The patient is alert, has no immediate need for airway protection and no signs of toxicity. No acute distress Neurological: Neurovascular exam intact in the distal extremity Skin: Mild erythema of the right dorsal wrist Musculoskeletal: + Mild edema, tenderness on palpation of the right dorsal wrist without obvious bony deformity DIFFERENTIAL DIAGNOSIS: After history and physical exam differential diagnosis was considered for contusion, fracture, sprain Medical Decision Making EKG/Imaging Imaging PATIENT NAME: Temo Rowley : 1945 MR: [id number] V: [id number] EXAM DATE: ORDERING PHYSICIAN: SEGUNDO NATHAN TECHNOLOGIST: Location: [facility] - [place] Patient: Temo Rowley : 1945 Visit/Account:[id number] Date of Sevice: 01/15/2019 EXAMINATION: Right hand radiographs 3 views HISTORY: Right hand pain. COMPARISON: None. FINDINGS: PA, lateral and oblique views of the right hand are obtained. Bones: There is a fracture extending longitudinally through the medial hamate without significant displacement. Joint spaces: No dislocation. Hardware: None. Soft tissues: Soft tissues appear mildly swollen along the dorsum of the wrist. IMPRESSION: Acute fracture of the right hamate. ED Course/Re-evaluation ED Course Patient is a 73-year-old female here with complaints of a right dorsal hand pain after accidentally striking the hand on the corner of a couch at approximately 10:00 this morning. Patient is neurovascularly intact in the distal extremity with capillary refill less than 3 seconds. Denies further injury at this time. X-ray imaging of the hand was completed. Patient declined analgesics at this duane e as she had taken ibuprofen at approximately 1800. X-ray imaging revealed a nondisplaced hamate fracture. Patient was placed in a pre-formed splint and advised to follow-up with orthopedics within 1 week. Rest, ice, NSAIDs as needed. Return precautions provided. Decision to Disposition Date: Jan 15, 2019 Decision to Disposition Time: 21:38 Depart Departure Latest Vital Signs Vital Signs Date Time Temp Pulse Resp B/P (MAP) Pulse Ox O2 Delivery O2 Flow Rate FiO2 01/15/19 21:00 69 115/71 (86) 87 01/15/19 19:29 97.6 16 Room Air Impression: Primary Impression: Fracture, hamate Condition: Improved Disposition: HOME OR SELF-CARE Referrals: SWATHI SIMS MD (PCP) Patient Instructions: Hand Fracture (ED) Additional Instructions: You were diagnosed with a nondisplaced hamate fracture of the right hand. Please keep your splint in place, ice, elevate, take NSAIDs as needed for pain control. Please call and schedule an appointment with orthopedics at [facility] within 1 week for reevaluation and possible need for follow-up imaging. Please return immediately if you develop worsening pain, swelling, numbness or tingling. SEGUNDO NATHAN DO Jan 15, 2019 19:26
[2019-01-15 21:00] VITALS: BP 115/71
--- NOTE | 2019-01-15 21:29 | RADIOLOGY IMAGING REPORT ---
F[place] [facility] [place]IENT NAME: Temo Chavez : 1945 MR: [id number] V: [id number] EXAM DATE: ORDERING PHYSICIAN: SEGUNDO NATHAN TECHNOLOGIST: Location: [facility] Patient: Temo Chavez : 1945 Visit/Account:[id number] Date of Sevice: 01/15/2019 EXAMINATION: Right hand radiographs 3 views HISTORY: Right hand pain. COMPARISON: None. FINDINGS: PA, lateral and oblique views of the right hand are obtained. Bones: There is a fracture extending longitudinally through the medial hamate without significant di splacement. Joint spaces: No dislocation. Hardware: None. Soft tissues: Soft tissues appear mildly swollen along the dorsum of the wrist. IMPRESSION: Acute fracture of the right hamate. Report Dictated By: Randy Ojeda MD at 01/15/2019 9:20 PM Report E-Signed By: Randy Ojeda MD at 01/15/2019 9:26 PM [id number]
== END 2019-01-15 22:00 | disposition home or self-care (01) ==
LOC: ER 19:27
DX: S62.144A Nondisplaced fracture of body of hamate [unciform] bone, right wrist, initial encounter for closed fracture (principal)
CPT/HCPCS: 73130; 99283; L3763

== ENCOUNTER → 2019-03-18 | Outpatient (CLI) | payer MEDICARE, MEDICAID ==
[2018-11-13 14:00] VITALS: BMI 18.1
[~2019-03-18] MED LIST changes: -PROM12.556 PO; +PROM12.557 PO
[2019-03-18 16:11] LABS: PLATELET COUNT, AUTOMATED 243 K/uL (150-450)
== END ==
LOC: LAB 11:07
PROVIDERS: ATTEND Internal Medicine
DX: F03.90 Unspecified dementia, unspecified severity, without behavioral disturbance, psychotic disturbance, mood disturbance, and anxiety (principal); E03.9 Hypothyroidism, unspecified; E55.9 Vitamin D deficiency, unspecified; R73.09 Other abnormal glucose
CPT/HCPCS: 36415; 82040; 82247; 82306; 82310; 82374; 82435; 82565; 82607; 82746; 82947; 83036; 84075; 84132; 84155; 84295; 84439; 84443; 84450; 84460; 84520; 84550; 85025

== ENCOUNTER 2019-05-20 13:57 | Emergency (ER) | payer MEDICARE, MEDICAID ==
[2018-11-13 14:00] VITALS: Wt 38.1 kg
--- NOTE | 2019-05-20 14:39 | ER Report ---
History and Physical Time Seen By MD: 14:35 HPI/ROS CHIEF COMPLAINT: Fall, right shoulder, right elbow, right hip, right hand HISTORY OF PRESENT ILLNESS: 73-year-old female patient presents to emergency room with complaint of fall. Patient states she was out in the garden when she fell. She states that she is not sure if she lost consciousness. She states she did fall back on some concrete. She's been complaining of right shoulder pain, right elbow pain, right hip pain and right hand pain. Patient denies hitting her head. She denies any headache. She denies any nausea, vomiting. Patient states she is not taking any medication. She was having significant right shoulder pain was not able to lift up her right arm. As a result she was brought in by her . She denies any numbness or tingling to her hand. REVIEW OF SYSTEMS: Respiratory: No cough, no dyspnea. Cardiovascular: No chest pain, no palpitations. Gastrointestinal: No vomiting, no abdominal pain. Musculoskeletal: As noted above Allergies: Coded Allergies: Sulfa (Sulfonamide Antibiotics) (Verified Allergy, Severe, VISUAL DISTURBANCES, 05/20/19) clavulanic acid (Verified Allergy, Severe, CHOLITIS, 05/20/19) metoclopramide (Verified Allergy, Severe, PSYCHOTIC EFFECTS, 05/20/19) codeine (Verified Allergy, Intermediate, NAUSEA, 05/20/19) meperidine (Verified Allergy, Intermediate, NAUSEA, HIVES, 05/20/19) morphine (Verified Allergy, Intermediate, NAUSEA, HIVES, 05/20/19) lactose (Verified Allergy, Mild, GI DISTRESS, 05/20/19) Niacin Preparations (Verified Allergy, Unknown, UNKNOWN, 05/20/19) cephalexin (Verified Allergy, Unknown, UNKNOWN, 05/20/19) erythromycin base (Verified Allergy, Unknown, 05/20/19) furosemide (Verified Allergy, Unknown, 05/20/19) levofloxacin (Verified Adverse Reaction, Mild, 05/20/19) tendon inflammation Home Meds Active Scripts Levothyroxine Sodium (LEVOTHYROXINE SODIUM) 75 Mcg Tablet, 75 MCG PO QDAY, #90 TAB 2 Refills Prov:SWATHI SIMS MD 03/19/19 Triamcinolone Acet 0.5% (TRIAMCINOLONE ACETONIDE 0.5%) 15 Gm Cr, 15 GM TP BID for 14 Days, #15 GM Prov:SWATHI SIMS MD 12/24/18 Hydroxychloroquine Sulfate (HYDROXYCHLOROQUINE SULFATE) 200 Mg Tablet, 1 TAB PO QDAY, #90 TAB 4 Refills Prov:SWATHI SIMS MD 12/24/18 Pantoprazole Sodium (PANTOPRAZOLE SODIUM) 40 Mg Tablet.dr, 40 MG PO QDAY, #90 TAB.SR 3 Refills Prov:SWATHI SIMS MD 12/19/18 Gentamicin Sulfate (GENTAMICIN SULFATE) 3.5 Gm Oint...g., 1-2 DROP OP Q4H for 7 Days, #1 BOTTLE 1-2 drops [id number] for 7 days in Left Eye Prov:SWATHI SIMS MD 11/24/18 Promethazine Hcl (PROMETHAZINE HCL) 12.5 Mg Tablet, 12.5 MG PO Q6H, #20 TAB Prov:JOSIAH CARRILLO MILK TREATER 11/17/18 Mirtazapine (MIRTAZAPINE) 7.5 Mg Tablet, 7.5 MG PO QHS, #30 TAB 6 Refills Prov:SWATHI SIMS MD 11/07/18 Montelukast Sodium (SINGULAIR) 10 Mg Tablet, 1 TAB PO QDAY, #90 TAB 3 Refills Prov:SWATHI SIMS MD 11/05/18 Prednisone 5 Mg Tab (PREDNISONE 5 MG TAB) 5 Mg Tablet, 5 MG PO QDAY, #90 TAB 4 Refills Prov:SWATHI SIMS MD 09/23/18 Fluticasone Prop 50 Mcg Ns (FLONASE 50 MCG NS) 16 Gm [place].susp, 2 SPRAYS NA QDAY for 30 Days, #1 BOT 3 Refills Prov:JAY ROWLEY JR, MD 10/31/17 Reported Medications Cyanocobalamin (Vitamin B-12) (VITAMIN B-12) 1,000 Mcg Tablet, 1000 MCG PO QDAY 11/13/18 Aspirin (ASPIRIN) 81 Mg Tab.chew, 81 MG PO QDAY, TAB.CHEW 11/13/18 Albuterol Sulfate 90 Mcg/Act (PROAIR HFA 90 MCG/ACT) 8.5 Gm Hfa.aer.ad, 2 PUFF IH QDAY, INHALER 09/04/18 Fluorometholone (FLUOROMETHOLONE) 5 Ml Drops.susp, 1 DROP OU BID 09/04/18 Cholecalciferol (Vitamin D3) (D-2000) 2,000 Unit Capsule, 2000 UNIT PO QDAY, CAPSULE 11/27/17 Past Medical/Surgical History Patient has a past medical history of seizures, asthma, occasional missed beats, asthma, shortness of breath with exertion, pneumonia, ulcerative colitis, reflux, hiatal hernia, arthritis, fractures, difficulty swallowing, Sjogrens syndrome, shingles, depression, skin cancer. Patient has surgical history of skin cancer removal, bilateral cataract surgery, back surgery, rotator cuff surgery, right knee surgery, hysterectomy, partial colectomy, appendectomy. Patient has a family medical history of cancer, CAD, stroke, diabetes. Reviewed Nurses Notes: Yes Hx Smoking: No Smoking Status: Never Smoker Exposure to Second Hand Smoke?: Yes (childhood) Hx Substance Use Disorder: No Hx Alcohol Use: No Constitutional Vital Sign - Last 24 Hours 05/20/19 05/20/19 05/20/19 14:35 14:37 15:00 Temp 98.3 Pulse 89 76 Resp 20 B/P (MAP) 129/62 (84) 129/62 112/59 (76) Pulse Ox 93 95 O2 Delivery Room Air Physical Exam General Appearance: The patient is alert, has no immediate need for airway protection and no current signs of toxicity. Respiratory: Chest is non tender, lungs are clear to auscultation. Cardiac: regular rate and rhythm Gastrointestinal: Abdomen is soft and non tender, no masses, bowel sounds normal. Musculoskeletal: Neck: Neck is supple and non tender. Extremities have full range of motion and are non tender. Patient had tenderness to the right shoulder, right elbow, right hand and right hip pain. Skin: No rashes or lesions. Neuro: Patient alert and oriented 4, cranial nerves II through XII grossly intact. DIFFERENTIAL DIAGNOSIS: After history and physical exam differential diagnosis was considered for fracture, contusion, intracranial hemorrhage. Medical Decision Making EKG/Imaging Imaging EXAMINATION: CT cervical spine without IV contrast HISTORY: Fall and back pain COMPARISON: 03/21/2017. TECHNIQUE: Axial images were obtained from the skull base through the upper thoracic spine without IV contrast administration. Coronal and sagittal reformatted images were obtained from the axial source data. One of the following dose optimization techniques was utilized in the performance of this exam: Automated exposure control; adjustment of the mA and/or kV according to the patient's size; or use of an iterative reconstruction technique. Specific details can be referenced in the facility's radiology CT exam operational policy. FINDINGS: Alignment: Normal. Cranio-cervical junction: Negative. Vertebral bodies: Negative. Posterior elements: Negative. Hardware: None. Multilevel discogenic and facet related degenerative changes as on the prior study. Soft tissues: Negative. Visualized upper chest: Negative. IMPRESSION: 1. No acute fracture of the cervical spine. 2. Multilevel degenerative changes. Report Dictated By: JUAN MANUEL DIAZ at 05/20/2019 3:42 PM Report E-Signed By: JUAN MANUEL DIAZ at 05/20/2019 3:53 PM Exam type: ELBOW 3 VIEW RIGHT History: fall with pain Comparison: None. Findings: Three views were submitted. There is no evidence of acute fracture or dislocation involving the right elbow IMPRESSION: 1. No acute osteoarticular abnormality of the right elbow is seen Report Dictated By: Melissa Gunn MD at 05/20/2019 4:02 PM Report E-Signed By: Melissa Gunn MD at 05/20/2019 4:03 PM Exam type: HAND COMPLETE RIGHT History: fall with pain Comparison: January 15, 2019. Findings: There has been at least partial healing of the previously noted fracture through the hamate bone. No evidence of acute fracture or dislocation seen involving the right hand at this time. There are moderate degenerative changes involving the right second MCP joint. Degenerative changes are seen throughout the interphalangeal joints IMPRESSION: 1. There has been at least partial healing of the previously described fracture through the right hamate bone Degenerative changes as described Report Dictated By: Melissa Gunn MD at 05/20/2019 3:54 PM Report E-Signed By: Melissa Gunn MD at 05/20/2019 3:58 PM Exam type: HIP RIGHT History: fall with pain Comparison: February 05, 2015. Findings: Two views were submitted. There are mild to moderate degenerative changes at both hip joints, right greater than left. There is no evidence of acute fracture or dislocation identified IMPRESSION: 1. No evidence of acute fracture or dislocation involving the right hip Report Dictated By: Melissa Gunn MD at 05/20/2019 3:58 PM Report E-Signed By: Melissa Gunn MD at 05/20/2019 4:00 PM EXAMINATION: Head CT without intravenous contrast HISTORY: Fall. Hip pain. COMPARISON: 12/03/2018. TECHNIQUE: Contiguous axial images were obtained from the skull base to the vertex without intravenous contrast. Sagittal and coronal reformatted images are also submitted. One of the following dose optimization techniques was utilized in the performance of this exam: Automated exposure control; adjustment of the mA and/or kV according to the patient's size; or use of an iterative reconstruction technique. Specific details can be referenced in the facility's radiology CT exam operational policy. FINDINGS: Brain and intracranial structures: Mild generalized cerebral atrophy with concordant sulcal and ventricular prominence. The basal cisterns are patent. Oliveira-white matter differentiation is maintained. There is mild patchy hypoattenuation in the white matter. No midline shift, acute hemorrhage, mass, or evidence of acute infarct. Vessels: Calcified plaque of the carotid siphons. Calvarium / scalp: Negative. No acute fracture. Skull base / visualized face: Leftward deviation of the nasal septum. Visualized sinuses / orbits: The lenses have been replaced. IMPRESSION: No CT evidence of acute intracranial pathology. Mild patchy hypoattenuation in the cerebral white matter, likely chronic small vessel ischemic changes. Report Dictated By: Randy Ojeda MD at 05/20/2019 3:37 PM Report E-Signed By: Randy Ojeda MD at 05/20/2019 3:44 PM Exam type: SHOULDER MIN 2 VIEWS RIGHT History: fall with pain Comparison: None. Findings: Four views were submitted. There are postsurgical changes of the right shoulder. Peritendinous calcifications are present along the superior aspect of the right shoulder joint. There is no evidence of acute fracture or dislocation. The distal aspect the right clavicle appears to been surgically r emoved IMPRESSION: 1. Postsurgical changes of the right shoulder No evidence of acute fracture or dislocation Report Dictated By: Melissa Gunn MD at 05/20/2019 4:00 PM Report E-Signed By: Melissa Gunn MD at 05/20/2019 4:02 PM ED Course/Re-evaluation ED Course Patient was admitted to examined, history and physical were obtained. D ifferential diagnoses were considered. On examination lungs are clear, heart is regular, abdomen soft nontender. Patient did have some tenderness to the right shoulder, right elbow, right hand and right hip. X-rays are done of those. Due to the fall a CT scan of the head and cervical spine were done. Those were all negative. Discuss findings with patient. We will go ahead and discharge patient home at this time. She is on her activity by pain. She is to follow-up with her primary care provider with any concerns. She is to increase fluid intake. Patient verbalized understanding and agreement with plan. Decision to Disposition Date: May 20, 2019 Decision to Disposition Time: 16:15 Depart Departure Latest Vital Signs Vital Signs Date Time Temp Pulse Resp B/P (MAP) Pulse Ox O2 Delivery O2 Flow Rate FiO2 05/20/19 15:00 76 112/59 (76) 95 05/20/19 14:37 98.3 20 Room Air Impression: Primary Impression: Contusion, hip Additional Impressions: Shoulder contusion Hand contusion Elbow contusion Condition: Improved Disposition: HOME OR SELF-CARE Referrals: SWATHI SIMS MD (PCP) Patient Instructions: Contusion in Adults (ED) Additional Instructions: Increase fluid intake. Get plenty of rest. Follow up with your primary care provider in the next week. Return to the ER if condition worsens. Continue with your current medications. Take Tylenol or Ibuprofen as needed for pain. Problem Qualifiers Primary Impression: Contusion, hip Encounter type: initial encounter Laterality: right Qualified Codes: S70.01XA - Contusion of right hip, initial encounter Additional Impressions: Shoulder contusion Encounter type: initial encounter Laterality: right Qualified Codes: S40.011A - Contusion of right shoulder, initial encounter Hand contusion Encounter type: initial encounter Laterality: right Qualified Codes: S60.221A - Contusion of right hand, initial encounter Elbow contusion Encounter type: initial encounter Laterality: right Qualified Codes: S50.01XA - Contusion of right elbow, initial encounter PIEDAD HUTCHISONP May 20, 2019 14:39
[2019-05-20 15:00] VITALS: BP 112/59
--- NOTE | 2019-05-20 15:53 | RADIOLOGY IMAGING REPORT ---
FACILITY: [facility] PATIENT NAME: Temo Chavez : 1945 MR: [id number] V: [id number] EXAM DATE: ORDERING PHYSICIAN: PIEDAD HUTCHISON TECHNOLOGIST: Location: [facility] [place] Patient: Temo Chavez : 1945 Visit/Account:[id number] Date of Sevice: 05/20/2019 EXAMINATION: Head CT without intravenous contrast HISTORY: Fall. Hip pain. COMPARISON: 12/03/2018. TECHNIQUE: Contiguous axial images were obtained from the skull base to the vertex without intraven ous contrast. Sagittal and coronal reformatted images are also submitted. One of the following dose optimization techniques was utilized in the performance of this exam: Autom ated exposure control; adjustment of the mA and/or kV according to the patient's size; or use of an i terative reconstruction technique. Specific details can be referenced in the facility's radiology C T exam operational policy. FINDINGS: Brain and intracranial structures: Mild generalized cerebral atrophy with concordant sulcal and vent ricular prominence. The basal cisterns are patent. Oliveira-white matter differentiation is maintained. T here is mild patchy hypoattenuation in the white matter. No midline shift, acute hemorrhage, mass, or evidence of acute infarct. Vessels: Calcified plaque of the carotid siphons. Calvarium / scalp: Negative. No acute fracture. Skull base / visualized face: Leftward deviation of the nasal septum. Visualized sinuses / orbits: The lenses have been replaced. IMPRESSION: No CT evidence of acute intracranial pathology. Mild patchy hypoattenuation in the cerebral white matter, likely chronic small vessel ischemic change s. Report Dictated By: Randy Ojeda MD at 05/20/2019 3:37 PM Report E-Signed By: Randy Ojeda MD at 05/20/2019 3:44 PM WSN:[id number]
--- NOTE | 2019-05-20 16:03 | RADIOLOGY IMAGING REPORT ---
FACILITY: [facility] PATIENT NAME: Temo Chavez : 1945 MR: [id number] V: [id number] EXAM DATE: ORDERING PHYSICIAN: PIEDAD HUTCHISON TECHNOLOGIST: Location: [facility] Patient: Temo Chavez : 1945 Visit/Account:[id number] Date of Sevice: 05/20/2019 EXAMINATION: CT cervical spine without IV contrast HISTORY: Fall and back pain COMPARISON: 03/21/2017. TECHNIQUE: Axial images were obtained from the skull base through the upper thoracic spine without I V contrast administration. Coronal and sagittal reformatted images were obtained from the axial [facility] e data. One of the following dose optimization techniques was utilized in the performance of this exam: Autom ated exposure control; adjustment of the mA and/or kV according to the patient's size; or use of an i terative reconstruction technique. Specific details can be referenced in the facility's radiology C T exam operational policy. FINDINGS: Alignment: Normal. Cranio-cervical junction: Negative. Vertebral bodies: Negative. Posterior elements: Negative. Hardware: None. Multilevel discogenic and facet related degenerative changes as on the prior study. Soft tissues: Negative. Visualized upper chest: Negative. IMPRESSION: 1. No acute fracture of the cervical spine. 2. Multilevel degenerative changes. Report Dictated By: JUAN MANUEL DIAZ at 05/20/2019 3:42 PM Report E-Signed By: JUAN MANUEL DIAZ at 05/20/2019 3:53 PM WSN:[email or web address]
--- NOTE | 2019-05-20 16:08 | RADIOLOGY IMAGING REPORT ---
FACILITY: [facility] [place] PATIENT NAME: Temo Chavez : 1945 MR: [id number] V: [id number] EXAM DATE: [id number] ORDERING PHYSICIAN: PIEDAD HUTCHISON TECHNOLOGIST: Location: [facility] [place] Patient: Temo Chavez : 1945 Visit/Account:[id number] Date of Sevice: 05/20/2019 Exam type: HAND COMPLETE RIGHT History: fall with pain Comparison: January 15, 2019. Findings: There has been at least partial healing of the previously noted fracture through the hamate bone. No evidence of acute fracture or dislocation seen involving the right hand at this time. There are mod erate degenerative changes involving the right second MCP joint. Degenerative changes are seen throu ghout the interphalangeal joints IMPRESSION: 1. There has been at least partial healing of the previously described fracture through the right can mate bone Degenerative changes as described Report Dictated By: Melissa Gunn MD at 05/20/2019 3:54 PM Report E-Signed By: Melissa Gunn MD at 05/20/2019 3:58 PM WSN:[email or web address]
--- NOTE | 2019-05-20 16:09 | RADIOLOGY IMAGING REPORT ---
FACILITY: [facility] - [place], [place] PATIENT NAME: Temo Chavez : 1945 MR: [id number] V: [id number] EXAM DATE: [id number] ORDERING PHYSICIAN: PIEDAD HUTCHISON TECHNOLOGIST: Location: [facility] Patient: Temo Chavez : 1945 Visit/Account:[id number] Date of Sevice: 05/20/2019 Exam type: HIP RIGHT History: fall with pain Comparison: February 05, 2015. Findings: Two views were submitted. There are mild to moderate degenerative changes at both hip joints, right greater than left. There is no evidence of acute fracture or dislocation identified IMPRESSION: 1. No evidence of acute fracture or dislocation involving the right hip Report Dictated By: Melissa Gunn MD at 05/20/2019 3:58 PM Report E-Signed By: Melissa Gunn MD at 05/20/2019 4:00 PM WSN:[email or web address]
--- NOTE | 2019-05-20 16:10 | RADIOLOGY IMAGING REPORT ---
FACILITY: [facility] - [place] PATIENT NAME: Temo Chavez : 1945 MR: [id number] V: [id number] EXAM DATE: [id number] ORDERING PHYSICIAN: PIEDAD HUTCHISON TECHNOLOGIST: Location: [facility] [place] Patient: Temo Chavez : 1945 Visit/Account:[id number] Date of Sevice: 05/20/2019 Exam type: SHOULDER MIN 2 VIEWS RIGHT History: fall with pain Comparison: None. Findings: Four views were submitted. There are postsurgical changes of the right shoulder. Peritendinous calc ifications are present along the superior aspect of the right shoulder joint. There is no evidence o f acute fracture or dislocation. The distal aspect the right clavicle appears to been surgically rem ember IMPRESSION: 1. Postsurgical changes of the right shoulder No evidence of acute fracture or dislocation Report Dictated By: Melissa Gunn MD at 05/20/2019 4:00 PM Report E-Signed By: Melissa Gunn MD at 05/20/2019 4:02 PM WSN:[email or web address]
--- NOTE | 2019-05-20 16:11 | RADIOLOGY IMAGING REPORT ---
FACILITY: [facility] PATIENT NAME: Temo Chavez : 1945 MR: [id number] V: [id number] EXAM DATE: [id number] ORDERING PHYSICIAN: PIEDAD HUTCHISON TECHNOLOGIST: Location: [facility] Patient: Temo Chavez : 1945 Visit/Account:[id number] Date of Sevice: 05/20/2019 Exam type: ELBOW 3 VIEW RIGHT History: fall with pain Comparison: None. Findings: Three views were submitted. There is no evidence of acute fracture or dislocation involving the righ t elbow IMPRESSION: 1. No acute osteoarticular abnormality of the right elbow is seen Report Dictated By: Melissa Gunn MD at 05/20/2019 4:02 PM Report E-Signed By: Melissa Gunn MD at 05/20/2019 4:03 PM WSN:[email or web address]
== END 2019-05-20 16:33 | disposition home or self-care (01) ==
LOC: ER 14:40
DX: S70.01XA Contusion of right hip, initial encounter (principal); S40.011A Contusion of right shoulder, initial encounter; S60.221A Contusion of right hand, initial encounter; S50.01XA Contusion of right elbow, initial encounter; M54.9 Dorsalgia, unspecified; J34.2 Deviated nasal septum
CPT/HCPCS: 70450; 72125; 99284